=== PATIENT | female | born 1950 | race African-American/Black ===

== ENCOUNTER 2017-06-30 17:43 | Inpatient (IN) | payer MEDICARE, MEDICAID ==
[~2017-06-30 17:43] MED LIST: ISOVUE-370 76%-LOCM 1 ML ONE
[2017-06-30 18:18] LABS: #Lymphocytes 1.4 thou/uL (1.20-3.40); #Monocytes 0.5 thou/uL (0.11-0.59); #Neutrophils 5.6 thou/uL (1.40-6.50); %Basophils 0.3 % (0.0-1.0); %Eosinophils 0.2 % (0.0-10.0); %Lymphocytes 18.4 % (21.0-51.0); %Monocytes 6.1 % (0.0-10.0); Hemoglobin 14.6 g/dL (12.0-16.0); Mean Corpuscular HGB CONC 30.9 g/dL (32.0-36.0); Mean Corpuscular Hemoglobin 28.6 pg (27.0-31.0); Mean Corpuscular Volume 92.7 fl (81.0-99.0); Mean Platelet Volume 9.1 fL (7.4-10.4); Platelet Count 164 thou/uL (130-400); RBC Distribution Width 14.6 % (11.5-14.5); Red Blood Cell (RBC) Count 5.11 mill/uL (4.20-5.40); White Blood Cell (WBC) Count 7.4 thou/uL (4.8-10.8)
[2017-06-30] MEDS ORDERED: Albuterol Sulfate 2.5 mg/3 ml Neb ONE (18:28)
[2017-06-30 18:42] LABS: ALT (SGPT) 15 U/L (8-55); AST (SGOT) 38 U/L (5-34); Albumin 3.8 g/dL (3.4-4.8); Alkaline Phosphatase 59 U/L (40-150); Anion Gap 12 mmol/L (10-20); BUN (Urea Nitrogen) 11 mg/dL (9.8-20.1); Bilirubin, Total 0.7 mg/dL (0.2-1.2); CK (CPK) 172 U/L (29-168); Calc. Creatinine Clearance 0 mL/min (70-130); Calcium 9.4 mg/dL (7.8-10.44); Carbon Dioxide 31 mmol/L (23-31); Chloride 98 mmol/L (98-107); Estimated GFR-MDRD 87; Globulin 4.1 g/dL (2.4-3.5); Glucose 126 mg/dL (80-115); Potassium 3.7 mmol/L (3.5-5.1); Protein, Total 7.9 g/dL (6.0-8.3); Sodium 137 mmol/L (136-145)
[2017-06-30] MEDS ORDERED: methylPREDNISolone Sod Succ/PF 125 MG/2 ML VIAL ONE (18:44)
[2017-06-30] MEDS ORDERED: Magnesium Sulfate 2 GM/100 ML BAG ONE (18:44)
[2017-06-30 18:45] LABS: Troponin I 0.055 ng/mL (< 0.028)
--- NOTE | 2017-06-30 20:17 | RAD ---
PORTABLE AP CHEST RADIOGRAPH: Date: 06-30-17 History: Cough and increasing shortness of breath. Comparison: 10-04-16 FINDINGS: Cardiac silhouette is magnified by projection but does appear mildly enlarged. The pulmonary vasculat ure is within normal limits. Interstitial prominence on the prior study has improved. Lungs appear cl ear on today's examination. There is no other interval change. IMPRESSION: 1. No acute cardiopulmonary process. 2. Mild cardiomegaly, unchanged from prior study. POS: [facility]
[2017-06-30 20:36] LABS: CO2 Tension 59.7 mmHg (35.0-45.0); pH, Arterial 7.35 (7.35-7.45)
[2017-06-30 20:37] LABS: Actual Bicarbonate (HCO3a) 31.8 mEq/L (22-26); Base Excess (BEa) 4.4 mEq/L (0 (+/-) 2.5); Hematocrit-ABG 48.2 % (36.0-47.0); Hemoglobin (Hb) 13.7 g/dL (12.0-16.0); O2 Tension (PaO2) 55.9 mmHg (80.0-100.0)
[2017-06-30 20:38] LABS: ALV-art Gradient 124.355 (0-20); Analyzer IN Cardio ER; Calcium, Ionized 1.2 mmol/L (1.12-1.30); Puncture Site RRA
--- NOTE | 2017-06-30 21:58 | CT ---
CT ANGIOGRAM OF THE CONTRAST WITH IV CONTRAST AND 3D RECONSTRUCTIONS: Date: 06-30-17 History: Cough for two days. Right lower quadrant abdominal pain. Comparison: None available. FINDINGS: No filling defects are seen in the pulmonary arteries to suggest a pulmonary embolus. Vascular calcifications are seen in the coronary arteries and thoracic aorta. Thoracic aorta is yordan l in caliber without evidence of an aortic dissection. There is an increased number of mediastinal ly mph nodes with a prevascular space lymph node measuring 1.2 cm in short axis dimension and a precarin al lymph node measuring approximately 1.7 cm. There is also an enlarged right hilar lymph node measur ing 3 cm x 1.3 cm with soft tissue density also seen in the left hilar region suggesting lymphadenopa thy. This may be reactive in origin. There is a small right pleural effusion with atelectasis present. There is also atelectasis at the le ft lung base. There is an approximately 4 mm nodular density seen along the minor fissure which may r epresent nodular pleural thickening. No additional pulmonary nodule or mass is seen. Visualized upper abdomen demonstrates no gross abnormalities for arterial phase imaging. IMPRESSION: 1. No CT evidence for pulmonary embolus. 2. Atherosclerotic vascular calcifications. 3. Mediastinal and hilar lymphadenopathy which may be reactive in origin. 4. Bibasilar atelectasis with tiny right pleural effusion. POS: [facility]
[2017-06-30 22:13] LABS: Troponin I 0.039 ng/mL (< 0.028)
--- NOTE | 2017-06-30 22:21 | CT ---
CT ABDOMEN AND PELVIS WITH IV CONTRAST: Date: 06-30-17 History: Right lower quadrant abdominal pain. FINDINGS: There is a tiny right pleural effusion with bibasilar atelectasis present. Thin walled cystic structu re is seen in the region of atelectasis at the right lung base. Liver demonstrates diminished attenuation suggesting fatty infiltration. There are few ill-defined ar eas of enhancement at the periphery of the liver, probably related to transient hepatic arterial diff erences due to arterial phase of imaging of this exam. The spleen, pancreas, bilateral adrenal glands, kidneys and urinary bladder demonstrate a normal CT a ppearance for arterial phase of imaging. No enlarged lymph nodes are seen by CT size criteria, but there is an increased number of aortocaval lymph nodes present. Mild to moderate amount of intraperitoneal free fluid is seen in the pelvis. There is evidence of hys terotomy. The appendix is not visualized on this examination. Vascular calcifications are seen in the abdominal aorta and involving the iliac arteries. Degenerative changes are noted in the spine. The small bowel is normal in caliber. There is mild subc utaneous edema posteriorly at the level of the pelvis. IMPRESSION: 1. Small right pleural effusion and atelectasis. 2. Mild fatty infiltration of the liver. 3. Lymphadenopathy based on increased number of lymph nodes in the aortocaval location, but no enlarg ed lymph nodes are identified. 4. Small to moderate amount of ascites in the pelvis. 5. Hysterectomy. POS: [facility]
--- NOTE | 2017-06-30 23:10 | HP ---
DATE OF ADMISSION: 06/30/2017 CHIEF COMPLAINT: Shortness of breath. HISTORY OF PRESENT ILLNESS: This is a 67-year-old -[place] female who was living independent ly by herself. She is a chronic smoker and she continues to smoke and today, she happened to have ac deven shortness of breath, unable to breathe. She called the EMS and the patient was brought to the EM S on the bleeding mass. On a rebreather, she was saturating at 92%, but while she was in the ER, she dropped her saturations to 80% to 88% on nonrebreather mask and was pretty tachypneic, so the patien t was started on BiPAP. She had ABG done which showed a pH of 7.35 with pCO2 of 59.7. The patient d enies having any chest pain at this time. No nausea, no vomiting, no diarrhea, no constipation. She denies having any headache or dizziness at this time. The patient is unable to talk in full sentenc es at this time because of the acute shortness of breath. PAST MEDICAL HISTORY: 1. COPD. 2. Type 2 diabetes mellitus. 3. Hypertension. 4. Dyslipidemia. 5. Anxiety. 6. Bipolar disorder. 7. History of carotid stenosis. 8. History of seizure disorder. PAST SURGICAL HISTORY: 1. Hysterectomy. 2. Tubal ligation. 3. Trigger finger. 4. History of ear surgery, nonspecific at this time. ALLERGIES: No known drug allergies. FAMILY HISTORY: Significant for IL in her father and also coronary artery disease in her mother at a young age. Sister has type 2 diabetes mellitus. SOCIAL HISTORY: The patient is a chronic smoker. She smokes every day at least a pack a day. Denie s alcohol or illicit drug use. She lives alone at home. She has 4 daughters. HOME MEDICATIONS: 1. Budesonide formoterol 1 puff inhalation b.i.d. 2. Combivent inhalation t.i.d. 3. Levofloxacin 750 mg p.o. 2200. 4. Metformin 1000 mg p.o. b.i.d. 5. Mirtazapine 15 mg p.o. at bedtime. 6. Mometasone two puffs inhalation b.i.d. 7. Prednisone 40 mg p.o. daily. 8. Amlodipine 10 mg p.o. daily. 9. Carvedilol 6.25 mg p.o. b.i.d. 10. Clonidine 0.2 mg p.o. b.i.d. 11. Glimepiride 4 mg p.o. b.i.d. 12. Hydralazine 50 mg p.o. b.i.d. 13. Insulin 100 units subcu b.i.d. 14. Losartan 100 mg p.o. daily. 15. Sertraline 100 mg p.o. daily. 16. Simvastatin 10 mg p.o. at bedtime. 17. Sitagliptin 100 mg p.o. daily. 18. Trazodone 100 mg p.o. at bedtime. REVIEW OF SYSTEMS: All 12 systems are reviewed with the patient thoroughly and found to be negative at this time except ones described in the HPI. The following complete review of systems was negative , unless otherwise mentioned in the HPI or below: Constitutional: Weight loss or gain, sense of well-being, ability to conduct usual activities, exerc ise tolerance. Skin/Breast: Rash, itching, changes in hair growth or loss, nail changes, breast lum ps, tenderness, swelling, nipple discharge. Eyes: Vision, double vision, tearing, blind spots, pain . ENT/Mouth: Headaches (location, time of onset, duration, precipitating factors), vertigo, lightheadedness, injury. Vision, double vision, tearing, blind spots, pain, nose b leeding, colds, obstruction, discharge, dental difficulties, gingival bleeding, dentures, neck stiffn ess, pain, tenderness, masses in thyroid or other areas. Cardiovascular: Precordial pain, substerna l distress, palpitations, syncope, dyspnea on exertion, orthopnea, nocturnal paroxysmal dyspnea, vel a, cyanosis, hypertension, heart murmurs, varicosities, phlebitis, claudication. Respiratory: Pain, shortness of breath, wheezing, stridor, cough, hemoptysis, fever or night sweats. Gastrointestinal: Poor appetite, dysphagia, indigestion, abdominal pain, heartburn, eructation, nausea, vomiting, hem atemesis, jaundice, constipation, or diarrhea, abnormal stools (bjorn-colored, tarry, bloody, greasy, foul smelling), flatulence, hemorrhoids, recent changes in bowel habits. Genitourinary: Urgency, fr equency, dysuria, nocturia, hematuria, polyuria, oliguria, unusual (or change in) color of urine, sto toni, hesitancy, change in size of stream, dribbling, acute retention or incontinence, libido, potency . Musculoskeletal: Pain, swelling, redness or heat of muscles or joints, limitation, of motion, mus cular weakness, atrophy, cramps. Neurologic/Psychiatric: Convulsions, paralyses, tremor, incoordina tion, parasthesias, difficulties with memory of speech, sensory or motor disturbances, or muscular co ordination (ataxia, tremor), emotional problems, anxiety, depression, previous psychiatric care, unus ual perceptions, hallucinations. Allergy/Immunologic: Skin rash, anemia, bleeding tendency, polydip elizabeth, polyuria, intolerance to heat or cold. PHYSICAL EXAMINATION: VITAL SIGNS: Blood pressures were 150/88, heart rate is 88, respiratory rate is 22, saturation is 92 % on BiPAP at 40% FiO2. GENERAL: The patient is seen sitting on the bed with 45 degrees inclination on the BiPAP. She appea rs to be in severe respiratory distress. HEENT: Atraumatic, normocephalic. PERRLA. Extraocular movements were intact. Oral mucosa pink and moist. CARDIOVASCULAR: S1, S2 normal. No murmurs, rubs or gallops. LUNGS: The patient has bilateral air entry reduced with wheezing noted bilaterally and diffusely. No crackles were noted, signs of accessory muscle use of respiration. ABDOMEN: Soft, nontender, no guarding, no rebound tenderness. Bowel sounds normal. MUSCULOSKELETAL: No calf tenderness. No pedal edema. No joint tenderness, no joint swelling. SKIN: No cyanosis, no erythema, no rash, no pallor. SENIOR SOLUTIONS ENGINEER: Cranial nerve examination II-XII intact. No focal deficits were noted. LYMPHATIC: Lymphadenopathy, no evidence of generalized lymphadenopathy was noted. PSYCHIATRIC: No signs of suicidal ideation. No signs of vy was noted. LABORATORY DATA: ABG: pH of 7.3, pCO2 was 59, pO2 was 55.9, O2 sats are 87.6. WBC 7.4, hemoglobin 14.6, hematocrit is 47.4, platelets 164. Sodium 137, potassium 3.7, chloride is 98, BUN 11, creatini ne 0.8. Troponin was 0.055 and the next one was 0.03. ASSESSMENT: 1. Acute hypoxic and hypercapnic respiratory failure. 2. Acute chronic obstructive pulmonary disease exacerbation. 3. Demand ischemia. 4. Type 2 diabetes mellitus, well-controlled. 5. History of bipolar disorder. 6. Hypertension. 7. Hyperlipidemia. 8. Insomnia. PLAN: 1. Plan is to admit this patient to the [facility]. We will continue the patient on the BiPAP. Patient h as been started on BiPAP 15/5 with FIO2 to keep saturations more than 92%. I will consult Pulmonary if the patient's condition becomes worse and will repeat the ABG in 2 hours to look for improvement. If the bicarbonate continues to go up, we will consult Pulmonary right away. 2. We will start the patient on Solu-Medrol 40 mg IV q.8 hours. We will continue with DuoNeb nebuli zation q.4 hours scheduled and q.2 hours albuterol nebulizations p.r.n. 3. The patient has evidence of elevated troponins which have been trending down, most likely this is demand ischemia. Patient denies having any chest pain. We will continue the patient on home medica tions. We will start the patient on aspirin. She is on statin and beta kristian. 4. Type 2 diabetes mellitus, well-controlled. We will continue the patient on the home medications. She is on glimepiride 4 mg p.o. b.i.d., and sitagliptin. We will continue these 2 medications and will hold the metformin. 5. Hypertension is well controlled. We will continue the patient on the home medications. She is o n hydralazine and losartan. 6. The patient has history of bipolar disorder. We will continue the patient on sertraline at this time. 7. Deep venous thrombosis prophylaxis. Lovenox 40 mg. Dictating physician. Chin Levin, spent 70 minutes with this patient; of this, one hour as a critical care time.
[2017-07-01 00:51] LABS: Troponin I 0.053 ng/mL (< 0.028)
[2017-07-01] MEDS ORDERED: Acetaminophen 325 MG TAB PO PRN (01:55)
[2017-07-01] MEDS ORDERED: Ondansetron ODT 4 MG TAB PO PRN (01:55)
[2017-07-01] MEDS ORDERED: Ondansetron HCl/PF 4 MG/2 ML Vial IVP PRN (01:55)
[2017-07-01] MEDS ORDERED: Guaifenesin DM 100-10/5 ML UDCUP PO PRN (01:55)
[2017-07-01] MEDS ORDERED: Albuterol Sulfate 2.5 mg/3 ml Neb NEB PRN (01:55)
[2017-07-01] MEDS ORDERED: HYDROcodone/Acetaminophen 5/325 mg Tablet PO PRN (01:55)
[2017-07-01 01:56] VITALS: BMI 32.4
[2017-07-01 02:44] LABS: #Basophils 0.1 thou/uL (0.0-0.2); #Lymphocytes 0.3 thou/uL (1.20-3.40); #Monocytes 0.1 thou/uL (0.11-0.59); #Neutrophils 5.8 thou/uL (1.40-6.50); %Basophils 1.6 % (0.0-1.0); %Eosinophils 0.1 % (0.0-10.0); %Lymphocytes 5.2 % (21.0-51.0); %Monocytes 1.1 % (0.0-10.0); Hemoglobin 13.9 g/dL (12.0-16.0); Mean Corpuscular HGB CONC 31.6 g/dL (32.0-36.0); Mean Corpuscular Hemoglobin 29.2 pg (27.0-31.0); Mean Corpuscular Volume 92.4 fl (81.0-99.0); Mean Platelet Volume 9.3 fL (7.4-10.4); Platelet Count 155 thou/uL (130-400); RBC Distribution Width 14.5 % (11.5-14.5); Red Blood Cell (RBC) Count 4.78 mill/uL (4.20-5.40); White Blood Cell (WBC) Count 6.3 thou/uL (4.8-10.8)
[2017-07-01 03:18] LABS: Anion Gap 13 mmol/L (10-20); BUN (Urea Nitrogen) 14 mg/dL (9.8-20.1); Calc. Creatinine Clearance 89 mL/min (70-130); Calcium 9.1 mg/dL (7.8-10.44); Carbon Dioxide 30 mmol/L (23-31); Chloride 99 mmol/L (98-107); Estimated GFR-MDRD 83; Glucose 247 mg/dL (80-115); Potassium 3.8 mmol/L (3.5-5.1); Sodium 138 mmol/L (136-145)
[2017-07-01 08:21] LABS: CO2 Tension 65.8 mmHg (35.0-45.0); O2 Tension (PaO2) 67.2 mmHg (80.0-100.0); pH, Arterial 7.32 (7.35-7.45)
[2017-07-01 08:22] LABS: Base Excess (BEa) 4.9 mEq/L (0 (+/-) 2.5); Calcium, Ionized 1.2 mmol/L (1.12-1.30); Hematocrit-ABG 46.9 % (36.0-47.0); Hemoglobin (Hb) 13.3 g/dL (12.0-16.0)
[2017-07-01 08:23] LABS: Puncture Site RRA
[2017-07-01] MEDS ORDERED: INSULIN DETEMIR 100 UNIT SC SCH (09:00)
[2017-07-01] MEDS ORDERED: Famotidine/PF 20 mg/2ml Vial SLOW IVP SCH (09:00)
[2017-07-01] MEDS ORDERED: Insulin Detemir 100 UNITS/ML 100 UNITS in Pre-Filled Syringe 1 EACH SC SCH (09:00)
--- NOTE | 2017-07-01 09:00 | CON ---
DATE OF CONSULTATION: 07/01/2017 CONSULTING PHYSICIAN: Dr. Thompson from the Hospitalist group. REASON FOR CONSULTATION: COPD exacerbation. HISTORY OF PRESENT ILLNESS: Ms. Gutierrez is a 67-year-old female who came to the emergency room night with shortness of breath and wheezing, says this started rather acutely yesterday. The jamin ent was placed on BiPAP and remained on BiPAP overnight and feels better this morning. She tells me that she wears oxygen at home 2 liters nasal cannula 24 hours a day. She still smokes at home despit e being counseled to quit in the past. PAST MEDICAL HISTORY: 1. COPD. 2. Diabetes mellitus. 3. Hypertension. 4. Hyperlipidemia. 5. Anxiety. 6. Bipolar disorder. 7. Peripheral vascular disease. 8. Seizure disorder. PAST SURGICAL HISTORY: 1. Hysterectomy. 2. Tubal ligation. 3. Trigger finger release. ALLERGIES: None. FAMILY MEDICAL HISTORY: Remarkable for heart disease. SOCIAL HISTORY: Half pack to 1 pack per day smoker and has done so for over 50 years. She lives at home by herself, has 4 daughters. MEDICATIONS PRIOR TO ADMISSION: Gabapentin 300 mg t.i.d., [place] 10/325 one every 8 hours as needed, Dulera 200/5 two puffs twice daily, Combivent 3 times daily as needed, Lispro insulin 10 units t.i.d. , Levemir insulin 100 units b.i.d., Symbicort is also listed 160/4.5 two puffs b.i.d. She is probabl y not taking Symbicort and Dulera together. Mirtazapine 15 mg nightly, Norvasc 10 mg daily, metformi n 1000 mg b.i.d., Catapres 0.2 mg b.i.d., losartan 100 mg daily, Apresoline 50 mg b.i.d., trazodone 1 00 mg at bedtime, simvastatin 10 mg daily, Januvia 100 mg daily, Amaryl 4 mg b.i.d., sertraline 100 m g daily, carvedilol 6.25 mg b.i.d., fenofibrate 48 mg daily. REVIEW OF SYSTEMS: Twelve point review of systems otherwise negative. PHYSICAL EXAMINATION: VITAL SIGNS: Temperature 98.0, pulse 75, blood pressure 136/61, O2 sat 88-92%, wearing a nasal shayy radha currently. GENERAL: She is an obese female who is in no acute distress. HEENT: Pupils react. Sclerae are anicteric. Oropharynx clear. NECK: Without adenopathy or JVD. LUNGS: She has mild expiratory wheezing bilaterally. No crackles. CARDIAC: S1, S2 regular, without murmur. ABDOMEN: Obese, soft, nontender, nondistended. EXTREMITIES: No clubbing, cyanosis, or edema. NEUROLOGIC: Shows no focal deficits. SKIN: Shows no lesions. LABORATORY DATA: White blood cell count 6.3, hematocrit 44.1, platelet count 155. ABG, pH 7.31, pCO 2 65, pO2 67 that was on BiPAP. Sodium 130, potassium 3.8, chloride 99, CO2 30, BUN 14, creatinine 0 .8, glucose 247. Chest x-ray interpreted by myself shows no mass, effusion or infiltrate. ASSESSMENT: 1. Acute hypercapnic/hypoxic respiratory failure secondary to chronic obstructive pulmonary disease exacerbation. 2. Chronic obstructive pulmonary disease exacerbation. 3. Tobacco abuse. PLAN: Agree with current plan of steroids, nebulization treatment and BiPAP. I agree with antibioti cs. Hopefully she will be able to stay off the BiPAP today and transfer to floor later this afternoo n.
[2017-07-01] MEDS: hydrALAZINE 25 MG TAB PO SCH ×2 (09:56→20:34)
[2017-07-01] MEDS: Docusate 100 MG CAP PO SCH ×2 (09:56→20:32)
[2017-07-01] MEDS: Glimepiride 4 MG TAB PO SCH ×2 (09:56→20:38)
[2017-07-01] MEDS: Alogliptin 25 MG TAB PO SCH (09:56)
[2017-07-01] MEDS: Losartan 25 MG TAB PO SCH (09:56)
[2017-07-01] MEDS: Carvedilol 6.25 MG TAB PO SCH ×2 (09:56→20:31)
[2017-07-01] MEDS: Enoxaparin Sodium 40 MG/0.4 ML SYRINGE SC SCH (09:57)
[2017-07-01] MEDS: cloNIDine 0.2 MG TAB PO SCH ×2 (09:57→20:32)
[2017-07-01] MEDS: Amlodipine 5 MG TAB PO SCH (09:57)
[2017-07-01] MEDS: Famotidine 20 MG TAB PO SCH ×2 (10:10→20:32)
[2017-07-01] MEDS: HumaLOG 300 UNITS/3 ML VIAL SC SCH ×3 (10:11→17:45)
--- NOTE | 2017-07-01 15:22 | PDOC.PN ---
- Subjective Encounter Start Date: 07/01/17 Encounter Start Time: 15:21 Subjective: feels much better.breathing easier - Objective Resuscitation Status: Resuscitation Status FULL:Full Resuscitation MAR Reviewed: Yes Vital Signs & Weight: Vital Signs (12 hours) Temp Pulse Resp Pulse Ox 07/01/17 14:39 87 21 H 93 L 07/01/17 11:00 98.6 F 07/01/17 10:22 81 20 90 L 07/01/17 09:57 77 07/01/17 09:56 77 07/01/17 08:10 77 17 93 L 07/01/17 08:00 98.0 F 77 17 95 Weight Admit Weight 182 lb 15.739 oz Weight 182 lb 15.739 oz Most Recent Monitor Data Heart Rate from ECG 73 NIBP 119/50 NIBP BP-Mean 88 Respiration from ECG 23 SpO2 90 I&O: 06/30/17 07/01/17 07/02/17 06:59 06:59 06:59 Intake Total 100 480 Output Total 200 0 Balance -100 480 Result Diagrams: 07/01/17 02:29 07/01/17 02:29 Additional Labs: Accuchecks 07/01/17 11:56 POC Glucose 261 H Phys Exam - Physical Examination Constitutional: NAD HEENT: PERRLA, moist MMs, sclera anicteric, oral pharynx no lesions Neck: no nodes, no JVD, supple, full ROM Respiratory: no wheezing, no rales, no rhonchi, clear to auscultation bilateral Cardiovascular: RRR, no significant murmur, no rub, gallop Gastrointestinal: soft, non-tender, no distention, positive bowel sounds Musculoskeletal: no edema, pulses present Neurological: non-focal, normal sensation, moves all 4 limbs Psychiatric: normal affect, A&O x 3 Skin: no rash Dx/Plan (1) Acute hypoxemic respiratory failure Code(s): J96.01 - ACUTE RESPIRATORY FAILURE WITH HYPOXIA Status: Acute (2) Acute bronchitis with COPD Code(s): J44.0 - CHRONIC OBSTRUCTIVE PULMON DISEASE W ACUTE LOWER RESP INFCT; J20.9 - ACUTE BRONCHITIS, UNSPECIFIED Status: Acute (3) HTN (hypertension) Code(s): I10 - ESSENTIAL (PRIMARY) HYPERTENSION Status: Acute - Plan continue antibiotics, respiratory therapy, incentive spirometry, out of bed/ ambulate, DVT proph w/SCDs cont Nebs,Steroids,empiric ABx.off of Bipap. -: home meds as below. -: Ok to transfer out of CCU -: am labs * . Review of Systems - Review of Systems Constitutional: negative: fever, chills, sweats, weakness, malaise, other Respiratory: SOB with Excertion. negative: Cough, Dry, Shortness of Breath, Hemoptysis, Pleuritic Pain, Sputum, Wheezing Cardiovascular: negative: chest pain, palpitations, orthopnea, paroxysmal nocturnal dyspnea, edema, light headedness, other Gastrointestinal: negative: Nausea, Vomiting, Abdominal Pain, Diarrhea, Constipation, Melena, Hematochezia, Other Genitourinary: negative: Dysuria, Frequency, Incontinence, Hematuria, Retention , Other Musculoskeletal: negative: Neck Pain, Shoulder Pain, Arm Pain, Back Pain, Hand Pain, Leg Pain, Foot Pain, Other Neurological: negative: Weakness, Numbness, Incoordination, Change in Speech, Confusion, Seizures, Other - Medications/Allergies Allergies/Adverse Reactions: Allergies Allergy/AdvReac Type Severity Reaction Status Date / Time No Known Allergies Allergy Verified 07/05/15 00:55 Medications: Current Medications Acetaminophen (Tylenol) 650 mg PO Q4H PRN PRN Reason: Headache/Fever or Pain Hydrocodone Bitart/Acetaminophen ([place] 5/325) 1 tab PO Q4H PRN PRN Reason: Moderate Pain (4-6) Albuterol Sulfate (Ventolin) 2.5 mg NEB [id number] PRN PRN Reason: SOB &/or Wheezing Albuterol/Ipratropium (Duoneb) 3 ml NEB [id number] [facility] Last Admin: 07/01/17 14:39 Dose: 3 ml Alogliptin Benzoate (Alogliptin) 25 mg PO DAILY [facility] Last Admin: 07/01/17 09:56 Dose: 25 mg Amlodipine Besylate (Norvasc) 10 mg PO DAILY [facility] Last Admin: 07/01/17 09:57 Dose: 10 mg Arformoterol Tartrate (Brovana) 15 mcg NEB BID-RT [facility] Aspirin (Aspirin Chewable) 81 mg PO DAILY [facility] Last Admin: 07/01/17 09:56 Dose: 81 mg Budesonide (Pulmicort Neb Solution) 0.5 mg INH BID-RT [facility] Carvedilol (Coreg) 6.25 mg PO BID [facility] Last Admin: 07/01/17 09:56 Dose: 6.25 mg Clonidine (Catapres) 0.2 mg PO BID [facility] Last Admin: 07/01/17 09:57 Dose: 0.2 mg Docusate Sodium (Colace) 100 mg PO BID [facility] Last Admin: 07/01/17 09:56 Dose: 100 mg Enoxaparin Sodium (Lovenox) 40 mg SC 0900 [facility] Last Admin: 07/01/17 09:57 Dose: 40 mg Famotidine (Pepcid) 20 mg PO Q12HR [facility] Last Admin: 07/01/17 10:10 Dose: 20 mg Glimepiride (Amaryl) 4 mg PO BID [facility] Last Admin: 07/01/17 09:56 Dose: 4 mg Guaifenesin/Dextromethorphan (Robitussin Dm) 15 ml PO Q4H PRN PRN Reason: Cough Hydralazine HCl (Apresoline) 50 mg PO BID [facility] Last Admin: 07/01/17 09:56 Dose: 50 mg Levofloxacin 750 mg/ Device 150 mls @ 100 mls/hr IVPB Q24HR [facility] Last Admin: 07/01/17 02:18 Dose: 150 mls Insulin Detemir 100 units/ (Miscellaneous Medication) 1 mls @ 0 mls/hr SC BID [facility] Influenza Virus Vaccine (Fluzone High-Dose Syr) 0.5 ml IM .ONCE ONE Stop: 07/02/17 09:01 Insulin Human Lispro (Humalog) 10 units SC TID-WM [facility] Last Admin: 07/01/17 11:56 Dose: 10 unit Losartan Potassium (Cozaar) 100 mg PO DAILY [facility] Last Admin: 07/01/17 09:56 Dose: 100 mg Methylprednisolone Sodium Succinate (Solu-Medrol) 40 mg IVP Q6HR [facility] Last Admin: 07/01/17 11:57 Dose: 40 mg Ondansetron HCl (Zofran Odt) 4 mg PO Q6H PRN PRN Reason: Nausea/Vomiting Ondansetron HCl (Zofran) 4 mg IVP Q6H PRN PRN Reason: Nausea/Vomiting Sertraline HCl (Zoloft) 100 mg PO DAILY [facility] Last Admin: 07/01/17 09:57 Dose: 100 mg Simvastatin (Zocor) 10 mg PO HS IZABELA
[2017-07-01] MEDS: Budesonide 0.5 MG/2 ML NEB INH SCH (18:36)
[2017-07-01] MEDS: Arformoterol 15 MCG/2 ML NEB NEB SCH (18:38)
[2017-07-01] MEDS ORDERED: Sodium Chloride 0.9% 10 ML ONE (20:21)
[2017-07-01] MEDS: Insulin Detemir 100 UNITS/ML 100 UNITS in Pre-Filled Syringe 1 EACH SC SCH (20:34)
[2017-07-01] MEDS: Simvastatin 5 MG TAB PO SCH (20:34)
[2017-07-01] MEDS ORDERED: traZODone HCl 50 MG TAB PO SCH (21:00)
--- NOTE | 2017-07-02 07:17 | PDOC.PULPN ---
Progress Note: Subj/Obj - Subjective Date: 07/02/17 Time: 07:16 Narrative: Doing well. Didn't require bipap last pm - Objective Allergies/Adverse Reactions: Allergies Allergy/AdvReac Type Severity Reaction Status Date / Time No Known Allergies Allergy Verified 07/05/15 00:55 MAR Reviewed: Yes Vital Signs: Vital Signs Temp 98.1 F 07/02/17 04:00 Pulse 76 07/02/17 02:00 Resp 17 07/02/17 02:00 BP 130/58 L 07/01/17 20:34 Pulse Ox 93 L 07/02/17 02:00 Intake & Output 07/01/17 07/02/17 07/02/17 18:59 06:59 18:59 Intake Total 720 250 Output Total 0 300 Balance 720 -50 Intake: Intake, IV Amount 150 Levofloxacin 750 mg/D5W 150 750 mg In Premix Bag 1 bag @ 100 mls/hr IVPB Q24HR IZABELA Rx#:[id number] Oral 720 100 Output: Urine 0 300 Other: Voiding Method Incontinent # Unmeasured Voids 1 1 # Urine Diapers 1 1 # Bowel Movements 1 # Bowel Movement Diapers 1 Progress Note: Exam - Physical Exam Constitutional: NAD HEENT: PERRLA Neck: no JVD Cardiovascular: RRR Respiratory: clear to auscultation bilaterally Gastrointestinal: soft, non-tender Musculoskeletal: no edema Neurological: non-focal, moves all 4 limbs Lymphatic: no nodes Psychiatric: normal affect, A&O x 3 Skin: no rash Progress Note: Data - Labs Result Diagrams: 07/01/17 02:29 07/01/17 02:29 Progress Note: A/P - Plan Plan: transfer to medical continue steroids, nebs, abx smoking cessation
[2017-07-02] MEDS: Budesonide 0.5 MG/2 ML NEB INH SCH ×2 (08:35→18:36)
[2017-07-02] MEDS: Arformoterol 15 MCG/2 ML NEB NEB SCH ×2 (08:36→18:36)
[2017-07-02] MEDS ORDERED: FLU VACC TS2017-18 (>65YR) 0.5 ML SYRINGE IM ONE (09:00)
[2017-07-02] MEDS: Alogliptin 25 MG TAB PO SCH (10:16)
[2017-07-02] MEDS: Amlodipine 5 MG TAB PO SCH (10:17)
[2017-07-02] MEDS: Docusate 100 MG CAP PO SCH ×2 (10:18→21:12)
[2017-07-02] MEDS: Carvedilol 6.25 MG TAB PO SCH ×2 (10:18→22:30)
[2017-07-02] MEDS: Enoxaparin Sodium 40 MG/0.4 ML SYRINGE SC SCH (10:19)
[2017-07-02] MEDS: Famotidine 20 MG TAB PO SCH ×2 (10:20→21:13)
[2017-07-02] MEDS: Glimepiride 4 MG TAB PO SCH ×2 (10:20→22:18)
[2017-07-02] MEDS: Losartan 25 MG TAB PO SCH (10:21)
[2017-07-02] MEDS: HumaLOG 300 UNITS/3 ML VIAL SC SCH ×3 (10:28→17:52)
[2017-07-02] MEDS: hydrALAZINE 25 MG TAB PO SCH ×2 (10:29→21:13)
[2017-07-02] MEDS: cloNIDine 0.2 MG TAB PO SCH ×2 (10:29→21:13)
[2017-07-02] MEDS: Insulin Detemir 100 UNITS/ML 100 UNITS in Pre-Filled Syringe 1 EACH SC SCH (10:30)
--- NOTE | 2017-07-02 13:45 | PDOC.PN ---
- Subjective Encounter Start Date: 07/02/17 Encounter Start Time: 13:43 Subjective: feels well.still some SOb w low O2 sats now & then - Objective Resuscitation Status: Resuscitation Status FULL:Full Resuscitation MAR Reviewed: Yes Vital Signs & Weight: Vital Signs (12 hours) Temp Pulse Pulse Pulse Pulse Pulse Resp 07/02/17 12:00 97.4 F L 07/02/17 10:40 74 25 H 07/02/17 10:29 74 07/02/17 10:18 07/02/17 10:17 74 07/02/17 09:46 78 81 77 83 07/02/17 08:34 74 21 H 07/02/17 07:47 98.6 F 71 24 H 07/02/17 07:00 98.6 F 07/02/17 04:00 98.1 F 07/02/17 02:00 76 17 BP BP BP BP BP Pulse Ox Pulse Ox 07/02/17 12:00 07/02/17 10:40 92 L 07/02/17 10:29 127/61 07/02/17 10:18 127/61 07/02/17 10:17 127/61 07/02/17 09:46 136/56 L 97/65 138/61 127/61 88 L 07/02/17 08:34 93 L 07/02/17 07:47 92 L 07/02/17 07:00 07/02/17 04:00 07/02/17 02:00 93 L Pulse Ox Pulse Ox Pulse Ox 07/02/17 12:00 07/02/17 10:40 07/02/17 10:29 07/02/17 10:18 07/02/17 10:17 07/02/17 09:46 85 L 85 L 85 L 07/02/17 08:34 07/02/17 07:47 07/02/17 07:00 07/02/17 04:00 07/02/17 02:00 Weight Admit Weight 182 lb 15.739 oz Weight 182 lb 15.739 oz Most Recent Monitor Data Heart Rate from ECG 81 NIBP 137/54 NIBP BP-Mean 84 Respiration from ECG 24 SpO2 88 I&O: 07/01/17 07/02/17 07/03/17 06:59 06:59 06:59 Intake Total 100 970 460 Output Total 200 300 200 Balance -100 670 260 Result Diagrams: 07/01/17 02:29 07/01/17 02:29 Additional Labs: Accuchecks 07/02/17 07/02/17 07/01/17 10:11 05:15 20:27 POC Glucose 103 100 109 07/01/17 16:26 POC Glucose 85 Microbiology 07/01/17 02:24 Venous blood - Right Arm Blood Culture - Preliminary Specimen has been received and culture in progress. No Growth to date. 07/01/17 02:24 Venous blood - Left Arm Blood Culture - Preliminary Specimen has been received and culture in progress. No Growth to date. Phys Exam - Physical Examination Constitutional: NAD HEENT: PERRLA, moist MMs, sclera anicteric, oral pharynx no lesions Neck: no nodes, no JVD, supple, full ROM Respiratory: no wheezing, no rales, no rhonchi, clear to auscultation bilateral Cardiovascular: RRR, no significant murmur Gastrointestinal: soft, non-tender, no distention, positive bowel sounds Musculoskeletal: no edema, pulses present Neurological: non-focal, normal sensation, moves all 4 limbs Psychiatric: normal affect, A&O x 3 Skin: no rash Dx/Plan (1) Acute hypoxemic respiratory failure Code(s): J96.01 - ACUTE RESPIRATORY FAILURE WITH HYPOXIA Status: Acute (2) Acute bronchitis with COPD Code(s): J44.0 - CHRONIC OBSTRUCTIVE PULMON DISEASE W ACUTE LOWER RESP INFCT; J20.9 - ACUTE BRONCHITIS, UNSPECIFIED Status: Acute (3) HTN (hypertension) Code(s): I10 - ESSENTIAL (PRIMARY) HYPERTENSION Status: Acute - Plan PT/OT, public health social worker, DVT proph w/SCDs Will try 1 dose lasix.few crackles on exam -: BP on lower side .hold clonidine & Hydralazine. -: HD stable.OK to transfer to medical -: cont Nebs,steroids,empiric ABx. -: tobacco cessation advised * . Review of Systems - Review of Systems Constitutional: negative: fever, chills, sweats, weakness, malaise, other ENT: negative: Ear Pain, Ear Discharge, Nose Pain, Nose Discharge, Nose Congestion, Mouth Pain, Mouth Swelling, Throat Pain, Throat Swelling, Other Respiratory: negative: Cough, Dry, Shortness of Breath, Hemoptysis, SOB with Excertion, Pleuritic Pain, Sputum, Wheezing Cardiovascular: negative: chest pain, palpitations, orthopnea, paroxysmal nocturnal dyspnea, edema, light headedness, other Gastrointestinal: negative: Nausea, Vomiting, Abdominal Pain, Diarrhea, Constipation, Melena, Hematochezia, Other Genitourinary: negative: Dysuria, Frequency, Incontinence, Hematuria, Retention , Other Musculoskeletal: negative: Neck Pain, Shoulder Pain, Arm Pain, Back Pain, Hand Pain, Leg Pain, Foot Pain, Other Skin: negative: Rash, Lesions, Edgard, Bruising, Other Neurological: negative: Weakness, Numbness, Incoordination, Change in Speech, Confusion, Seizures, Other - Medications/Allergies Allergies/Adverse Reactions: Allergies Allergy/AdvReac Type Severity Reaction Status Date / Time No Known Allergies Allergy Verified 07/05/15 00:55 Medications: Current Medications Acetaminophen (Tylenol) 650 mg PO Q4H PRN PRN Reason: Headache/Fever or Pain Hydrocodone Bitart/Acetaminophen ([place] 5/325) 1 tab PO Q4H PRN PRN Reason: Moderate Pain (4-6) Albuterol Sulfate (Ventolin) 2.5 mg NEB [id number] PRN PRN Reason: SOB &/or Wheezing Albuterol/Ipratropium (Duoneb) 3 ml NEB [id number] [facility] Last Admin: 07/02/17 10:40 Dose: 3 ml Alogliptin Benzoate (Alogliptin) 25 mg PO DAILY [facility] Last Admin: 07/02/17 10:16 Dose: 25 mg Amlodipine Besylate (Norvasc) 10 mg PO DAILY [facility] Last Admin: 07/02/17 10:17 Dose: 10 mg Arformoterol Tartrate (Brovana) 15 mcg NEB BID-RT [facility] Last Admin: 07/02/17 08:36 Dose: 15 mcg Aspirin (Aspirin Chewable) 81 mg PO DAILY [facility] Last Admin: 07/02/17 10:16 Dose: 81 mg Budesonide (Pulmicort Neb Solution) 0.5 mg INH BID-RT [facility] Last Admin: 07/02/17 08:35 Dose: 0.5 mg Carvedilol (Coreg) 6.25 mg PO BID [facility] Last Admin: 07/02/17 10:18 Dose: 6.25 mg Clonidine (Catapres) 0.2 mg PO BID [facility] Last Admin: 07/02/17 10:29 Dose: Not Given Docusate Sodium (Colace) 100 mg PO BID [facility] Last Admin: 07/02/17 10:18 Dose: 100 mg Enoxaparin Sodium (Lovenox) 40 mg SC 0900 [facility] Last Admin: 07/02/17 10:19 Dose: 40 mg Famotidine (Pepcid) 20 mg PO Q12HR [facility] Last Admin: 07/02/17 10:20 Dose: 20 mg Glimepiride (Amaryl) 4 mg PO BID [facility] Last Admin: 07/02/17 10:20 Dose: 4 mg Guaifenesin/Dextromethorphan (Robitussin Dm) 15 ml PO Q4H PRN PRN Reason: Cough Hydralazine HCl (Apresoline) 50 mg PO BID [facility] Last Admin: 07/02/17 10:29 Dose: Not Given Levofloxacin 750 mg/ Device 150 mls @ 100 mls/hr IVPB Q24HR [facility] Last Admin: 07/02/17 02:18 Dose: 150 mls Insulin Detemir 100 units/ (Miscellaneous Medication) 1 mls @ 0 mls/hr SC BID [facility] Last Admin: 07/02/17 10:30 Dose: Not Given Insulin Human Lispro (Humalog) 10 units SC TID-WM [facility] Last Admin: 07/02/17 12:36 Dose: Not Given Losartan Potassium (Cozaar) 100 mg PO DAILY [facility] Last Admin: 07/02/17 10:21 Dose: 100 mg Methylprednisolone Sodium Succinate (Solu-Medrol) 40 mg IVP Q6HR [facility] Last Admin: 07/02/17 12:36 Dose: 40 mg Ondansetron HCl (Zofran Odt) 4 mg PO Q6H PRN PRN Reason: Nausea/Vomiting Ondansetron HCl (Zofran) 4 mg IVP Q6H PRN PRN Reason: Nausea/Vomiting Sertraline HCl (Zoloft) 100 mg PO DAILY [facility] Last Admin: 07/02/17 10:20 Dose: 100 mg Simvastatin (Zocor) 10 mg PO HS [facility] Last Admin: 07/01/17 20:34 Dose: 10 mg
[2017-07-02] MEDS ORDERED: Furosemide 20 MG/2 ML VIAL SLOW IVP SCH (14:00)
[2017-07-02] MEDS: Simvastatin 5 MG TAB PO SCH (21:12)
[2017-07-02] MEDS: Nicotine 21 MG PATCH TOP SCH (21:14)
[2017-07-03] MEDS: Arformoterol 15 MCG/2 ML NEB NEB SCH ×2 (06:47→18:23)
[2017-07-03] MEDS: Budesonide 0.5 MG/2 ML NEB INH SCH ×2 (06:49→18:23)
--- NOTE | 2017-07-03 08:28 | PDOC.PULPN ---
Progress Note: Subj/Obj - Subjective Date: 07/03/17 Time: 08:26 Narrative: Feels better. Wants to go home - ROS Respiratory: productive cough - Objective Allergies/Adverse Reactions: Allergies Allergy/AdvReac Type Severity Reaction Status Date / Time No Known Allergies Allergy Verified 07/05/15 00:55 MAR Reviewed: Yes Vital Signs: Vital Signs Temp 98 F 07/03/17 01:59 Pulse 96 07/03/17 06:49 Resp 20 07/03/17 06:49 BP 168/81 H 07/03/17 03:30 Pulse Ox 92 L 07/03/17 06:49 Intake & Output 07/02/17 07/03/17 07/03/17 18:59 06:59 18:59 Intake Total 460 120 Output Total 400 Balance 60 120 Intake: Intake, IV Amount 0 Oral 460 120 Output: Urine 400 Other: Voiding Method Diaper Diaper # Urine Diapers 1 # Bowel Movements 1 Progress Note: Exam - Physical Exam Constitutional: NAD HEENT: PERRLA, moist MMs Neck: no nodes Cardiovascular: RRR Respiratory: decreased breath sounds Gastrointestinal: soft, non-tender Musculoskeletal: no edema Neurological: non-focal Lymphatic: no nodes Psychiatric: normal affect, A&O x 3 Skin: no rash Progress Note: Data - Labs Result Diagrams: 07/01/17 02:29 07/01/17 02:29 Progress Note: A/P - Problems (1) Chronic obstructive pulmonary disease with acute exacerbation Current Visit: Yes Status: Acute Code(s): J44.1 - CHRONIC OBSTRUCTIVE PULMONARY DISEASE W (ACUTE) EXACERBATION - Plan Plan: Patient likely close to baseline Change to oral steroids and taper over 2 weeks finish 7 days abx can stop brovana and pulmicort at the time of discharge Needs to be on either symbicort or dulera at home, but not both at the same time (her home med list says she is on both) smoking cessation
[2017-07-03] MEDS: HumaLOG 300 UNITS/3 ML VIAL SC SCH ×3 (08:49→18:05)
[2017-07-03] MEDS: Glimepiride 4 MG TAB PO SCH ×3 (08:49→21:00)
[2017-07-03] MEDS: Carvedilol 6.25 MG TAB PO SCH ×2 (08:51→20:15)
[2017-07-03] MEDS: hydrALAZINE 25 MG TAB PO SCH ×2 (08:52→20:15)
[2017-07-03] MEDS: Losartan 25 MG TAB PO SCH (08:52)
[2017-07-03] MEDS: Docusate 100 MG CAP PO SCH ×2 (08:53→20:14)
[2017-07-03] MEDS: Famotidine 20 MG TAB PO SCH ×2 (08:53→20:14)
[2017-07-03] MEDS: cloNIDine 0.2 MG TAB PO SCH ×2 (08:53→20:14)
[2017-07-03] MEDS: Amlodipine 5 MG TAB PO SCH (08:54)
[2017-07-03] MEDS: Enoxaparin Sodium 40 MG/0.4 ML SYRINGE SC SCH (08:56)
[2017-07-03] MEDS: predniSONE 20 MG TAB PO SCH ×2 (10:04→20:16)
--- NOTE | 2017-07-03 15:36 | PDOC.PN ---
- Subjective Encounter Start Date: 07/03/17 Encounter Start Time: 15:35 Subjective: pt was asleep w/o O2 on enetering the room -: O2 addis checked and at 74%.O2 put back on-sats 88% -: pt advised to keep o2 on all times - Objective Resuscitation Status: Resuscitation Status FULL:Full Resuscitation MAR Reviewed: Yes Vital Signs & Weight: Vital Signs (12 hours) Temp Pulse Pulse Resp BP BP BP 07/03/17 14:34 88 16 07/03/17 10:03 84 16 07/03/17 08:54 92 152/78 H 07/03/17 08:53 152/73 H 07/03/17 08:52 92 152/78 H 07/03/17 08:51 172/78 H 07/03/17 08:36 90 152/78 H 07/03/17 08:00 98.9 F 84 16 133/68 07/03/17 06:49 96 20 07/03/17 06:47 96 20 Pulse Ox Pulse Ox 07/03/17 14:34 94 L 07/03/17 10:03 92 L 07/03/17 08:54 07/03/17 08:53 07/03/17 08:52 07/03/17 08:51 07/03/17 08:36 88 L 07/03/17 08:00 86 L 07/03/17 06:49 92 L 07/03/17 06:47 92 L Weight Admit Weight 182 lb 15.739 oz Weight 182 lb 15.739 oz Most Recent Monitor Data Heart Rate from ECG 76 NIBP 144/65 NIBP BP-Mean 117 Respiration from ECG 25 SpO2 92 I&O: 07/02/17 07/03/17 07/04/17 06:59 06:59 06:59 Intake Total 970 580 370 Output Total 300 400 Balance 670 180 370 Result Diagrams: 07/01/17 02:29 07/01/17 02:29 Additional Labs: Accuchecks 07/03/17 07/03/17 07/03/17 11:37 06:42 04:57 POC Glucose 74 104 64 L 07/02/17 07/02/17 20:39 17:01 POC Glucose 117 H 228 H Microbiology 07/01/17 02:24 Venous blood - Right Arm Blood Culture - Preliminary NO GROWTH AT 48 HOURS 07/01/17 02:24 Venous blood - Left Arm Blood Culture - Preliminary NO GROWTH AT 48 HOURS Laboratory Tests 06/30/17 06/30/17 07/01/17 18:11 21:29 00:17 Troponin I 0.055 H 0.039 H 0.053 H Phys Exam - Physical Examination Constitutional: NAD somnolent HEENT: PERRLA, moist MMs, sclera anicteric, oral pharynx no lesions Neck: no nodes, no JVD, supple, full ROM Respiratory: no rales, no rhonchi, wheezing present, clear to auscultation bilateral Cardiovascular: RRR, no significant murmur, no rub, gallop Gastrointestinal: soft, non-tender, no distention, positive bowel sounds Musculoskeletal: no edema, pulses present Neurological: non-focal, normal sensation, moves all 4 limbs Psychiatric: normal affect, A&O x 3 Skin: no rash Dx/Plan (1) Acute hypoxemic respiratory failure Code(s): J96.01 - ACUTE RESPIRATORY FAILURE WITH HYPOXIA Status: Acute (2) Acute bronchitis with COPD Code(s): J44.0 - CHRONIC OBSTRUCTIVE PULMON DISEASE W ACUTE LOWER RESP INFCT; J20.9 - ACUTE BRONCHITIS, UNSPECIFIED Status: Acute (3) HTN (hypertension) Code(s): I10 - ESSENTIAL (PRIMARY) HYPERTENSION Status: Acute - Plan continue antibiotics, PT/OT, case management social worker, respiratory therapy, incentive spirometry, out of bed/ambulate, DVT proph w/SCDs Still somewhat hypoxic on 4 L.uses 2L at home -: extensive h/o tobacco abuse.on Nicotine patch now -: cont empiric ABx,p[o steroids,nebs,brovana,[id number] -: PCCM following. -: may need to stay in hospital another 24-48 hrs [facility] * . Review of Systems - Review of Systems Constitutional: negative: fever, chills, sweats, weakness, malaise, other ENT: negative: Ear Pain, Ear Discharge, Nose Pain, Nose Discharge, Nose Congestion, Mouth Pain, Mouth Swelling, Throat Pain, Throat Swelling, Other Respiratory: negative: Cough, Dry, Shortness of Breath, Hemoptysis, SOB with Excertion, Pleuritic Pain, Sputum, Wheezing Cardiovascular: negative: chest pain, palpitations, orthopnea, paroxysmal nocturnal dyspnea, edema, light headedness, other Gastrointestinal: negative: Nausea, Vomiting, Abdominal Pain, Diarrhea, Constipation, Melena, Hematochezia, Other Genitourinary: negative: Dysuria, Frequency, Incontinence, Hematuria, Retention , Other Musculoskeletal: negative: Neck Pain, Shoulder Pain, Arm Pain, Back Pain, Hand Pain, Leg Pain, Foot Pain, Other Skin: negative: Rash, Lesions, Edgard, Bruising, Other Neurological: negative: Weakness, Numbness, Incoordination, Change in Speech, Confusion, Seizures, Other - Medications/Allergies Allergies/Adverse Reactions: Allergies Allergy/AdvReac Type Severity Reaction Status Date / Time No Known Allergies Allergy Verified 07/05/15 00:55 Medications: Current Medications Acetaminophen (Tylenol) 650 mg PO Q4H PRN PRN Reason: Headache/Fever or Pain Hydrocodone Bitart/Acetaminophen ([place] 5/325) 1 tab PO Q4H PRN PRN Reason: Moderate Pain (4-6) Albuterol Sulfate (Ventolin) 2.5 mg NEB [id number] PRN PRN Reason: SOB &/or Wheezing Last Admin: 07/02/17 20:34 Dose: 2.5 mg Albuterol/Ipratropium (Duoneb) 3 ml NEB [id number] [facility] Last Admin: 07/03/17 14:34 Dose: 3 ml Amlodipine Besylate (Norvasc) 10 mg PO DAILY [facility] Last Admin: 07/03/17 08:54 Dose: 10 mg Arformoterol Tartrate (Brovana) 15 mcg NEB BID-RT [facility] Last Admin: 07/03/17 06:47 Dose: 15 mcg Aspirin (Aspirin Chewable) 81 mg PO DAILY [facility] Last Admin: 07/03/17 08:56 Dose: 81 mg Budesonide (Pulmicort Neb Solution) 0.5 mg INH BID-RT [facility] Last Admin: 07/03/17 06:49 Dose: 0.5 mg Carvedilol (Coreg) 6.25 mg PO BID [facility] Last Admin: 07/03/17 08:51 Dose: 6.25 mg Clonidine (Catapres) 0.2 mg PO BID [facility] Last Admin: 07/03/17 08:53 Dose: 0.2 mg Docusate Sodium (Colace) 100 mg PO BID [facility] Last Admin: 07/03/17 08:53 Dose: 100 mg Enoxaparin Sodium (Lovenox) 40 mg SC 0900 [facility] Last Admin: 07/03/17 08:56 Dose: 40 mg Famotidine (Pepcid) 20 mg PO Q12HR [facility] Last Admin: 07/03/17 08:53 Dose: 20 mg Glimepiride (Amaryl) 4 mg PO BID [facility] Last Admin: 07/03/17 08:58 Dose: Not Given Guaifenesin/Dextromethorphan (Robitussin Dm) 15 ml PO Q4H PRN PRN Reason: Cough Hydralazine HCl (Apresoline) 50 mg PO BID [facility] Last Admin: 07/03/17 08:52 Dose: 50 mg Levofloxacin 750 mg/ Device 150 mls @ 100 mls/hr IVPB Q24HR [facility] Last Admin: 07/03/17 01:20 Dose: 150 mls Insulin Human Lispro (Humalog) 10 units SC TID-WM [facility] Last Admin: 07/03/17 11:52 Dose: Not Given Losartan Potassium (Cozaar) 100 mg PO DAILY [facility] Last Admin: 07/03/17 08:52 Dose: 100 mg Nicotine (Nicoderm Patch) 21 mg TOP Q24HR [facility] Last Admin: 07/02/17 21:14 Dose: 21 mg Ondansetron HCl (Zofran Odt) 4 mg PO Q6H PRN PRN Reason: Nausea/Vomiting Ondansetron HCl (Zofran) 4 mg IVP Q6H PRN PRN Reason: Nausea/Vomiting Prednisone (Prednisone) 20 mg PO BID [facility] Last Admin: 07/03/17 10:04 Dose: 20 mg Sertraline HCl (Zoloft) 100 mg PO DAILY [facility] Last Admin: 07/03/17 08:53 Dose: 100 mg Simvastatin (Zocor) 10 mg PO HS [facility] Last Admin: 07/02/17 21:12 Dose: 10 mg
[2017-07-03] MEDS: Simvastatin 5 MG TAB PO SCH (20:14)
[2017-07-03] MEDS: Nicotine 21 MG PATCH TOP SCH (20:16)
[2017-07-04 05:56] LABS: #Lymphocytes 0.5 thou/uL (1.20-3.40); #Monocytes 0.5 thou/uL (0.11-0.59); #Neutrophils 3.6 thou/uL (1.40-6.50); %Eosinophils 0.1 % (0.0-10.0); %Lymphocytes 10.1 % (21.0-51.0); %Monocytes 11.6 % (0.0-10.0); %Neutrophils 78.2 % (42.0-75.0); Band 8 % (5-11); Hemoglobin 14.2 g/dL (12.0-16.0); Lymphocytes 12 % (21-51); MDiff Complete? YES; Mean Corpuscular HGB CONC 29.2 g/dL (32.0-36.0); Mean Corpuscular Hemoglobin 27.3 pg (27.0-31.0); Mean Corpuscular Volume 93.5 fl (81.0-99.0); Mean Platelet Volume 9.6 fL (7.4-10.4); Monocytes 6 % (0-10); Neutrophil 74 % (42-75); PLT Morphology Comment Appears Decreased; Platelet Count 118 thou/uL (130-400); RBC Distribution Width 14.5 % (11.5-14.5); White Blood Cell (WBC) Count 4.6 thou/uL (4.8-10.8)
[2017-07-04 06:10] LABS: BUN (Urea Nitrogen) 14 mg/dL (9.8-20.1); Calc. Creatinine Clearance 101 mL/min (70-130); Calcium 9.3 mg/dL (7.8-10.44); Estimated GFR-MDRD Greater than 90; Glucose 180 mg/dL (80-115)
[2017-07-04 06:19] LABS: Anion Gap 15 mmol/L (10-20); Carbon Dioxide 35 mmol/L (23-31); Chloride 93 mmol/L (98-107); Potassium 3.5 mmol/L (3.5-5.1); Sodium 139 mmol/L (136-145)
[2017-07-04] MEDS: Arformoterol 15 MCG/2 ML NEB NEB SCH (06:47)
[2017-07-04] MEDS: Budesonide 0.5 MG/2 ML NEB INH SCH (06:48)
[2017-07-04] MEDS: Docusate 100 MG CAP PO SCH (08:19)
[2017-07-04] MEDS: Carvedilol 6.25 MG TAB PO SCH (08:19)
[2017-07-04] MEDS: Losartan 25 MG TAB PO SCH (08:19)
[2017-07-04] MEDS: Glimepiride 4 MG TAB PO SCH (08:20)
[2017-07-04] MEDS: Famotidine 20 MG TAB PO SCH (08:20)
[2017-07-04] MEDS: Amlodipine 5 MG TAB PO SCH (08:20)
[2017-07-04] MEDS: cloNIDine 0.2 MG TAB PO SCH (08:20)
[2017-07-04] MEDS: hydrALAZINE 25 MG TAB PO SCH (08:21)
[2017-07-04] MEDS: predniSONE 20 MG TAB PO SCH (08:21)
[2017-07-04] MEDS: Enoxaparin Sodium 40 MG/0.4 ML SYRINGE SC SCH (08:29)
[2017-07-04] MEDS: HumaLOG 300 UNITS/3 ML VIAL SC SCH ×2 (08:32→13:45)
[2017-07-04 08:33] VITALS: BP 138/76
[2017-07-04 08:38] VITALS: TEMP 98.3
--- NOTE | 2017-07-04 09:00 | PRG ---
DATE OF SERVICE: 07/04/2017 SUBJECTIVE: The patient is doing reasonably well and wants to go home. OBJECTIVE: VITAL SIGNS: Temperature is 98.2, pulse 81, blood pressure 131/76, O2 saturation is 96% on 3.5 liter s. HEENT: Unremarkable. NECK: No JVD. LUNGS: Clear, but distant breath sounds. CARDIAC: S1 and S2 regular. ABDOMEN: Soft. EXTREMITIES: No edema. LABORATORY DATA: White blood cell count 4.6, hematocrit 48.6, platelet count 118. Sodium 139, potas sium 3.5, BUN 14, creatinine 0.7, glucose 180. ASSESSMENT: Chronic obstructive pulmonary disease with exacerbation - likely back at her baseline. PLAN: She is stable for discharge to home from my standpoint, she needs to finish a round of antibio tics and tapering dose of steroids over 2 weeks. Follow up with her primary care doctor.
--- NOTE | 2017-07-04 12:47 | PDOC.PN ---
- Subjective Encounter Start Date: 07/04/17 Encounter Start Time: 12:45 Ms. Gutierrez was seen today in follow-up. She does not have any complaints. She tells me she already has oxygen at home. - Objective Resuscitation Status: Resuscitation Status FULL:Full Resuscitation MAR Reviewed: Yes Vital Signs & Weight: Vital Signs (12 hours) Temp Pulse Resp BP BP Pulse Ox 07/04/17 10:28 72 16 98 07/04/17 08:21 81 138/76 07/04/17 08:20 81 138/76 07/04/17 08:19 138/76 07/04/17 08:00 98.3 F 81 20 138/76 92 L 07/04/17 06:48 74 18 96 07/04/17 06:47 74 18 96 07/04/17 04:00 98.2 F 73 24 H 136/79 91 L Weight Admit Weight 182 lb 15.739 oz Weight 182 lb 15.739 oz Most Recent Monitor Data Heart Rate from ECG 76 NIBP 144/65 NIBP BP-Mean 117 Respiration from ECG 25 SpO2 92 I&O: 07/03/17 07/04/17 07/05/17 06:59 06:59 06:59 Intake Total 580 550 Output Total 400 Balance 180 550 Result Diagrams: 07/04/17 04:45 07/04/17 04:45 Additional Labs: Accuchecks 07/04/17 07/04/17 07/04/17 10:59 08:30 05:06 POC Glucose 106 129 H 172 H 07/03/17 07/03/17 07/03/17 20:37 16:23 11:37 POC Glucose 170 H 113 H 74 Phys Exam - Physical Examination HEENT: PERRLA + rhonchi bilaterally Cardiovascular: RRR, no significant murmur, no rub Gastrointestinal: soft, non-tender, positive bowel sounds Musculoskeletal: no edema Dx/Plan (1) Acute on chronic respiratory failure with hypoxemia Code(s): J96.21 - ACUTE AND CHRONIC RESPIRATORY FAILURE WITH HYPOXIA Status: Acute (2) Chronic obstructive pulmonary disease with acute exacerbation Code(s): J44.1 - CHRONIC OBSTRUCTIVE PULMONARY DISEASE W (ACUTE) EXACERBATION Status: Acute (3) HTN (hypertension) Code(s): I10 - ESSENTIAL (PRIMARY) HYPERTENSION Status: Acute (4) Diabetes mellitus Code(s): E11.9 - TYPE 2 DIABETES MELLITUS WITHOUT COMPLICATIONS Status: Chronic Qualifiers: Diabetes mellitus type: type 2 (5) HTN (hypertension) Code(s): I10 - ESSENTIAL (PRIMARY) HYPERTENSION Status: Chronic - Plan * Acute on chronic respiratory failure- improved * She has been transitioned to Levaquin, orally and Prednisone * HTN- blood pressure is well controlled * DM- blood glucose is stable * She is stable from the Pulmonary standpoint to be discharged, discharge planning is in progress. .
--- NOTE | 2017-07-04 23:30 | DIS ---
100 mg daily, Combivent inhaler 3 times a day, Levemir 100 units twice a day, [place] 10/325 q.8 as needed, hydralazine 50 mg twice a day, glimepiride 4 mg twice a day, gabapentin 300 mg 3 times a d ay, fenofibrate 48 mg daily, clonidine 0.2 mg twice a day, carvedilol 6.25 mg twice daily, Symbicort 160/4.5 twice a day, amlodipine 10 mg daily. PROCEDURES DONE DURING ADMISSION: The patient had a CT scan of the abdomen showing a small right pleural effusion and atelectasis as we ll as mild fatty infiltration of the liver and some lymphadenopathy and some small to moderate ascite s in the pelvis, also hysterectomy. The patient also had a CT angiogram of the chest. There is no e vidence of pulmonary embolism and there was some bibasilar atelectasis. CODE STATUS: FULL CODE. ALLERGIES: No known drug allergies. HOSPITAL COURSE: Ms. Gutierrez is a pleasant 67-year-old female who presented to the emergency room with complaints of shortness of breath. She was found to be hypoxemic. She required BiPAP. She wa s admitted and evaluated by Pulmonology. She was treated for severe COPD exacerbation with IV antibi otics, IV steroids, and neb treatments in addition to her usual home inhalers. She improved over the course of the next few days and was able to subsequently be transitioned to home with home health. She is to have close outpatient followup with her primary care physician.
== END 2017-07-04 16:53 | disposition home health service (06) | DRG 189 ==
LOC: ERS 17:43 → CCU 22:10 → T4-B 07-02 15:42
PROVIDERS: ADMIT Internal Medicine; ATTEND Internal Medicine
PROC: 5A09357 Assistance with Respiratory Ventilation, Less than 24 Consecutive Hours, Continuous Positive Airway Pressure (ICD-10-PCS; principal; 2017-06-30)
DX: J96.21 Acute and chronic respiratory failure with hypoxia (principal); I24.8 Other forms of acute ischemic heart disease; R18.8 Other ascites; J90 Pleural effusion, not elsewhere classified; J44.0 Chronic obstructive pulmonary disease with (acute) lower respiratory infection; J44.1 Chronic obstructive pulmonary disease with (acute) exacerbation; J98.11 Atelectasis; J96.02 Acute respiratory failure with hypercapnia; F17.210 Nicotine dependence, cigarettes, uncomplicated; E11.9 Type 2 diabetes mellitus without complications; I10 Essential (primary) hypertension; E78.5 Hyperlipidemia, unspecified; F41.9 Anxiety disorder, unspecified; F31.9 Bipolar disorder, unspecified; Z79.4 Long term (current) use of insulin; G47.00 Insomnia, unspecified; Z79.51 Long term (current) use of inhaled steroids; K76.0 Fatty (change of) liver, not elsewhere classified; Z99.81 Dependence on supplemental oxygen; J20.9 Acute bronchitis, unspecified
CPT/HCPCS: 36415; 36416; 71045; 71275; 74177; 80048; 80053; 82550; 82553; 82805; 84484; 85025; 87040; 90471; 90682; 93005; 94640; 94644; 94660; 94760; 96365; 96375; 96376; 99292; 99406; A4216; G0008; G8978-GP-CJ; G8979-GP-CH; G8987-GO-CM; G8988-GO-CK; J1650; J1815; J1940; J1956; J2920; J2930; J3475; J7506; J7611; J7620; J7626; Q2036

== ENCOUNTER 2017-08-26 01:30 | Inpatient (IN) | payer MEDICARE, MEDICAID ==
[2017-08-26 02:10] LABS: #Eosinphils 0.1 thou/uL (0.0-0.7); #Lymphocytes 1.5 thou/uL (1.20-3.40); #Monocytes 0.5 thou/uL (0.11-0.59); #Neutrophils 5.7 thou/uL (1.40-6.50); %Basophils 0.4 % (0.0-1.0); %Eosinophils 1.6 % (0.0-10.0); %Monocytes 6.7 % (0.0-10.0); %Neutrophils 72.3 % (42.0-75.0); Mean Corpuscular HGB CONC 30.2 g/dL (32.0-36.0); Mean Corpuscular Hemoglobin 27.9 pg (27.0-31.0); Mean Corpuscular Volume 92.2 fl (81.0-99.0); Mean Platelet Volume 8.8 fL (7.4-10.4); Platelet Count 192 thou/uL (130-400); RBC Distribution Width 16.4 % (11.5-14.5); Red Blood Cell (RBC) Count 4.68 mill/uL (4.20-5.40); White Blood Cell (WBC) Count 7.9 thou/uL (4.8-10.8)
[2017-08-26 02:24] LABS: ALT (SGPT) 11 U/L (8-55); AST (SGOT) 29 U/L (5-34); Albumin 3.5 g/dL (3.4-4.8); Alkaline Phosphatase 45 U/L (40-150); Anion Gap 8 mmol/L (10-20); BUN (Urea Nitrogen) 32 mg/dL (9.8-20.1); Bilirubin, Total 0.6 mg/dL (0.2-1.2); CK (CPK) 69 U/L (29-168); Calc. Creatinine Clearance 0 mL/min (70-130); Calcium 9.2 mg/dL (7.8-10.44); Carbon Dioxide 31 mmol/L (23-31); Chloride 105 mmol/L (98-107); Estimated GFR-MDRD 51; Globulin 3.6 g/dL (2.4-3.5); Glucose 199 mg/dL (80-115); Potassium 4.3 mmol/L (3.5-5.1); Protein, Total 7.1 g/dL (6.0-8.3); Sodium 140 mmol/L (136-145)
[2017-08-26 03:00] LABS: CKMB 2.2 ng/mL (0-6.6); Troponin I 0.012 ng/mL (< 0.028)
[2017-08-26 03:04] LABS: Actual Bicarbonate (HCO3a) 29.1 mEq/L (22-26); Base Excess (BEa) 1.6 mEq/L (0 (+/-) 2.5); CO2 Tension 59.3 mmHg (35.0-45.0); Hematocrit-ABG 44.4 % (36.0-47.0); Hemoglobin (Hb) 12.9 g/dL (12.0-16.0); O2 Tension (PaO2) 64.9 mmHg (80.0-100.0); pH, Arterial 7.31 (7.35-7.45)
[2017-08-26 03:06] LABS: Analyzer IN Cardio ER; Calcium, Ionized 1.3 mmol/L (1.12-1.30); Puncture Site LRA
[2017-08-26 03:07] LABS: ALV-art Gradient 60.615 (0-20)
[2017-08-26] MEDS ORDERED: Furosemide 40 MG/4 ML VIAL ONE (04:51)
[2017-08-26] MEDS ORDERED: Dextrose 50% Abboject 50 ML SYRINGE SLOW IVP PRN (05:09)
[2017-08-26] MEDS ORDERED: Dextrose 5% in Water 1,000 ML IV PRN (05:09)
[2017-08-26] MEDS ORDERED: Albuterol Sulfate 2.5 mg/3 ml Neb NEB PRN (05:41)
[2017-08-26] MEDS ORDERED: Acetaminophen 325 MG TAB PO PRN (05:41)
[2017-08-26] MEDS ORDERED: Milk Of Magnesia 30 ML UDCUP PO PRN (05:41)
--- NOTE | 2017-08-26 07:01 | PDOC.EVN ---
Event Note - Event Note Event Note: Patient admitted for acute hypoxic respiratory failure. Initial critical care time 35 minutes. For more details, please refer to H and P.
--- NOTE | 2017-08-26 08:09 | RAD ---
SINGLE VIEW OF THE CHEST: COMPARISON: 06/30/17. HISTORY: Dyspnea and wheezing. FINDINGS: A single view of the chest shows an enlarged cardiomediastinal silhouette. Opacities are seen obscur ing both hemidiaphragms which likely represent pleural effusions and adjacent atelectasis versus infi ltrates. IMPRESSION: 1. Cardiomegaly. 2. Bilateral pleural effusions with adjacent atelectasis versus infiltrates. POS: H
[2017-08-26 09:28] LABS: Troponin I Less than 0.010 ng/mL (< 0.028)
[2017-08-26] MEDS ORDERED: HumaLOG 300 UNITS/3 ML VIAL ONE (11:17)
[2017-08-26] MEDS ORDERED: Heparin 5,000 UNITS/ML VIAL ONE (11:17)
[2017-08-26] MEDS ORDERED: Docusate 100 MG CAP PO SCH (11:30)
[2017-08-26] MEDS: Heparin 5,000 UNITS/ML VIAL SC SCH ×3 (13:48→20:02)
[2017-08-26] MEDS: Docusate 100 MG CAP PO SCH ×2 (13:48→20:03)
--- NOTE | 2017-08-26 13:48 | CON ---
DATE OF CONSULTATION: 08/26/2017 CONSULTING PHYSICIAN: Dr. Alvarez. REASON FOR CONSULTATION: Acute respiratory failure. HISTORY OF PRESENT ILLNESS: At the time of this dictation, there is no history and physical or ER notes on the chart. The patient is a very poor historian from what I can gather, this is the same as previous admissions. She comes in with shortness of breath, has been progressing over the last day or two. She is still smoking some at home. She was placed on BiPAP last night, but that has been taken off this morning. PAST MEDICAL HISTORY: 1. COPD. 2. Diabetes mellitus. 3. Hypertension. 4. Hyperlipidemia. 5. Anxiety disorder. 6. Bipolar disorder. 7. Peripheral vascular disease. 8. Seizure disorder. PAST SURGICAL HISTORY: 1. Hysterectomy. 2. Tubal ligation. 3. Trigger finger release. ALLERGIES: None. FAMILY MEDICAL HISTORY: Remarkable for heart disease. SOCIAL HISTORY: Pretty much 1 pack per day smoker for most of her life, although she says she has slowed down. MEDICATIONS PRIOR TO ADMISSION: These were reviewed and are listed on home medications section of the chart. REVIEW OF SYSTEMS: Twelve point review of systems otherwise negative. PHYSICAL EXAMINATION: VITAL SIGNS: Pulse 91, respirations 24, O2 sat 96% on 2 liters, blood pressure 130/70. GENERAL: She is awake and in no distress. HEENT: Pupils react. Sclerae icteric. Oropharynx clear. NECK: Without adenopathy, JVD, or bruits. LUNGS: Clear anteriorly without wheezing. She has some crackles at the bases. CARDIOVASCULAR: S1, S2 regular. ABDOMEN: Soft and nontender. EXTREMITIES: Without clubbing, cyanosis, or edema. X-RAY FINDINGS: Her chest x-ray shows pulmonary vascular congestion and pulmonary edema. LABORATORY DATA: White blood count 7.9, hematocrit 43.2, platelet count 192. PH 7.31, pCO2 59, pO2 of 65 on 28% oxygen. Sodium 140, potassium 4.3, chloride 105, CO2 31, BUN 32, creatinine 1.3, glucose 199. BNP is 1324. ASSESSMENT: 1. Probable congestive heart failure - suspect diastolic cardiac dysfunction. 2. History of chronic obstructive pulmonary disease, which looks clinically compensated at this time. 3. Tobacco abuse. RECOMMENDATIONS: Agree with nebulization treatments, BiPAP as needed and diuresis. I would favor putting her on IV diuretics rather than oral diuretics. Her labs need to be rechecked tomorrow. Cardiology has been consulted by the Hospitalist group. I am going to switch her nebulization frequency to every 4 hours. We will follow with you. 70 min time was spent on this consult. Of that time, >50% was spent with the patient and/or on the patients unit. RITA
[2017-08-26] MEDS ORDERED: Furosemide 20 MG TAB PO SCH (14:00)
--- NOTE | 2017-08-26 14:15 | CT ---
CT BRAIN WITHOUT CONTRAST: History: New onset weakness, recent fall. FINDINGS: Comparison is made with exam of 01-04-15. No evidence of acute infarct, hemorrhage, midline shift, or abnormal extraaxial fluid collections are seen. Ventricular size is appropriate and the basilar cisterns patent. The bony calvarium is intact. Post op changes of right mastoidectomy are again seen. Visualized paranasal sinuses are well aerated . IMPRESSION: No CT evidence of acute intracranial process. POS: [facility]
--- NOTE | 2017-08-26 14:24 | HP ---
PRESENTING COMPLAINT: Shortness of breath. HISTORY OF PRESENT ILLNESS: Ms. Matt Short is a 67-year-old female with a past medical history of COPD, chronic respiratory failure on 2 liters of home oxygen, hypertension, dyslipidemia, depression, carotid stenosis, and seizure disorder, who presented to the emergency room with shortness of breath. The patient reportedly ran out of her nebulizers and was getting progressively short of breath. She was saturating about 83% on 4 liters of oxygen and was brought to the emergency room and started on BiPAP. Her labs revealed normal WBC. Serum chemistry shows elevated BUN/creatinine of 32/1.27. Initial troponin was 0.012 and BNP was 1300. Her chest x-ray showed vascular congestion. A diagnosis of possible new onset heart failure was made. The patient was started on IV furosemide 40 mg intravenously and admitted for further care. The history was limited due to patient being lethargic. PAST MEDICAL HISTORY: Chronic obstructive pulmonary disease, chronic respiratory failure on home oxygen, type 2 diabetes mellitus, hypertension, dyslipidemia, anxiety, bipolar disorder, history of carotid stenosis, history of seizure disorder. PAST SURGICAL HISTORY: Hysterectomy, tubal ligation, trigger finger surgery, history of ear surgery. ALLERGIES: No known drug allergies. FAMILY HISTORY: Father had WI, CAD in her mother also at a young age. Sister is a type 2 diabetic as well. SOCIAL HISTORY: Chronic smoker, smokes at least 2 packs a day. Denies alcohol or illicit drug use. HOME MEDICATIONS: Amlodipine 10 mg daily, budesonide-formoterol 1 puff inhaled b.i.d., carvedilol 6.25 mg b.i.d., clonidine 0.2 mg b.i.d., fenofibrate 48 mg daily, gabapentin 300 mg t.i.d., glimepiride 4 mg b.i.d., hydralazine 250 mg b.i.d., hydrocodone/acetaminophen 10/325 one tab q.8 hours p.r.n., insulin detemir 100 units subcutaneously b.i.d., insulin lispro 10 units subcu t.i.d., albuterol, ipratropium 1 spray inhaled t.i.d., Levofloxacin 750 mg daily, losartan 100 mg daily, metformin 1000 mg b.i.d., mirtazapine 15 mg at bedtime, Dulera two puffs inhaled b.i.d., prednisone 10 mg q.a.m., sertraline 100 mg daily, simvastatin 10 mg at bedtime, sitagliptin 100 mg daily, trazodone 100 mg at bedtime. (Past medical history and other information obtained from chart review). REVIEW OF SYSTEMS: Unable to obtain due to patient being lethargic. PHYSICAL EXAMINATION: VITAL SIGNS: Stable. GENERAL: Not in acute distress, but lethargic. BiPAP in place, able to follow commands. HEENT: Normocephalic, atraumatic. Not pale, anicteric. Moist mucous membranes , PERRLA, EOMI. NECK: No JVD, exam limited due to neck habitus. RESPIRATORY: Mild wheezes in bilateral lung ratliff which reduced air entry bilaterally. CARDIOVASCULAR: S1 and S2 only. Regular rate and rhythm. No murmurs, rubs, or gallops. ABDOMEN: Obese, nontender, nondistended. Bowel sounds normoactive. No hepatosplenomegaly. NEUROLOGIC: Lethargic, oriented to person and place, unable to fully cooperate to exam due to lethargy. SKIN: Warm, dry, well perfused. No edema. MUSCULOSKELETAL: Moves all extremities spontaneously. No edema. PSYCHIATRIC: Unable to cooperate. LABORATORY DATA: CBC unremarkable. CMP with glucose of 199 and BUN/creatinine of 32/1.27 respectively. Initial troponin 0.012. BNP about 1300. IMAGING: Chest x-ray showed pulmonary vascular congestion. EKG: No signs of acute ischemia. ASSESSMENT AND PLAN: 1. Acute on chronic hypoxic respiratory failure. This could be likely due to new onset congestive heart disease with COPD compliments. ABG showed a pH of 7.31, pCO2 of 59 and pO2 of 64. She will be started on nebulizer therapy, IV furosemide 20 mg b.i.d aspatient is Lasix naive. We will also monitor on telemetry/IMCU, weigh daily and monitor intake and outputs. We will also pursue an echocardiogram. Obtain TSH and echocardiogram as there is none in the system. 2. Type 2 diabetes mellitus. She is likely hyperglycemic. We will place on diabetic diet, fingerstick glucose before meals and at bedtime, sliding scale insulin and hypoglycemia protocol. We will reintroduce home insulin regimen when confound. 3. Acute kidney injury. She likely has some cardiorenal syndrome, this should improve with diuresis. We will monitor renal function closely. 4. Hypertension, stable. We will reintroduce home medications once confirmed. 5. Dyslipidemia. We will continue on statins. 6. Other medical condition will be taken care during this admission includes depression, anxiety disorder, bipolar disorder for which we will continue her home medications. Code status: The patient is lethargic and so for now she was going to remain FULL CODE. Once she is more alert and oriented, we will address her code status. RITA
[2017-08-26 14:54] VITALS: BMI 36.1
[2017-08-26] MEDS: HumaLOG 300 UNITS/3 ML VIAL SC PRN ×2 (17:14→22:00)
[2017-08-26] MEDS ORDERED: Furosemide 20 MG/2 ML VIAL SLOW IVP SCH (20:00)
[2017-08-26] MEDS: Furosemide 40 MG/4 ML VIAL SLOW IVP SCH (21:58)
--- NOTE | 2017-08-27 01:20 | CON ---
DATE OF CONSULTATION: 08/26/2017 REASON FOR CONSULTATION: Diastolic congestive heart failure. HISTORY OF PRESENT ILLNESS: Deja Gutierrez is a 67-year-old woman. The patient presented to the [facility] apparently early this morning with severe trouble breathing. She does not have chest pain or pressure. Chest x-ray showed congestive heart failure. She had a markedly increased BNP. She is saturating on ly 83% on 4 liters of oxygen. She was given BiPAP. Chest x-ray showed pulmonary congestion. She wa s given Lasix with some improvement. She is lethargic; however, and hypercapnic. She is feeling bet ter now. PAST MEDICAL HISTORY: 1. COPD. 2. History of hypertension. 3. Chronic respiratory failure on oxygen. 4. Bipolar disorder. 5. History of carotid stenosis. 6. Previous normal cardiac catheterization many years ago. PAST SURGICAL HISTORY: 1. Hysterectomy. 2. Tubal ligation. ALLERGIES: None known. FAMILY HISTORY: Father had myocardial infarction. Coronary artery disease in her mother. Sister james d type 2 diabetes. SOCIAL HISTORY: Chronic smoker, 2 packs per day. No alcohol. MEDICATIONS: 1. Amlodipine 10 mg a day. 2. Carvedilol 6.25 mg twice a day. 3. Clonidine 0.2 mg twice daily. 4. Gabapentin. 5. Hydralazine. 6. Insulin. 7. Albuterol. 8. Losartan. 9. Sertraline. 10. Prednisone. REVIEW OF SYSTEMS: The patient was lethargic earlier, still somewhat fatigued and cannot really give her accurate review of systems. PHYSICAL EXAMINATION: GENERAL: This is a pleasant elderly woman in no distress. VITAL SIGNS: Blood pressure 130/50, pulse 90, it is sinus on the monitor. HEENT: Eyes, sclerae nonicteric. Mouth, mucous membranes moist. NECK: Supple, no lymphadenopathy. LUNGS: Clear anteriorly. Posteriorly, she still has some rales. CARDIAC: Normal S1, normal S2. ABDOMEN: Soft, nontender. EXTREMITIES: No clubbing or cyanosis. There is mild edema. SKIN: Warm and dry. PERTINENT LABORATORY AND X-RAY FINDINGS: Earlier pH 7.31, pCO2 of 59, pO2 of 64. Echocardiogram mary ann wed ejection fraction 65-70% with diastolic dysfunction. ASSESSMENT: 1. Congestive heart failure, diastolic, acute on probably chronic. 2. History of normal coronary arteries, had catheterization many years ago that was done in 2003. 3. Normal stress test 2013, no acute changes in EKG. 4. Hypertension. PLAN: 1. Continue carvedilol. 2. Continue intravenous diuretics. 3. Continue angiotensin receptor blockers. I would be glad to follow with you.
[2017-08-27 05:13] LABS: Anion Gap 10 mmol/L (10-20); BUN (Urea Nitrogen) 37 mg/dL (9.8-20.1); Calc. Creatinine Clearance 61 mL/min (70-130); Calcium 9.6 mg/dL (7.8-10.44); Carbon Dioxide 31 mmol/L (23-31); Chloride 106 mmol/L (98-107); Estimated GFR-MDRD 48; Glucose 141 mg/dL (80-115); Potassium 4.3 mmol/L (3.5-5.1); Sodium 143 mmol/L (136-145)
--- NOTE | 2017-08-27 07:48 | PRG ---
DATE OF SERVICE: 08/27/2017 The patient is awake. She is alert, but somewhat slow to respond to questions. She did not require BiPAP last night. PHYSICAL EXAMINATION: VITAL SIGNS: Temperature is 98.8, pulse 80, blood pressure 102/48, O2 sat running between 88% and 98 % on nasal cannula, 24-hour intake and output not quantitated well. HEENT: Unremarkable except for poor dentition. NECK: No JVD. LUNGS: Clear. CARDIAC: S1 and S2 regular. ABDOMEN: Soft. EXTREMITIES: No edema. LABORATORY: Sodium 143, potassium 4.3, chloride 106, CO2 31, BUN 37, creatinine 1.4, glucose 141. ASSESSMENT: 1. Congestive heart failure - likely diastolic 2. Chronic obstructive pulmonary disease. 3. Tobacco abuse. PLAN: The patient can be transferred out to medical and continue current treatment with diuretics. She will continue nebulization therapy, increase activity as tolerated.
[2017-08-27] MEDS: Heparin 5,000 UNITS/ML VIAL SC SCH ×3 (08:24→20:49)
[2017-08-27] MEDS: Docusate 100 MG CAP PO SCH ×2 (08:24→20:49)
[2017-08-27] MEDS: Furosemide 40 MG/4 ML VIAL SLOW IVP SCH ×2 (08:24→20:49)
[2017-08-27] MEDS ORDERED: Prevnar 13-Val Conj/PF 0.5 ML SYRINGE IM ONE (09:00)
[2017-08-27] MEDS ORDERED: hydrALAZINE 10 MG TAB PO SCH (11:00)
[2017-08-27] MEDS ORDERED: hydrALAZINE 20 MG/ML VIAL SLOW IVP SCH (11:15)
--- NOTE | 2017-08-27 17:42 | PDOC.PN ---
- Subjective Encounter Start Date: 08/27/17 Encounter Start Time: 10:00 Pt seen for followup re: acute hypoxic respiratory failure. reports feeling better. Cough+, no sputum. SOBOE, orthopnea. - Objective MAR Reviewed: Yes Vital Signs & Weight: Vital Signs (12 hours) Temp Pulse Resp BP BP BP Pulse Ox 08/27/17 16:33 97.4 F L 98 18 153/73 H 90 L 08/27/17 14:25 105 H 20 95 08/27/17 12:26 92 L 08/27/17 11:30 105 H 156/71 H 156/71 H 08/27/17 11:24 98.3 F 105 H 18 158/76 H 91 L 08/27/17 10:37 92 22 H 98 08/27/17 10:20 98.1 F 105 H 16 90 L 08/27/17 09:58 98.1 F 109 H 16 178/75 H 90 L 08/27/17 08:00 98.8 F 94 24 H 92 L 08/27/17 07:49 96 20 98 Weight Weight 208 lb 5.389 oz Most Recent Monitor Data Heart Rate from ECG 94 NIBP 158/69 NIBP BP-Mean 88 Respiration from ECG 24 SpO2 92 I&O: 08/26/17 08/27/17 08/28/17 06:59 06:59 06:59 Intake Total 0 810 Output Total 2 Balance -2 810 Result Diagrams: 08/26/17 01:59 08/27/17 04:30 Additional Labs: Accuchecks 08/27/17 08/27/17 08/26/17 16:38 11:25 21:59 POC Glucose 147 H 142 H 208 H EKG Reviewed by me: Yes (Tele: NSR) Phys Exam - Physical Examination Obese HEENT: PERRLA, moist MMs, sclera anicteric, oral pharynx no lesions Neck: no nodes, supple, full ROM Unable to assess JVD Respiratory: no wheezing, no rhonchi Dariel crackles Cardiovascular: RRR, no rub Gastrointestinal: soft, non-tender, positive bowel sounds Neurological: moves all 4 limbs Psychiatric: normal affect Dx/Plan (1) Acute on chronic respiratory failure with hypoxemia Code(s): J96.21 - ACUTE AND CHRONIC RESPIRATORY FAILURE WITH HYPOXIA Status: Acute Comment: Likely due to CHF exacerbation (2) Diastolic heart failure Code(s): I50.30 - UNSPECIFIED DIASTOLIC (CONGESTIVE) HEART FAILURE Status: Acute Comment: Continue diuretics (3) MADHURI (acute kidney injury) Code(s): N17.9 - ACUTE KIDNEY FAILURE, UNSPECIFIED Status: Acute Comment: Hold ARB and metformin, recheck (4) COPD (chronic obstructive pulmonary disease) Status: Chronic Comment: continue oxygen and bronchodilators (5) HTN (hypertension) Code(s): I10 - ESSENTIAL (PRIMARY) HYPERTENSION Status: Chronic Comment: Monitor vital signs, titrate antihypertensives as needed (6) Diabetes mellitus Code(s): E11.9 - TYPE 2 DIABETES MELLITUS WITHOUT COMPLICATIONS Status: Chronic Qualifiers: Diabetes mellitus type: type 2 Comment: continue accuchecks, insulin (7) Tobacco abuse Code(s): Z72.0 - TOBACCO USE Status: Chronic Comment: counseled - Plan * . Review of Systems - Review of Systems Constitutional: negative: fever, chills, sweats, weakness, malaise Respiratory: Cough, Dry, Shortness of Breath, SOB with Excertion Cardiovascular: negative: chest pain, palpitations, orthopnea, paroxysmal nocturnal dyspnea, edema, light headedness Gastrointestinal: negative: Nausea, Vomiting, Abdominal Pain, Diarrhea, Constipation, Melena, Hematochezia Genitourinary: negative: Dysuria, Frequency, Incontinence, Hematuria, Retention Skin: negative: Rash, Lesions, Edgard, Bruising - Medications/Allergies Allergies/Adverse Reactions: Allergies Allergy/AdvReac Type Severity Reaction Status Date / Time No Known Allergies Allergy Verified 07/05/15 00:55 Medications: Current Medications Acetaminophen (Tylenol) 650 mg PO Q4H PRN PRN Reason: Headache/Fever or Pain Albuterol Sulfate (Ventolin) 2.5 mg NEB [id number] PRN PRN Reason: SOB &/or Wheezing Albuterol/Ipratropium (Duoneb) 3 ml NEB [id number] [facility] Last Admin: 08/27/17 14:25 Dose: 3 ml Dextrose/Water (Dextrose 50%) 25 gm SLOW IVP PRN PRN PRN Reason: Hypoglycemia Docusate Sodium (Colace) 100 mg PO BID [facility] Last Admin: 08/27/17 08:24 Dose: 100 mg Furosemide (Lasix) 40 mg SLOW IVP BID [facility] Last Admin: 08/27/17 08:24 Dose: 40 mg Glucagon (Glucagon) 1 mg IM PRN PRN PRN Reason: Hypoglycemia Heparin Sodium (Porcine) (Heparin) 5,000 units SC TID [facility] Last Admin: 08/27/17 15:38 Dose: 5,000 units Dextrose/Water (D5w) 1,000 mls @ 0 mls/hr IV .Q0M PRN; As Directed PRN Reason: Hypoglycemia Insulin Human Lispro (Humalog) 0 units SC .MILD SLIDING SCALE PRN PRN Reason: Mild Correctional Scale Last Admin: 08/26/17 22:00 Dose: 3 unit Lactulose (Lactulose) 20 gm PO DAILYPRN PRN PRN Reason: Constipation Magnesium Hydroxide (Milk Of Magnesium) 30 ml PO DAILYPRN PRN PRN Reason: Constipation
[2017-08-27] MEDS: Mometasone/Formoterol 120 PUFF INHALER INH SCH (19:02)
[2017-08-27] MEDS: PRE FILLED SC SCH (20:44)
[2017-08-27] MEDS: INSULIN DETEMIR SC SCH (20:44)
[2017-08-27] MEDS: Nicotine 21 MG PATCH TOP SCH (20:46)
[2017-08-27] MEDS: Carvedilol 6.25 MG TAB PO SCH (20:48)
[2017-08-27] MEDS: cloNIDine 0.2 MG TAB PO SCH (20:48)
[2017-08-27] MEDS: Glimepiride 4 MG TAB PO SCH (20:49)
[2017-08-27] MEDS: Simvastatin 20 MG TAB PO SCH (20:50)
[2017-08-27] MEDS: hydrALAZINE 25 MG TAB PO SCH (20:50)
[2017-08-27] MEDS: Mirtazapine 15 MG TAB PO SCH (20:50)
[2017-08-27] MEDS ORDERED: INSULIN DETEMIR 100 UNIT SC SCH (21:00)
[2017-08-27] MEDS ORDERED: Non-Formulary Item 1 EACH (Budesonide-Formoterol [Symbicort 160-4.5] 1 PUFF) INH SCH (21:00)
[2017-08-28] MEDS: Mometasone/Formoterol 120 PUFF INHALER INH SCH ×2 (07:33→19:44)
[2017-08-28 07:54] LABS: BUN (Urea Nitrogen) 20 mg/dL (9.8-20.1); Calc. Creatinine Clearance 110 mL/min (70-130); Calcium 9.6 mg/dL (7.8-10.44); Estimated GFR-MDRD Greater than 90; Glucose 94 mg/dL (80-115)
[2017-08-28 07:55] LABS: #Eosinphils 0.1 thou/uL (0.0-0.7); #Lymphocytes 1.2 thou/uL (1.20-3.40); #Monocytes 0.6 thou/uL (0.11-0.59); #Neutrophils 6.2 thou/uL (1.40-6.50); %Basophils 0.2 % (0.0-1.0); %Monocytes 7.2 % (0.0-10.0); %Neutrophils 76.7 % (42.0-75.0); Anion Gap 18 mmol/L (10-20); Carbon Dioxide 34 mmol/L (23-31); Chloride 96 mmol/L (98-107); Hemoglobin 12.7 g/dL (12.0-16.0); Mean Corpuscular HGB CONC 30.1 g/dL (32.0-36.0); Mean Corpuscular Hemoglobin 28.5 pg (27.0-31.0); Mean Corpuscular Volume 94.6 fl (81.0-99.0); Mean Platelet Volume 9.5 fL (7.4-10.4); Platelet Count 178 thou/uL (130-400); Potassium 3.5 mmol/L (3.5-5.1); RBC Distribution Width 16.4 % (11.5-14.5); Red Blood Cell (RBC) Count 4.47 mill/uL (4.20-5.40); Sodium 144 mmol/L (136-145)
[2017-08-28] MEDS ORDERED: Non-Formulary Item 1 EACH (Metformin Hcl [Metformin Hcl] 1,000 MG) PO SCH (08:00)
[2017-08-28] MEDS: Heparin 5,000 UNITS/ML VIAL SC SCH ×3 (08:48→20:49)
[2017-08-28] MEDS: HumaLOG 300 UNITS/3 ML VIAL SC SCH ×3 (08:50→16:51)
[2017-08-28] MEDS: Amlodipine 10 MG TAB PO SCH (08:51)
[2017-08-28] MEDS: Alogliptin 25 MG TAB PO SCH (08:51)
[2017-08-28] MEDS: Glimepiride 4 MG TAB PO SCH ×2 (08:52→20:48)
[2017-08-28] MEDS: Docusate 100 MG CAP PO SCH ×2 (08:52→20:48)
[2017-08-28] MEDS: Carvedilol 6.25 MG TAB PO SCH ×2 (08:52→20:47)
[2017-08-28] MEDS: cloNIDine 0.2 MG TAB PO SCH ×2 (08:52→20:47)
[2017-08-28] MEDS: Furosemide 40 MG/4 ML VIAL SLOW IVP SCH ×2 (08:52→20:48)
[2017-08-28] MEDS: hydrALAZINE 25 MG TAB PO SCH ×2 (08:53→20:49)
[2017-08-28] MEDS: INSULIN DETEMIR SC SCH ×2 (08:53→20:50)
[2017-08-28] MEDS: PRE FILLED SC SCH ×2 (08:53→20:50)
[2017-08-28] MEDS ORDERED: Non-Formulary Item 1 EACH (Losartan Potassium [Losartan Potassium] 100 MG) PO SCH (09:00)
--- NOTE | 2017-08-28 10:26 | PRG ---
DATE OF SERVICE: 08/28/2017 SUBJECTIVE: Patient is doing better. She had no acute complaints. PHYSICAL EXAMINATION: VITAL SIGNS: On exam, temperature 99.4, pulse 98, respirations 20, O2 100% on 3 liters, blood pressu re 163/68. HEENT: Unremarkable. NECK: No JVD. LUNGS: A few end-expiratory wheezes. CARDIAC: S1 and S2, regular. ABDOMEN: Soft. EXTREMITIES: No edema. LABORATORY DATA: White blood cell count 8, hematocrit 42.2, platelet count 178. Sodium 144, potassi um 3.5, chloride 96, CO2 of 34, BUN 20, creatinine 0.7, glucose 94. ASSESSMENT: 1. Diastolic heart failure. 2. Chronic obstructive pulmonary disease. 2. Tobacco abuse. PLAN: She is likely near her baseline. The main issue now is rehabilitative in nature. She is cont inuing her nebulization treatments and Dulera diuretic management per Internal Medicine and Cardiolog y.
--- NOTE | 2017-08-28 10:46 | PDOC.PN ---
- Subjective Encounter Start Date: 08/28/17 Encounter Start Time: 08:00 Pt seen for followup re: acute on chronic respiratory failure. Feels better. No nausea or vomiting. - Objective MAR Reviewed: Yes Vital Signs & Weight: Vital Signs (12 hours) Temp Pulse Resp BP BP Pulse Ox 08/28/17 08:53 98 163/68 H 08/28/17 08:52 163/68 H 08/28/17 08:51 109 H 163/68 H 08/28/17 08:09 99.4 F 98 20 163/68 H 100 08/28/17 07:52 99.4 F 100 16 163/68 H 100 08/28/17 07:50 99.4 F 98 24 H 100 08/28/17 07:32 109 H 24 H 90 L 08/27/17 22:46 111 H 16 92 L Weight Weight 194 lb Most Recent Monitor Data Heart Rate from ECG 94 NIBP 158/69 NIBP BP-Mean 88 Respiration from ECG 24 SpO2 92 I&O: 08/27/17 08/28/17 08/29/17 06:59 06:59 06:59 Intake Total 0 925 Output Total 2 Balance -2 925 Result Diagrams: 08/28/17 05:20 08/28/17 05:20 Additional Labs: Accuchecks 08/28/17 08/27/17 08/27/17 04:56 20:10 16:38 POC Glucose 104 148 H 147 H 08/27/17 11:25 POC Glucose 142 H Phys Exam - Physical Examination Obese HEENT: PERRLA, moist MMs, sclera anicteric, oral pharynx no lesions Neck: no nodes, no JVD, supple, full ROM Respiratory: no wheezing, no rhonchi Bilbasal crackles Cardiovascular: RRR, no rub distention Gastrointestinal: soft, non-tender, positive bowel sounds Musculoskeletal: edema present Neurological: moves all 4 limbs Psychiatric: normal affect Dx/Plan (1) Acute on chronic respiratory failure with hypoxemia Code(s): J96.21 - ACUTE AND CHRONIC RESPIRATORY FAILURE WITH HYPOXIA Status: Acute Comment: Secondary to CHF exacerbation (2) Diastolic heart failure Code(s): I50.30 - UNSPECIFIED DIASTOLIC (CONGESTIVE) HEART FAILURE Status: Acute Comment: Continue diuretics (3) COPD (chronic obstructive pulmonary disease) Status: Chronic Comment: Improving, continue oxygen and bronchodilators (4) HTN (hypertension) Code(s): I10 - ESSENTIAL (PRIMARY) HYPERTENSION Status: Chronic Comment: Resume ARB, titrate antihypertensives as needed (5) Diabetes mellitus Code(s): E11.9 - TYPE 2 DIABETES MELLITUS WITHOUT COMPLICATIONS Status: Chronic Qualifiers: Diabetes mellitus type: type 2 Comment: Resume metformin, continue accuchecks, insulin (6) Tobacco abuse Code(s): Z72.0 - TOBACCO USE Status: Chronic Comment: started nicotine replacement therapy (7) MADHURI (acute kidney injury) Code(s): N17.9 - ACUTE KIDNEY FAILURE, UNSPECIFIED Status: Resolved Comment : Resume ARB and metformin - Plan PT/OT, out of bed/ambulate * . Pt needs to mobilize. Change to oral diuretics tomorrow. Review of Systems - Review of Systems Constitutional: other. negative: fever, chills, sweats, weakness, malaise Respiratory: Shortness of Breath, SOB with Excertion, Sputum. negative: Cough, Hemoptysis, Pleuritic Pain, Wheezing Cardiovascular: negative: chest pain, palpitations, orthopnea, paroxysmal nocturnal dyspnea, edema, light headedness Gastrointestinal: negative: Nausea, Vomiting, Abdominal Pain, Diarrhea, Constipation, Melena, Hematochezia Skin: negative: Rash, Lesions, Edgard, Bruising - Medications/Allergies Allergies/Adverse Reactions: Allergies Allergy/AdvReac Type Severity Reaction Status Date / Time No Known Allergies Allergy Verified 07/05/15 00:55 Medications: Current Medications Acetaminophen (Tylenol) 650 mg PO Q4H PRN PRN Reason: Headache/Fever or Pain Albuterol Sulfate (Ventolin) 2.5 mg NEB [id number] PRN PRN Reason: SOB &/or Wheezing Albuterol/Ipratropium (Duoneb) 3 ml NEB TID-RT [facility] Last Admin: 08/28/17 07:32 Dose: 3 ml Alogliptin Benzoate (Alogliptin) 25 mg PO DAILY [facility] Last Admin: 08/28/17 08:51 Dose: 25 mg Amlodipine Besylate (Norvasc) 10 mg PO DAILY [facility] Last Admin: 08/28/17 08:51 Dose: 10 mg Carvedilol (Coreg) 6.25 mg PO BID [facility] Last Admin: 08/28/17 08:52 Dose: 6.25 mg Clonidine (Catapres) 0.2 mg PO BID [facility] Last Admin: 08/28/17 08:52 Dose: 0.2 mg Dextrose/Water (Dextrose 50%) 25 gm SLOW IVP PRN PRN PRN Reason: Hypoglycemia Docusate Sodium (Colace) 100 mg PO BID [facility] Last Admin: 08/28/17 08:52 Dose: 100 mg Furosemide (Lasix) 40 mg SLOW IVP BID [facility] Last Admin: 08/28/17 08:52 Dose: 40 mg Glimepiride (Amaryl) 4 mg PO BID [facility] Last Admin: 08/28/17 08:52 Dose: 4 mg Glucagon (Glucagon) 1 mg IM PRN PRN PRN Reason: Hypoglycemia Heparin Sodium (Porcine) (Heparin) 5,000 units SC TID [facility] Last Admin: 08/28/17 08:48 Dose: 5,000 units Hydralazine HCl (Apresoline) 50 mg PO BID [facility] Last Admin: 08/28/17 08:53 Dose: 50 mg Dextrose/Water (D5w) 1,000 mls @ 0 mls/hr IV .Q0M PRN; As Directed PRN Reason: Hypoglycemia Insulin Detemir 100 units/ (Miscellaneous Medication) 1 mls @ 0 mls/hr SC BID [facility] Last Admin: 08/28/17 08:53 Dose: Not Given Insulin Human Lispro (Humalog) 0 units SC .MILD SLIDING SCALE PRN PRN Reason: Mild Correctional Scale Last Admin: 08/26/17 22:00 Dose: 3 unit Insulin Human Lispro (Humalog) 10 units SC T[facility] Last Admin: 08/28/17 08:50 Dose: Not Given Lactulose (Lactulose) 20 gm PO DAILYPRN PRN PRN Reason: Constipation Magnesium Hydroxide (Milk Of Magnesium) 30 ml PO DAILYPRN PRN PRN Reason: Constipation Mirtazapine (Remeron) 15 mg PO HS [facility] Last Admin: 08/27/17 20:50 Dose: 15 mg Mometasone Furoate/Formoterol Fumar (Dulera 200 Mcg/5 Mcg Inhaler) 2 puff INH BID-RT [facility] Last Admin: 08/28/17 07:33 Dose: 2 puff Nicotine (Nicoderm Patch) 21 mg TOP Q24HR [facility] Last Admin: 08/27/17 20:46 Dose: 21 mg Sertraline HCl (Zoloft) 100 mg PO DAILY [facility] Last Admin: 08/28/17 08:54 Dose: 100 mg Simvastatin (Zocor) 10 mg PO HS [facility] Last Admin: 08/27/17 20:50 Dose: 10 mg
[2017-08-28] MEDS: metFORMIN 500 MG TAB PO SCH (16:50)
[2017-08-28] MEDS: Nicotine 21 MG PATCH TOP SCH (20:47)
[2017-08-28] MEDS: Mirtazapine 15 MG TAB PO SCH (20:48)
[2017-08-28] MEDS: Simvastatin 20 MG TAB PO SCH (20:49)
[2017-08-29] MEDS: Mometasone/Formoterol 120 PUFF INHALER INH SCH (06:42)
[2017-08-29] MEDS: metFORMIN 500 MG TAB PO SCH (08:41)
[2017-08-29] MEDS: HumaLOG 300 UNITS/3 ML VIAL SC SCH (08:41)
[2017-08-29] MEDS: Alogliptin 25 MG TAB PO SCH (08:42)
[2017-08-29] MEDS: Amlodipine 10 MG TAB PO SCH (08:42)
[2017-08-29] MEDS: Docusate 100 MG CAP PO SCH (08:43)
[2017-08-29] MEDS: cloNIDine 0.2 MG TAB PO SCH (08:43)
[2017-08-29] MEDS: Carvedilol 6.25 MG TAB PO SCH (08:43)
[2017-08-29] MEDS: Heparin 5,000 UNITS/ML VIAL SC SCH (08:44)
[2017-08-29] MEDS: Glimepiride 4 MG TAB PO SCH (08:44)
[2017-08-29] MEDS: hydrALAZINE 25 MG TAB PO SCH (08:45)
[2017-08-29] MEDS: INSULIN DETEMIR SC SCH (08:45)
[2017-08-29] MEDS: PRE FILLED SC SCH (08:45)
--- NOTE | 2017-08-29 08:52 | PRG ---
DATE OF SERVICE: 08/29/2017 SUBJECTIVE: The patient is doing well, no acute complaints. PHYSICAL EXAMINATION: VITAL SIGNS: Temperature is 99.3, pulse 88, respiration 16, O2 sat 94% on 3 liters. HEENT: Unremarkable. NECK: No JVD. CHEST: Clear. CARDIAC: S1 and S2 regular. ABDOMEN: Soft. EXTREMITIES: No edema. ASSESSMENT: 1. Diastolic heart failure. 2. Chronic obstructive pulmonary disease. PLAN: Appears to be near baseline and is probably stable for discharge. No acute pulmonary needs id entified at this time. Dr. Valladares is available this weekend if help needed.
[2017-08-29] MEDS ORDERED: Losartan 25 MG TAB PO SCH (09:00)
[2017-08-29] MEDS ORDERED: Furosemide 40 MG TAB PO SCH (09:00)
[2017-08-29 12:28] VITALS: BP 117/57; TEMP 98.6
--- NOTE | 2017-08-30 11:38 | DIS ---
DATE OF ADMISSION: 08/26/2017 DATE OF DISCHARGE: 08/30/2017 DISCHARGE DISPOSITION: care home facility ([facility]). ALLERGIES: No known drug allergies. The patient was seen and examined on the day of discharge. Denies any new complaints. No chest pain , shortness of breath or palpitations. FOLLOWUP: 1. Follow up with Dr. Rajan in 2 weeks. 2. Follow up with Dr. Ventura in 1 week. DISCHARGE MEDICATIONS: 1. Lasix 20 mg b.i.d., per Dr. Rajan 2. DuoNeb as needed. 3. Tylenol as needed. 4. Amlodipine 10 mg daily. 5. Symbicort 160/4.5 b.i.d. 6. Carvedilol 6.25 b.i.d. 7. Clonidine 0.2 mg b.i.d. 8. Glimepiride 4 mg b.i.d. 9. Hydralazine 50 mg b.i.d. 10. Losartan 100 mg daily. 11. Metformin 1000 mg b.i.d. 12. Remeron 15 mg at bedtime. 13. Zoloft 100 mg daily. 14. Simvastatin 10 mg at bedtime. 15. Januvia 100 mg daily. 16. Trazodone 100 mg at bedtime. 17. Simvastatin 10 mg at bedtime. INPATIENT CONSULTANTS: Cardiology, Dr. Rajan and Pulmonary, Dr. Richey. BRIEF HOSPITAL COURSE: The patient is a 67-year-old female with COPD, chronic respiratory failure, o n home oxygen, presented to the hospital with shortness of breath. Please refer to the history and p hysical dated 08/26/2017 for further details. The patient was admitted to the hospital with a diagnosis of acute on chronic respiratory failure sec ondary to COPD and congestive heart failure exacerbation. ABGs on admission showed pH of 7.31 with p CO2 of 59.3, pO2 of 64.9 and bicarbonate of 29.1. She showed good improvement with diuretics. The p atient has been cleared for discharge by Cardiology and Pulmonary. Weight on discharge is 190 pounds compared to 203 pounds on admission. FINAL DIAGNOSES: 1. Acute hypoxic and hypercapnic respiratory failure secondary to acute on chronic diastolic heart f ailure exacerbation and chronic obstructive pulmonary disease exacerbation. 2. Chronic respiratory failure, on home oxygen. 3. Diabetes mellitus type 2. 4. Acute kidney injury, resolved. 5. Hypertension. 6. Diabetes mellitus type 2. 7. Tobacco dependence. 8. Obesity with a BMI of 33.7. SIGNIFICANT LABORATORIES: Troponins were normal. BNP was 1324. IMAGING DATA: 1. Echocardiogram showed left ventricular ejection fraction of 65% to 70% with diastolic dysfunction . Right ventricle was moderately enlarged. 2. Chest x-ray on admission showed pulmonary vascular congestion. 3. CT scan of the brain on admission was negative for acute findings. Total time coordinating the discharge of this patient was 38 minutes.
== END 2017-08-29 12:14 | DRG 291 ==
LOC: ERS 01:30 → ERHOLD 05:24 → CCU 12:53 → T4-B 08-27 09:53
PROVIDERS: ADMIT Internal Medicine; ATTEND Internal Medicine
PROC: 5A09357 Assistance with Respiratory Ventilation, Less than 24 Consecutive Hours, Continuous Positive Airway Pressure (ICD-10-PCS; principal; 2017-08-26)
DX: I11.0 Hypertensive heart disease with heart failure (principal); J96.21 Acute and chronic respiratory failure with hypoxia; N17.9 Acute kidney failure, unspecified; J44.1 Chronic obstructive pulmonary disease with (acute) exacerbation; Z99.81 Dependence on supplemental oxygen; I50.33 Acute on chronic diastolic (congestive) heart failure; E78.5 Hyperlipidemia, unspecified; F32.9 Major depressive disorder, single episode, unspecified; G40.909 Epilepsy, unspecified, not intractable, without status epilepticus; F41.9 Anxiety disorder, unspecified; F31.9 Bipolar disorder, unspecified; F17.210 Nicotine dependence, cigarettes, uncomplicated; E11.65 Type 2 diabetes mellitus with hyperglycemia; E66.9 Obesity, unspecified; Z68.37 Body mass index [BMI] 37.0-37.9, adult
CPT/HCPCS: 36415; 36416; 70450; 71045; 80048; 80053; 82553; 82805; 83880; 84443; 84484; 85025; 93005; 93306; 94640; 94660; 96374; 96375; 99406; G8978-GP-CM; G8979-GP-CK; G8987-GO-CJ; G8988-GO-CI; J0360; J1644; J1815; J1940; J7620

== ENCOUNTER 2017-09-18 12:22 | Inpatient (IN) | payer MEDICARE, MEDICAID ==
[2017-09-18 13:24] LABS: #Eosinphils 0.1 thou/uL (0.0-0.7); #Lymphocytes 1.8 thou/uL (1.20-3.40); #Monocytes 0.6 thou/uL (0.11-0.59); #Neutrophils 6.4 thou/uL (1.40-6.50); %Basophils 0.2 % (0.0-1.0); %Eosinophils 1.1 % (0.0-10.0); %Lymphocytes 20.6 % (21.0-51.0); %Monocytes 6.2 % (0.0-10.0); %Neutrophils 71.8 % (42.0-75.0); Hemoglobin 10.6 g/dL (12.0-16.0); Mean Corpuscular HGB CONC 30.5 g/dL (32.0-36.0); Mean Corpuscular Hemoglobin 28.5 pg (27.0-31.0); Mean Corpuscular Volume 93.3 fl (81.0-99.0); Mean Platelet Volume 9.2 fL (7.4-10.4); Platelet Count 205 thou/uL (130-400); RBC Distribution Width 14.7 % (11.5-14.5); Red Blood Cell (RBC) Count 3.71 mill/uL (4.20-5.40); White Blood Cell (WBC) Count 8.9 thou/uL (4.8-10.8)
--- NOTE | 2017-09-18 13:38 | RAD ---
FRONTAL VIEW CHEST: Date: 09/18/17 COMPARISON: 08/26/17. INDICATION: Dyspnea. Shortness of breath. FINDINGS: There is enlargement of the cardiac silhouette with prominence of the pulmonary vasculature. Hazy den sity of the inferior right hemithorax. Prior left basilar opacity has decreased. IMPRESSION: Evidence of CHF. Superimposed pleural fluid and/or pneumonia present at the right lower lung zone. Re commend continued follow-up. POS: [facility]
[2017-09-18 13:44] LABS: ALT (SGPT) 11 U/L (8-55); AST (SGOT) 28 U/L (5-34); Albumin 3.5 g/dL (3.4-4.8); Alkaline Phosphatase 55 U/L (40-150); Anion Gap 9 mmol/L (10-20); BUN (Urea Nitrogen) 25 mg/dL (9.8-20.1); Bilirubin, Total 0.6 mg/dL (0.2-1.2); Calc. Creatinine Clearance 0 mL/min (70-130); Calcium 9.1 mg/dL (7.8-10.44); Carbon Dioxide 34 mmol/L (23-31); Chloride 100 mmol/L (98-107); Estimated GFR-MDRD 43; Globulin 3.9 g/dL (2.4-3.5); Glucose 67 mg/dL (80-115); Potassium 3.9 mmol/L (3.5-5.1); Protein, Total 7.4 g/dL (6.0-8.3); Sodium 139 mmol/L (136-145)
[2017-09-18 13:48] LABS: Troponin I 0.086 ng/mL (< 0.028)
[2017-09-18] MEDS ORDERED: Furosemide 40 MG/4 ML VIAL ONE (18:18)
[2017-09-18] MEDS ORDERED: Enoxaparin Sodium 100 MG/ML SYRINGE ONE (18:18)
[2017-09-18 18:21] LABS: Troponin I 0.099 ng/mL (< 0.028)
[2017-09-18] MEDS ORDERED: Piperacillin/Tazobactam 4.5 GM in Sodium Chloride 0.9% 100 ML IVPB SCH (18:30)
[2017-09-18] MEDS ORDERED: Insulin Regular 300 UNITS/3 ML VIAL SC PRN (19:35)
[2017-09-18] MEDS ORDERED: Dextrose 5% in Water 1,000 ML IV PRN (19:35)
[2017-09-18] MEDS ORDERED: Dextrose 50% Abboject 50 ML SYRINGE IVP PRN (19:35)
[2017-09-18 20:35] LABS: Troponin I 0.104 ng/mL (< 0.028)
[2017-09-18] MEDS: Piperacillin/Tazobactam 3.375 GM in Sodium Chloride 0.9% 100 ML IVPB SCH (20:41)
[2017-09-18 21:16] VITALS: BMI 33.3
[2017-09-19 01:53] LABS: Troponin I 0.116 ng/mL (< 0.028)
[2017-09-19] MEDS: Piperacillin/Tazobactam 3.375 GM in Sodium Chloride 0.9% 100 ML IVPB SCH ×4 (02:46→20:51)
--- NOTE | 2017-09-19 04:20 | HP ---
DATE OF ADMISSION: 09/18/2017 CHIEF COMPLAINT: Shortness of breath. HISTORY OF PRESENT ILLNESS: Ms. Gutierrez is a 67-year-old, -[place] female with a past med ical history of hypertension, diabetes, diastolic heart failure, end-stage COPD, was found unresponsi ve at the snf according to the nurse there. The patient actually was being discharged from the snf today to home, but after lunch time, she was found to be not responding at all, so t he EMS was called. When they came, the patient was awake and complained of shortness of breath. The patient was in rehab today in which the shortness of breath started there and got worse after that. The patient was hypoxic with O2 saturation of 70% on room air. The patient received Solu-Medrol and DuoNebs on the way to the hospital. In the ER, the patient was found to have an acute CHF with hypo jamila with O2 saturation of 88% on 5 liters. BNP was 1184. The patient was suspected to have pneumoni a as well. She received a dose of Zosyn and vancomycin. She was on Lasix one dose and DuoNebs as we ll and Solu-Medrol as well. The patient is being admitted for further evaluation and management. Th e patient was recently in the hospital for respiratory failure due to CHF and COPD, and she was disch arged on 08/29/2017. PAST MEDICAL HISTORY: 1. Diabetes mellitus. 2. Hypertension. 3. Diastolic heart failure. 4. COPD, end stage. 5. Chronic respiratory failure, on oxygen. 6. Hyperlipidemia. 7. Bipolar disorder. 8. Anxiety disorder. 9. Seizure disorder. PAST SURGICAL HISTORY: 1. Total hysterectomy. 2. Status post ear surgery and status post trigger finger surgery. CURRENT MEDICATIONS: Patient is on Lasix 20 mg b.i.d., DuoNebs q.i.d., Tylenol p.r.n., amlodipine 10 mg daily, Symbicort inhaler 160/4.5 b.i.d. two puffs, Coreg 6.25 mg b.i.d., clonidine 0.2 mg b.i.d., glimepiride 4 mg b.i.d., hydralazine 50 mg b.i.d., losartan 100 mg daily, metformin 1000 mg b.i.d., Remeron 15 mg at bedtime, Zoloft 100 mg daily, simvastatin 10 mg daily, Januvia 100 mg daily, trazodo ne 100 mg at bedtime, and simvastatin 10 mg at bedtime. ALLERGIES: NKDA. FAMILY HISTORY: Nothing of interest. SOCIAL HISTORY: Patient lives in snf. No history of alcohol intake. Used to smoke 2 packs a day. Still continues to smoke and she is a chronic smoker. REVIEW OF SYSTEMS: Cardiovascular: No chest pain or shortness of breath. Respiratory: Has cough p roductive of white sputum. No fever. Gastrointestinal: No nausea or vomiting. No abdominal pain. Genitourinary: No dysuria or hematuria. Central Nervous System: No headache, no dizziness. PHYSICAL EXAMINATION: GENERAL: The patient is alert, awake, oriented x3. VITAL SIGNS: Temperature 98, pulse 82, respirations 20, blood pressure 100/60. HEENT: Head is normocephalic, atraumatic. Pupils equal and reactive to light. Nasopharynx is pale and dry. Hard and soft palate, no lesions seen. SKIN: Skin turgor decreased. NECK: Supple. No JVD. LUNGS: Breath sounds diminished bilaterally. Percussion not dull bilaterally. Rhonchi present. Ra les present in bases. HEART: S1, S2 regular. ABDOMEN: Soft, no distention, no tenderness. Normal bowel sounds. EXTREMITIES: No edema. CENTRAL NERVOUS SYSTEM: No focal deficit. LABORATORY AND X-RAY FINDINGS: CBC shows WBC 8.9, hemoglobin 10.6, hematocrit 34, platelets 205. Me tabolic panel: Sodium 139, potassium 3.9, chloride 100, CO2 of 34, BUN 25, creatinine 1.47, glucose 67. Chest x-ray shows pulmonary vascular congestion and questionable pneumonia in the right lower lo be. EKG shows normal sinus rhythm, no acute ST-T wave changes seen. ASSESSMENT: 1. Acute on chronic diastolic heart failure. 2. Chronic respiratory failure secondary to chronic obstructive pulmonary disease. 3. Syncope, rule out myocardial infarction. 4. Diabetes mellitus. 5. Tobacco abuse. 6. Hypertension. 7. Bipolar disorder. 8. Anxiety disorder. 9. Seizure disorder by history. PLAN: 1. Vital signs q.4 hours. 2. Activity as tolerated. 3. Hep-Lock. 4. Lasix 40 IVP q.12 hours. 5. DuoNeb 1 unit q.4 hours. 6. Solu-Medrol 20 IVP q.6 hours. 7. Continue snf medications. 8. Troponin I q.6 hours x2. 9. Cardiology consult. 10. Intake and output. 11. Oxygen by Ventimask 50% to keep O2 sats around 90%.
[2017-09-19] MEDS ORDERED: Furosemide 40 MG/4 ML VIAL SLOW IVP SCH (06:00)
[2017-09-19 07:22] LABS: Troponin I 0.118 ng/mL (< 0.028)
[2017-09-19 08:25] LABS: Actual Bicarbonate (HCO3a) 37.2 mEq/L (22-26); CO2 Tension 71.4 mmHg (35.0-45.0); O2 Tension (PaO2) 71.4 mmHg (80.0-100.0); pH, Arterial 7.34 (7.35-7.45)
[2017-09-19 08:26] LABS: Base Excess (BEa) 9.3 mEq/L (0 (+/-) 2.5); Hematocrit-ABG 38.4 % (36.0-47.0); Hemoglobin (Hb) 10.5 g/dL (12.0-16.0)
[2017-09-19 08:28] LABS: Calcium, Ionized 1.2 mmol/L (1.12-1.30); Puncture Site RR
[2017-09-19 08:56] LABS: Iron 39 ug/dL (50-170); Iron Binding Capacity, Total 260 mcg/dL (265-497)
[2017-09-19] MEDS: Enoxaparin Sodium 40 MG/0.4 ML SYRINGE SC SCH (09:15)
--- NOTE | 2017-09-19 11:05 | CON ---
DATE OF CONSULTATION: 09/19/2017 SERVICE: Pulmonary Medicine. REASON FOR CONSULTATION: Respiratory failure. HISTORY OF PRESENT ILLNESS: The patient is a 67-year-old -[place] female with past medical history significant for diabetes and COPD who presented to the hospital with acute shortness of breath. She is currently encephalopathic and not really able to provide much of the history. She lives in a nursing facility and was apparently found unresponsive there. EMS was called. By the time they got there, she was awake and alert. Her oxygen saturations were a little low. As such, she got some nebulized medications and steroids and was subsequently brought to the emergency department. She denies any shortness of breath, but she is a little lethargic. With some gentle stimulation, she will wake up for greater than 5 seconds, but then drifts off back to sleep without stimulation. She is moving all 4 extremities and moving both of her upper extremities and following commands. PAST MEDICAL HISTORY: 1. Chronic diastolic heart failure. 2. Hypertension. 3. Dyslipidemia. 4. Type 2 diabetes mellitus. 5. Chronic hypoxic respiratory failure. 6. Chronic obstructive pulmonary disease, end-stage. 7. Bipolar disorder. 8. Anxiety disorder. 9. Seizure disorder. PAST SURGICAL HISTORY: 1. Hysterectomy. 2. Ear surgery on the right. 3. Trigger finger surgery. FAMILY HISTORY: Noncontributory. SOCIAL HISTORY: She does not have any alcohol or illicit drug use. That being said, she smokes 2 packs on a daily basis and has a greater than [id number] history of smoking. ALLERGIES: No known drug allergies. MEDICATIONS: List of her inpatient medications were reviewed. Multiple small updates were made. REVIEW OF SYSTEMS: This cannot be obtained because the patient is encephalopathic. PHYSICAL EXAMINATION: VITAL SIGNS: Afebrile, pulse 68, blood pressure 121/60, respirations 17, saturation 94% on room air. GENERAL: The patient is awake and alert, no apparent distress. LUNGS: Excellent air entry. There is really not a prolonged expiratory phase, but I do not hear minimal wheezing present at the end of exhalation with more impressive of crackles. HEART: Normal rate, regular. ABDOMEN: Soft, nontender, nondistended. Bowel sounds are positive. MUSCULOSKELETAL: No cyanosis or clubbing. There is no pitting in the bilateral lower extremities, though she has 1-2+ pitting at the sacrum. GENITOURINARY: No Grant. NEUROLOGIC: Grossly nonfocal. LABORATORY DATA: WBC 8.9, hemoglobin 10.6, and platelets 205,000. A pH 7.34, pCO2 71, pO2 71.4. Glucose 297, iron 39, TIBC 260, and percent saturation 15. Troponin is gently up trending to 0.118. BNP 1184 which is similar to her prior presentation on 08/26/2017. Creatinine 1.47, significantly above baseline. Basic metabolic profile, however, is otherwise unremarkable. Bicarbonate is slightly above her baseline. Liver function studies are completely unremarkable. Ferritin level is greater than 200. IMAGING: Chest x-ray demonstrates volume overload with possible right lower lobe infiltrate versus layering effusion on the right. There is pulmonary vascular congestion present. Cardiac silhouette is generous. I do not see overt hyperexpansion that would be consistent with obstructive lung disease. ASSESSMENT: 1. Acute on chronic hypoxic respiratory failure. 2. Chronic hypercapnic respiratory failure. 3. Acute on chronic diastolic heart failure with volume overload. 4. Acute kidney injury. 5. Chronic obstructive pulmonary disease with acute exacerbation, possible. 6. Obstructive sleep apnea. 7. Moderate restrictive lung disease present in 2014. 8. Pulmonary hypertension, mild. 9. Obstructive sleep apnea, suspected. PLAN: I will deescalate the steroids. We will continue her nebulized medications and antibiotics. We will diurese the patient until she returns to euvolemia. She may benefit from an outpatient polysomnogram. Dr. Pizarro will cover this weekend, but Dr. Richey will assume care on Friday morning if the patient is still the hospital. I made multiple adjustments to her BiPAP at bedside in order to improve comfort. We have increased her PEEP, and dropped her pressure support at touch as we were slightly hyperventilating her. We will drop her oxygen as well and allow her to be anywhere between 86 and 90% saturation so long as she is comfortable. I am not certain why she has this metabolic encephalopathy, though the patient is clearly protecting her airway and does not have impending respiratory failure. As such, supportive care will be continued in the IMCU setting. Pulmonary or Critical Care will continue to follow along. Critical care time: 30 minutes. RITA
[2017-09-19] MEDS: HumaLOG 300 UNITS/3 ML VIAL SC PRN ×2 (11:31→17:25)
[2017-09-19] MEDS ORDERED: Acetaminophen 325 MG TAB PO PRN (20:53)
[2017-09-19] MEDS ORDERED: Mirtazapine 15 MG TAB PO SCH (21:00)
--- NOTE | 2017-09-19 21:03 | CON ---
DATE OF CONSULTATION: 09/19/2017 REASON FOR CONSULTATION: Recurrent diastolic congestive heart failure. HISTORY OF PRESENT ILLNESS: Ms. Gutierrez is a 67-year-old woman. The patient apparently is a resi dent of a long term in [place]. The patient informed me that she lives at home by herself, but the records indicate she lives in a long term. The patient was brought here for difficulty breathing . She has a history of diastolic heart failure. The patient received intravenous diuretics. She is also getting steroids and antibiotics and is feel ing better. She had no chest pain, only shortness of breath. She did require noninvasive mechanical support to help her ventilate yesterday. PAST MEDICAL HISTORY: 1. Hypertension. 2. Diastolic heart failure. 3. Diabetes. 4. Chronic obstructive pulmonary disease. 5. Bipolar disorder. 6. Anxiety disorder. 7. Seizure disorder. PAST SURGICAL HISTORY: Hysterectomy. FAMILY HISTORY: Noncontributory. SOCIAL HISTORY: Continues to smoke according to the records. ALLERGIES: None known. REVIEW OF SYSTEMS: Not reliable as she is still not thinking clearly, it is unclear what her baselin e mental status is. MEDICATIONS: In a long term included; 1. Furosemide 20 mg twice a day. 2. Losartan. 3. Simvastatin. 4. Amaryl. 5. Catapres. 6. Amlodipine. PHYSICAL EXAMINATION: GENERAL: This is a pleasant elderly woman, somewhat chronically ill appearing. Mental status as out lined above. She knows where she is and what year and month it is, but as mentioned, she thinks she lives at home, but the records indicate she lives in the long term. VITAL SIGNS: Her blood pressure 134/71 and pulse 70. HEENT: Eyes: Sclerae nonicteric. Mouth: Mucous membranes moist. NECK: Supple. No lymphadenopathy. LUNGS: Clear. No wheezing, rales, or rhonchi. CARDIAC: Normal S1, normal S2. There is no murmur, rub, or gallop. ABDOMEN: Soft, nontender. EXTREMITIES: No clubbing or cyanosis and there is no edema. Good posterior tibial pulses bilaterall y. LABORATORY DATA AND X-RAY FINDINGS: Troponin level 0.118, which is in the indeterminate range, proba florencia due to demand ischemia. Iron level of 39, but the ferritin level was in the normal range of 215. BNP 1184, markedly elevated similar to previous BNP last admission. EKG, sinus rhythm, no acute ch anges. ASSESSMENT: 1. Recurrent diastolic congestive heart failure. 2. History of hypertension. 3. Diabetes. 4. History of normal catheterization in 2003. 5. Negative stress test in 2013. PLAN: 1. Continue diuretic therapy. 2. May consider stress testing during this admission next week. 3. Increase diuretics when she relieves. Long-term prognosis is guarded. No family around now to discuss the case with.
[2017-09-19] MEDS: Simvastatin 5 MG TAB PO SCH (21:27)
[2017-09-19] MEDS: Docusate 100 MG CAP PO SCH (21:27)
[2017-09-19] MEDS: Carvedilol 6.25 MG TAB PO SCH (21:27)
[2017-09-19] MEDS: traZODone HCl 50 MG TAB PO SCH (21:27)
[2017-09-19] MEDS: hydrALAZINE 25 MG TAB PO SCH (21:28)
[2017-09-19] MEDS: cloNIDine 0.2 MG TAB PO SCH (21:28)
[2017-09-20] MEDS: Piperacillin/Tazobactam 3.375 GM in Sodium Chloride 0.9% 100 ML IVPB SCH ×4 (03:18→20:57)
[2017-09-20 04:32] LABS: Anion Gap 14 mmol/L (10-20); BUN (Urea Nitrogen) 38 mg/dL (9.8-20.1); Calc. Creatinine Clearance 57 mL/min (70-130); Calcium 9.2 mg/dL (7.8-10.44); Carbon Dioxide 34 mmol/L (23-31); Chloride 101 mmol/L (98-107); Estimated GFR-MDRD 52; Potassium 3.6 mmol/L (3.5-5.1); Sodium 145 mmol/L (136-145)
[2017-09-20 04:34] LABS: Glucose 53 mg/dL (80-115)
[2017-09-20] MEDS ORDERED: Furosemide 40 MG/4 ML VIAL SLOW IVP SCH (06:00)
[2017-09-20] MEDS ORDERED: Glimepiride 4 MG TAB PO SCH (07:30)
[2017-09-20] MEDS: metFORMIN 500 MG TAB PO SCH ×2 (09:33→18:31)
[2017-09-20] MEDS: predniSONE 20 MG TAB PO SCH (09:34)
[2017-09-20] MEDS: Docusate 100 MG CAP PO SCH ×3 (09:35→21:09)
[2017-09-20] MEDS: cloNIDine 0.2 MG TAB PO SCH ×2 (09:35→20:56)
[2017-09-20] MEDS: Carvedilol 6.25 MG TAB PO SCH ×2 (09:35→20:56)
[2017-09-20] MEDS: Amlodipine 10 MG TAB PO SCH (09:35)
[2017-09-20] MEDS: hydrALAZINE 25 MG TAB PO SCH ×2 (09:35→20:56)
[2017-09-20] MEDS: Enoxaparin Sodium 40 MG/0.4 ML SYRINGE SC SCH (09:35)
[2017-09-20] MEDS: Alogliptin 25 MG TAB PO SCH (09:35)
[2017-09-20] MEDS: Losartan 25 MG TAB PO SCH (09:36)
--- NOTE | 2017-09-20 11:32 | PDOC.CTH ---
Cardiology Progress Note - Subjective She is doing better. Breathing better. - Objective Vital Signs Temp Pulse Resp BP BP BP Pulse Ox 09/20/17 11:19 81 16 09/20/17 09:35 86 125/49 L 09/20/17 08:18 86 16 95 09/20/17 08:00 97.7 F 90 21 H 94 L 09/20/17 07:47 97.7 F 90 21 H 131/64 90 L 09/20/17 04:00 98.4 F 84 22 H 129/67 91 L 09/20/17 02:32 85 16 94 L 09/20/17 02:00 85 20 112/52 L 91 L 09/20/17 00:34 86 L Weight 179 lb 7 oz 09/19/17 09/20/17 09/21/17 06:59 06:59 06:59 Intake Total 100 800 Balance 100 800 - Physical Examination General/Neuro: alert & oriented x3, NAD Neck: no JVD present Lungs: unlabored respirations, other: (Crackles bilat bases.) Heart: RRR Abdomen: NT/ND Extremities: other: (no edema) - Telemetry Telemetry Rhythm: NSR - Labs Result Diagrams: 09/18/17 13:13 09/20/17 03:40 Troponin/CKMB CK-MB (CK-2) 2.0 ng/mL (0-6.6) 09/18/17 13:13 Troponin I 0.118 ng/mL (< 0.028) H 09/19/17 06:50 - Assessment/Plan 1. Acute on chronic diastolic heart failure 2. HTN PLAN: - Continue IV lasix, will increase to BID. - Continue other meds. BP well controlled.
--- NOTE | 2017-09-20 13:53 | PRG ---
DATE OF SERVICE: 09/20/2017 SUBJECTIVE: This morning, the patient is awake, responsive. Apparently, ate breakfast. She did not wear the BiPAP last night. OBJECTIVE: VITAL SIGNS: Sats are 94% on 3 liters , blood pressure 125/93, respiratory rate 18. CHEST: Decreased breath sounds without any wheezing. CARDIAC: Normal S1 and S2. No gallops. ABDOMEN: Soft, no masses. LABORATORY DATA: Creatinine 1.26, glucose 53. IMPRESSION: 1. Acute on chronic respiratory failure. 2. Renal failure. 3. Morbid obesity. 4. Congestive heart failure. 5. Chronic obstructive pulmonary disease. PLAN: Continue neb treatments. BiPAP as needed. Empiric antibiotics, steroids. We will follow.
[2017-09-20] MEDS: Furosemide 40 MG/4 ML VIAL SLOW IVP SCH (15:16)
[2017-09-20] MEDS: HumaLOG 300 UNITS/3 ML VIAL SC PRN (18:32)
[2017-09-20] MEDS: Simvastatin 5 MG TAB PO SCH (20:55)
[2017-09-20] MEDS: traZODone HCl 50 MG TAB PO SCH (20:56)
[2017-09-21] MEDS: Piperacillin/Tazobactam 3.375 GM in Sodium Chloride 0.9% 100 ML IVPB SCH ×4 (01:37→20:21)
[2017-09-21] MEDS: Furosemide 40 MG/4 ML VIAL SLOW IVP SCH (05:56)
[2017-09-21] MEDS: metFORMIN 500 MG TAB PO SCH ×2 (08:58→15:50)
[2017-09-21] MEDS: predniSONE 20 MG TAB PO SCH (09:01)
[2017-09-21] MEDS: cloNIDine 0.2 MG TAB PO SCH ×2 (09:02→20:22)
[2017-09-21] MEDS: Docusate 100 MG CAP PO SCH ×2 (09:02→20:22)
[2017-09-21] MEDS: Carvedilol 6.25 MG TAB PO SCH ×2 (09:02→20:21)
[2017-09-21] MEDS: Amlodipine 10 MG TAB PO SCH (09:02)
[2017-09-21] MEDS: Alogliptin 25 MG TAB PO SCH (09:02)
[2017-09-21] MEDS: Enoxaparin Sodium 40 MG/0.4 ML SYRINGE SC SCH (09:03)
[2017-09-21] MEDS: Losartan 25 MG TAB PO SCH (09:03)
[2017-09-21] MEDS: hydrALAZINE 25 MG TAB PO SCH ×2 (09:03→20:21)
--- NOTE | 2017-09-21 11:58 | PDOC.CTH ---
Cardiology Progress Note - Subjective She is feeling better today. SOB close to baseline. - Objective Vital Signs Temp Pulse Resp BP BP BP Pulse Ox 09/21/17 11:44 76 19 92 L 09/21/17 11:34 98.6 F 84 20 142/68 H 86 L 09/21/17 09:03 84 09/21/17 09:02 84 152/67 H 09/21/17 08:00 98.2 F 84 18 93 L 09/21/17 07:41 95 09/21/17 07:38 84 18 95 09/21/17 07:30 98.2 F 83 20 118/50 L 90 L 09/21/17 04:00 97.2 F L 84 18 136/66 92 L 09/21/17 03:10 79 16 94 L 09/21/17 00:20 98.4 F 91 19 114/50 L 95 Weight 181 lb 12.8 oz 09/20/17 09/21/17 09/22/17 06:59 06:59 06:59 Intake Total 800 1335 Output Total 200 Balance 800 1135 - Physical Examination General/Neuro: alert & oriented x3, NAD Neck: no JVD present Lungs: other: (coarse breath sounds bilat. ) Heart: RRR Abdomen: NT/ND Extremities: other: (no edema) - Telemetry Telemetry Rhythm: NSR - Labs Result Diagrams: 09/18/17 13:13 09/20/17 03:40 Troponin/CKMB CK-MB (CK-2) 2.0 ng/mL (0-6.6) 09/18/17 13:13 Troponin I 0.118 ng/mL (< 0.028) H 09/19/17 06:50 - Assessment/Plan 1. Acute on chronic diastolic heart failure 2. HTN PLAN: - Switch Lasix to PO. - Continue other meds. BP well controlled.
[2017-09-21 12:36] LABS: BUN (Urea Nitrogen) 28 mg/dL (9.8-20.1); Calc. Creatinine Clearance 63 mL/min (70-130); Calcium 9.8 mg/dL (7.8-10.44); Estimated GFR-MDRD 57; Glucose 194 mg/dL (80-115)
[2017-09-21 12:45] LABS: Anion Gap 18 mmol/L (10-20); Carbon Dioxide 34 mmol/L (23-31); Chloride 97 mmol/L (98-107); Potassium 3.4 mmol/L (3.5-5.1); Sodium 146 mmol/L (136-145)
--- NOTE | 2017-09-21 13:04 | PRG ---
DATE OF SERVICE: 09/21/2017 SUBJECTIVE: This morning, she is better, still appears to be encephalopathic. OBJECTIVE: VITAL SIGNS: Sats are 90% on 2 liters, blood pressure 150/67, temperature is 98. CHEST: Bilateral crackles. CARDIAC: Normal S1, S2, no gallops. ABDOMEN: Soft, no masses. LABORATORY DATA: Blood sugars are still fluctuating. IMPRESSION: Congestive heart failure, chronic obstructive pulmonary disease, uncontrolled diabetes. PLAN: Continue neb treatment, supportive care and PT. We will follow.
[2017-09-21] MEDS: Furosemide 40 MG TAB PO SCH (15:49)
[2017-09-21] MEDS: HumaLOG 300 UNITS/3 ML VIAL SC PRN (17:51)
[2017-09-21] MEDS ORDERED: Potassium Chloride 20 MEQ TAB PO SCH (18:15)
[2017-09-21] MEDS: Simvastatin 5 MG TAB PO SCH (20:21)
[2017-09-21] MEDS: traZODone HCl 50 MG TAB PO SCH (20:21)
[2017-09-22] MEDS: Piperacillin/Tazobactam 3.375 GM in Sodium Chloride 0.9% 100 ML IVPB SCH ×4 (01:34→20:15)
--- NOTE | 2017-09-22 08:45 | RAD ---
PORTABLE AP CHEST: Date: 09/22/17 HISTORY: CHF. COMPARISON: 09/18/17. FINDINGS: The pleural and parenchymal changes at the right lung base have improved, but there is a persistent w hat appears to be wedge-shaped area of dense consolidation at the right lung base which could be rela drew to either volume loss or pneumonia. There is suggestion of a tiny right pleural effusion. The lef t lung remains clear. Cardiac silhouette is magnified by projection, but does appear mildly enlarged. Pulmonary vasculature is within normal limits. IMPRESSION: 1. Wedge-shaped area of increased density at the medial right lung base, which is not seen on the pr ior study. This could be related to atelectasis, but pneumonia is a possibility. Follow-up evaluation is recommended. 2. Improvement in patchy parenchymal opacities at the right lung base. There is suggestion of a tiny right pleural effusion. 3. Improvement in pulmonary vascular congestion. POS: CHELSEA
--- NOTE | 2017-09-22 08:51 | PRG ---
DATE OF SERVICE: 09/22/2017 The patient is doing well, had no complaints. PHYSICAL EXAMINATION: VITAL SIGNS: Temperature 97.1, pulse 80, respirations 14, O2 sat is 90% on 3 liters, blood pressure 184/84. HEENT: Unremarkable. NECK: No JVD. CHEST: Clear without wheezing or rhonchi. CARDIAC: S1, S2 regular. ABDOMEN: Soft. EXTREMITIES: No edema. ASSESSMENT: 1. Congestive heart failure. 2. Chronic obstructive pulmonary disease. 3. Diabetes mellitus. PLAN: 1. She should be stable to transfer out to the floor. 2. Continue diuresis. 3. Stop steroids after tomorrow.
[2017-09-22] MEDS: Potassium Chloride 20 MEQ TAB PO SCH (09:43)
[2017-09-22] MEDS: metFORMIN 500 MG TAB PO SCH ×2 (09:43→16:44)
[2017-09-22] MEDS: Carvedilol 6.25 MG TAB PO SCH ×2 (09:44→20:18)
[2017-09-22] MEDS: predniSONE 20 MG TAB PO SCH (09:44)
[2017-09-22] MEDS: Enoxaparin Sodium 40 MG/0.4 ML SYRINGE SC SCH (09:44)
[2017-09-22] MEDS: Docusate 100 MG CAP PO SCH ×2 (09:44→19:57)
[2017-09-22] MEDS: Amlodipine 10 MG TAB PO SCH (09:44)
[2017-09-22] MEDS: Alogliptin 25 MG TAB PO SCH (09:44)
[2017-09-22] MEDS: cloNIDine 0.2 MG TAB PO SCH ×2 (09:44→20:20)
[2017-09-22] MEDS: Losartan 25 MG TAB PO SCH (09:45)
[2017-09-22] MEDS: hydrALAZINE 25 MG TAB PO SCH ×3 (09:45→20:20)
[2017-09-22] MEDS: Furosemide 40 MG TAB PO SCH ×2 (09:47→15:19)
--- NOTE | 2017-09-22 10:39 | PRG ---
DATE OF SERVICE: 09/22/2017 SUBJECTIVE: Ms. Gutierrez is in bed. The nurse said she is very inactive. No chest pain or pressure. OBJECTIVE: VITAL SIGNS: Blood pressure is high 184/84 and pulse 80. LUNGS: Clear anteriorly and laterally. CARDIAC: Normal S1, normal S2. ABDOMEN: Soft, nontender. EXTREMITIES: Mild edema. IMAGING: Chest x-ray shows improvement, but still appears to have some degree of pulmonary vascular congestion. ASSESSMENT: 1. Congestive heart failure, diastolic, acute on chronic, improving, still likely in some degree of heart failure. 2. Hypokalemia. Potassium 3.4. 3. Hypertension. PLAN: 1. We will go ahead and schedule stress test. 2. Increase oral diuretics. 3. Give extra potassium today. 4. Okay with me to go to floor.
[2017-09-22] MEDS: HumaLOG 300 UNITS/3 ML VIAL SC PRN (16:44)
[2017-09-22] MEDS ORDERED: Potassium Chloride 20 MEQ TAB PO SCH (17:00)
[2017-09-22] MEDS: traZODone HCl 50 MG TAB PO SCH (20:17)
[2017-09-22] MEDS: Simvastatin 20 MG TAB PO SCH (20:29)
[2017-09-23] MEDS: Piperacillin/Tazobactam 3.375 GM in Sodium Chloride 0.9% 100 ML IVPB SCH ×2 (02:38→09:41)
[2017-09-23 05:41] LABS: #Eosinphils 0.1 thou/uL (0.0-0.7); #Lymphocytes 1.9 thou/uL (1.20-3.40); #Monocytes 0.7 thou/uL (0.11-0.59); #Neutrophils 8.1 thou/uL (1.40-6.50); %Basophils 0.2 % (0.0-1.0); %Eosinophils 1.2 % (0.0-10.0); %Lymphocytes 17.7 % (21.0-51.0); %Monocytes 6.6 % (0.0-10.0); %Neutrophils 74.2 % (42.0-75.0); Hemoglobin 10.9 g/dL (12.0-16.0); Mean Corpuscular Hemoglobin 28.3 pg (27.0-31.0); Mean Corpuscular Volume 91.4 fl (81.0-99.0); Mean Platelet Volume 8.6 fL (7.4-10.4); Platelet Count 201 thou/uL (130-400); RBC Distribution Width 14.8 % (11.5-14.5); Red Blood Cell (RBC) Count 3.87 mill/uL (4.20-5.40); White Blood Cell (WBC) Count 10.9 thou/uL (4.8-10.8)
[2017-09-23 05:53] LABS: Hemoglobin A1c 7.7 % (4.0-6.0)
[2017-09-23 05:55] LABS: BUN (Urea Nitrogen) 19 mg/dL (9.8-20.1); Calc. Creatinine Clearance 88 mL/min (70-130); Calcium 9.6 mg/dL (7.8-10.44); Estimated GFR-MDRD 82; Glucose 80 mg/dL (80-115)
[2017-09-23 06:03] LABS: Anion Gap 13 mmol/L (10-20); Carbon Dioxide 40 mmol/L (23-31); Chloride 96 mmol/L (98-107); Potassium 3.2 mmol/L (3.5-5.1); Sodium 146 mmol/L (136-145)
--- NOTE | 2017-09-23 09:03 | PRG ---
DATE OF SERVICE: 09/23/2017 The patient seems to be doing reasonably well. She had no complaints. PHYSICAL EXAMINATION: VITAL SIGNS: Temperature 98.6, pulse 80, respirations 14, O2 sat 91% on 3 liters, blood pressure 133 /84. HEENT: Unremarkable. NECK: No JVD. CHEST: Clear without wheezing. CARDIAC: S1 and S2 regular. ABDOMEN: Soft. EXTREMITIES: No edema. LABORATORY DATA: White blood cell count 10.9, hematocrit 35.3, platelet count 201. Sodium 146, pota ssium 3.2, chloride 96, CO2 of 40, BUN 19, creatinine 0.8, glucose 80. ASSESSMENT: 1. Stable chronic obstructive pulmonary disease. 2. Congestive heart failure. 3. Diabetes mellitus. RECOMMENDATIONS: Her IV antibiotics can be stopped and switched to oral antibiotics. Prednisone has been reduced to 20 mg, can likely be weaned over a week. She seems stable for discharge.
[2017-09-23] MEDS: Enoxaparin Sodium 40 MG/0.4 ML SYRINGE SC SCH (12:58)
[2017-09-23] MEDS: Potassium Chloride 20 MEQ TAB PO SCH (12:59)
[2017-09-23] MEDS: Docusate 100 MG CAP PO SCH ×2 (12:59→20:37)
[2017-09-23] MEDS: Losartan 25 MG TAB PO SCH (12:59)
[2017-09-23] MEDS: metFORMIN 500 MG TAB PO SCH ×2 (13:00→19:20)
[2017-09-23] MEDS: Cefdinir 300 MG CAP PO SCH (13:00)
[2017-09-23] MEDS: Amlodipine 10 MG TAB PO SCH (13:01)
[2017-09-23] MEDS: predniSONE 20 MG TAB PO SCH (13:01)
[2017-09-23] MEDS: Alogliptin 25 MG TAB PO SCH (13:01)
[2017-09-23] MEDS: cloNIDine 0.2 MG TAB PO SCH ×2 (13:02→20:36)
[2017-09-23] MEDS: Furosemide 40 MG TAB PO SCH ×2 (13:02→18:00)
[2017-09-23] MEDS: Carvedilol 6.25 MG TAB PO SCH ×2 (13:03→20:36)
[2017-09-23] MEDS: hydrALAZINE 25 MG TAB PO SCH ×3 (13:04→20:37)
--- NOTE | 2017-09-23 14:23 | NM ---
MYOCARDIAL PERFUSION STUDY: DATE: 09/23/17. RADIOPHARMACEUTICALS: 29 mCi Technetium 99m sestamibi, IV at stress, and 33 mCi Technetium 99m sestamibi, IV at rest. MEDICATIONS: 0.4 mg of LexiScan, IV. COMPARISON: 02/04/14. FINDINGS: There is normal distribution of radiotracer seen throughout left ventricular myocardium on stress and resting acquisitions. No significant reversible defect is seen between the stress and resting acqui sitions. Quantitative analysis also demonstrates no significant reversible defect. Gated images mary ann w normal ventricular wall motion and wall thickening. The calculated left ventricular ejection fract ion is 77%. The calculated left ventricular ejection fraction on the prior study in 2013 was 61%. IMPRESSION: 1. Normal myocardial perfusion study without evidence of a reversible defect seen to suggest ischemi a. 2. Normal left ventricular ejection fraction. POS: CHELSEA
[2017-09-23] MEDS ORDERED: Regadenoson 0.4 MG/5 ML SYRINGE ONE (15:04)
[2017-09-23] MEDS: Simvastatin 20 MG TAB PO SCH (20:38)
[2017-09-23] MEDS: traZODone HCl 50 MG TAB PO SCH (20:38)
[2017-09-24] MEDS: metFORMIN 500 MG TAB PO SCH (08:36)
[2017-09-24] MEDS: Alogliptin 25 MG TAB PO SCH (08:36)
[2017-09-24] MEDS: Docusate 100 MG CAP PO SCH ×2 (08:36→08:47)
[2017-09-24] MEDS: predniSONE 20 MG TAB PO SCH (08:36)
[2017-09-24] MEDS: Potassium Chloride 20 MEQ TAB PO SCH (08:36)
[2017-09-24] MEDS: Enoxaparin Sodium 40 MG/0.4 ML SYRINGE SC SCH (08:36)
[2017-09-24] MEDS: hydrALAZINE 25 MG TAB PO SCH ×2 (08:36→15:14)
[2017-09-24] MEDS: Cefdinir 300 MG CAP PO SCH (08:36)
[2017-09-24] MEDS: Carvedilol 6.25 MG TAB PO SCH (08:37)
[2017-09-24] MEDS: Furosemide 40 MG TAB PO SCH ×2 (08:37→15:13)
[2017-09-24] MEDS: Amlodipine 10 MG TAB PO SCH (08:37)
[2017-09-24] MEDS: cloNIDine 0.2 MG TAB PO SCH (08:37)
[2017-09-24] MEDS: Losartan 25 MG TAB PO SCH (08:37)
[2017-09-24 08:49] VITALS: TEMP 99.4
--- NOTE | 2017-09-24 08:51 | PDOC.PULPN ---
Progress Note: Subj/Obj - Subjective Date: 09/24/17 Time: 08:49 Narrative: Doing well. Wants to go home - Objective Allergies/Adverse Reactions: Allergies Allergy/AdvReac Type Severity Reaction Status Date / Time No Known Allergies Allergy Verified 09/18/17 23:06 MAR Reviewed: Yes Vital Signs: Vital Signs Temp 99.4 F 09/24/17 08:00 Pulse 81 09/24/17 08:37 Resp 20 09/24/17 08:00 BP 175/76 H 09/24/17 08:00 Pulse Ox 95 09/24/17 08:00 Intake & Output 09/23/17 09/24/17 09/24/17 18:59 06:59 18:59 Intake Total 1200 Output Total 300 Balance 1200 -300 Weight 173 lb 7 oz Intake: Oral 1200 Output: Urine 300 Other: Voiding Method Diaper Incontinent # Urine Diapers 4 1 # Bowel Movements 1 # Bowel Movement Diapers 1 1 Progress Note: Exam - Physical Exam Constitutional: NAD HEENT: PERRLA Neck: no nodes Cardiovascular: RRR Respiratory: clear to auscultation bilaterally Gastrointestinal: soft Musculoskeletal: no edema Neurological: non-focal Psychiatric: normal affect, A&O x 3 Progress Note: Data - Labs Result Diagrams: 09/23/17 05:17 09/23/17 05:17 Progress Note: A/P - Problems (1) Acute on chronic respiratory failure with hypoxemia Current Visit: Yes Status: Acute Code(s): J96.21 - ACUTE AND CHRONIC RESPIRATORY FAILURE WITH HYPOXIA (2) COPD (chronic obstructive pulmonary disease) Current Visit: Yes Status: Chronic - Time Spent with Patient Time: 50% of the time was spent in coordination of care (as documented) - Plan Plan: ok to go home will sign off
[2017-09-24] MEDS ORDERED: Potassium Chloride 20 MEQ TAB PO SCH (09:00)
--- NOTE | 2017-09-24 09:44 | PRG ---
DATE OF SERVICE: 09/24/2017 HISTORY: Ms. Gutierrez is breathing okay, but she has not gotten out of bed hardly at all. PHYSICAL EXAMINATION: VITAL SIGNS: Blood pressure 125/76; pulse 90, it is regular. LUNGS: Clear. CARDIAC: Normal S1, normal S2. ABDOMEN: Soft and nontender. ASSESSMENT: 1. Hypertension. 2. Diastolic heart failure. 3. Normal stress test. 4. Generalized weakness. PLAN: The patient wishes to go home. I think most likely she will not be able do that successfully, but that is her desire. Continue the current medical regimen. Most likely, the patient needs to be in a nursing facility, but she declines that at this time.
[2017-09-24] MEDS ORDERED: predniSONE 5 MG TAB PO SCH (10:00)
[2017-09-24 11:08] VITALS: BP 112/53
[2017-09-25] MEDS ORDERED: predniSONE 5 MG TAB PO SCH (09:00)
--- NOTE | 2017-09-25 13:30 | DIS ---
DATE OF ADMISSION: 09/18/2017 DATE OF DISCHARGE: 09/24/2017 ADMITTING DIAGNOSES: 1. Acute on chronic diastolic heart failure. 2. Chronic obstructive pulmonary disease with acute exacerbation. 3. Syncope, rule out acute myocardial infarction. 4. Diabetes mellitus. 5. Tobacco abuse. 6. Hypertension. 7. Bipolar disorder. 8. Anxiety disorder. 9. Seizure disorder by history. FINAL DIAGNOSES: 1. Acute on chronic diastolic heart failure, improved. 2. Chronic obstructive pulmonary disease with acute exacerbation, improved. 3. Syncope. 4. No evidence of acute myocardial infarction. 5. Diabetes mellitus. 6. Hypertension. 7. Tobacco abuse. 8. Bipolar disorder. 9. Anxiety disorder. 10. . HOSPITAL COURSE: Deja Gutierrez was found unresponsive in the group home. She was sent to the [facility] where she was found to be in acute on chronic diastolic heart failure and COPD exacerbation. Initially, she was admitted to [facility] for close monitoring. She was continued on IV Lasix, DuoNeb, an d Solu-Medrol. Consultation with Cardiology. The patient was seen by Dr. Rajan. He felt the kiara nt had recurrent diastolic heart failure, suggested to increase the dose of the diuretic medications. Consultation was also done with Pulmonary regarding her COPD. Patient was seen by Dr. Rodriguez. He felt the patient has acute on chronic hypoxic respiratory failure with chronic hypercapnic respirato ry failure. The patient is to continue the current management. The patient is admitted to [facility] [place] use of the home BiPAP. The patient service specialist have made adjustments to BiPAP settings. The terry walsh was monitored for the next few days and slowly improved. After she became more stable, the patient underwent Cardiolite stress test and it was negative for ischemia. The patient was started on physi lamberto therapy. Her steroid dose was decreased and changed to prednisone. Her Lasix dose was also garland ged to p.o. with increased dose of 80 mg b.i.d. The patient has been markedly improved. She has bee n eating well, but not ambulating much. The patient wants to go home, not the group home. Family in agreement, they said they can take care of her. In view of improvement, the patient was discharge d. At the time of discharge, she was stable. Her vital signs stable. Lungs are clear. Heart sound s regular. Abdomen is soft, nontender. Bowel sounds present. DISCHARGE MEDICATIONS: Include amlodipine 10 mg daily, simvastatin 10 mg at bedtime, sertraline 100 mg daily, losartan 100 mg daily, metformin 1000 b.i.d., clonidine 0.2 b.i.d., trazodone 100 mg at bed time, Amaryl 4 mg b.i.d., Januvia 100 mg daily, hydralazine 50 b.i.d., Coreg 6.25 b.i.d., Tylenol p.r .n., Colace 100 mg b.i.d., Lasix 80 mg b.i.d., prednisone 10 mg daily, Omnicef 300 mg b.i.d., f or 1 week and prednisone also for 1 week. FOLLOWUP: The patient will follow with her physician next week.
== END 2017-09-24 16:11 | disposition home health service (06) | DRG 291 ==
LOC: ERS 12:22 → 2NO 17:08 → IMCU/EMU 09-19 00:09 → ONC 09-22 17:05
PROVIDERS: ADMIT Internal Medicine; ATTEND Internal Medicine
DX: I11.0 Hypertensive heart disease with heart failure (principal); J96.21 Acute and chronic respiratory failure with hypoxia; G93.40 Encephalopathy, unspecified; N17.9 Acute kidney failure, unspecified; J96.12 Chronic respiratory failure with hypercapnia; I50.33 Acute on chronic diastolic (congestive) heart failure; J44.9 Chronic obstructive pulmonary disease, unspecified; E11.9 Type 2 diabetes mellitus without complications; E78.5 Hyperlipidemia, unspecified; F41.9 Anxiety disorder, unspecified; F17.210 Nicotine dependence, cigarettes, uncomplicated; Z99.81 Dependence on supplemental oxygen; F31.9 Bipolar disorder, unspecified; G40.909 Epilepsy, unspecified, not intractable, without status epilepticus; E87.6 Hypokalemia; E66.01 Morbid (severe) obesity due to excess calories; I27.20 Pulmonary hypertension, unspecified; Z68.31 Body mass index [BMI] 31.0-31.9, adult
CPT/HCPCS: 36415; 36416; 71045; 78452; 80048; 80053; 82553; 82728; 82805; 83036; 83540; 83550; 83880; 84484; 85025; 93005; 93017; 94640; 94660; 96365; 96372; 96375; A4216; A9500; G8978-GP-CK; G8979-GP-CK; G8980-GP-CK; J1650; J1940; J2543; J2785; J2920; J3370; J7050; J7506; J7620

== ENCOUNTER 2018-05-25 01:33 | Inpatient (IN) | payer MEDICARE, MEDICAID ==
[2018-05-25] MEDS ORDERED: methylPREDNISolone Sod Succ/PF 125 MG/2 ML VIAL ONE (02:17)
[2018-05-25] MEDS ORDERED: cefTRIAXone\\ROCEPHIN 2 GM VIAL ONE (02:17)
[2018-05-25 02:37] LABS: #Basophils 0.1 thou/uL (0.0-0.2); #Eosinphils 0.2 thou/uL (0.0-0.7); #Lymphocytes 2.4 thou/uL (1.20-3.40); #Monocytes 0.5 thou/uL (0.11-0.59); #Neutrophils 8.2 thou/uL (1.40-6.50); %Basophils 0.6 % (0.0-1.0); %Eosinophils 1.3 % (0.0-10.0); %Lymphocytes 21.2 % (21.0-51.0); %Neutrophils 72.9 % (42.0-75.0); ALT (SGPT) 9 U/L (8-55); AST (SGOT) 22 U/L (5-34); Albumin 3.7 g/dL (3.4-4.8); Alkaline Phosphatase 85 U/L (40-150); Anion Gap 14 mmol/L (10-20); BUN (Urea Nitrogen) 12 mg/dL (9.8-20.1); Bilirubin, Total 0.3 mg/dL (0.2-1.2); Calc. Creatinine Clearance 0 mL/min (70-130); Calcium 9.7 mg/dL (7.8-10.44); Carbon Dioxide 29 mmol/L (23-31); Chloride 96 mmol/L (98-107); Estimated GFR-MDRD 46; Globulin 4.6 g/dL (2.4-3.5); Glucose 438 mg/dL (80-115); Hemoglobin 13.3 g/dL (12.0-16.0); Lipase 25 U/L (8-78); Mean Corpuscular HGB CONC 32.2 g/dL (32.0-36.0); Mean Corpuscular Hemoglobin 28.3 pg (27.0-31.0); Mean Corpuscular Volume 88.1 fL (78.0-98.0); Mean Platelet Volume 9.4 fL (7.4-10.4); Platelet Count 280 thou/uL (130-400); Potassium 3.8 mmol/L (3.5-5.1); Protein, Total 8.3 g/dL (6.0-8.3); RBC Distribution Width 13.6 % (11.5-14.5); Red Blood Cell (RBC) Count 4.69 mill/uL (4.20-5.40); Sodium 135 mmol/L (136-145); White Blood Cell (WBC) Count 11.2 thou/uL (4.8-10.8)
[2018-05-25] MEDS ORDERED: Furosemide 20 MG/2 ML VIAL ONE (05:42)
[2018-05-25] MEDS ORDERED: Ondansetron PF 4 MG/2 ML Vial IVP PRN (07:26)
[2018-05-25] MEDS ORDERED: Diabetic Tussin 200 MG/10 ML UDCUP PO PRN (07:26)
[2018-05-25] MEDS ORDERED: hydrALAZINE 20 MG/ML VIAL SLOW IVP PRN (07:26)
[2018-05-25] MEDS ORDERED: Acetaminophen 325 MG TAB PO PRN (07:26)
[2018-05-25] MEDS ORDERED: HumaLOG 300 UNITS/3 ML VIAL SC PRN (07:26)
[2018-05-25] MEDS ORDERED: Loratadine 10 MG TAB PO PRN (07:26)
[2018-05-25] MEDS ORDERED: Artificial Tears 18 DROP/0.9 ML EA EYE PRN (07:26)
[2018-05-25] MEDS ORDERED: Dextrose 50% Abboject 50 ML SYRINGE SLOW IVP PRN (07:26)
[2018-05-25] MEDS ORDERED: Dextrose 5% in Water 1,000 ML IV PRN (07:26)
[2018-05-25] MEDS ORDERED: Ondansetron ODT 4 MG TAB PO PRN (07:26)
[2018-05-25] MEDS ORDERED: Senokot S 8.6-50 MG TAB PO PRN (07:26)
[2018-05-25] MEDS ORDERED: Cepastat Lozenges 1 LOZ PO PRN (07:26)
[2018-05-25] MEDS ORDERED: Eucerin (Mineral Oil/Petrolatum,White) 30 gm Jar TOP PRN (07:26)
[2018-05-25] MEDS ORDERED: Calcium Carbonate 500 MG ChewTAB PO PRN (07:26)
[2018-05-25] MEDS ORDERED: HYDROcodone/Acetaminophen 5/325 mg Tablet PO PRN (07:26)
[2018-05-25] MEDS ORDERED: Sodium Chloride 0.65% Nasal 44 ML BOT EA NARE PRN (07:26)
[2018-05-25] MEDS ORDERED: Bisacodyl 10 MG SUPP PR PRN (07:26)
[2018-05-25] MEDS ORDERED: Bisacodyl 5 MG TAB PO PRN (07:26)
[2018-05-25] MEDS ORDERED: Loperamide HCl 2 MG CAP PO PRN (07:26)
--- NOTE | 2018-05-25 08:06 | RAD ---
SINGLE VIEW OF THE CHEST: Comparison: 09-22-17 History: Difficulty breathing, shortness of breath. FINDINGS: Single view of the chest shows a normal sized cardiomediastinal silhouette. There is no evidence of c onsolidation, mass, or pleural effusion. The bones are unremarkable. IMPRESSION: No evidence of acute cardiopulmonary disease. POS: [facility]
[2018-05-25] MEDS ORDERED: Levofloxacin 500 mg/D5W 100 ml Premix Bag ONE (08:32)
--- NOTE | 2018-05-25 08:33 | CT ---
PRELIMINARY REPORT/[facility]/EMERGENTY AFTER-HOURS PROCEDURE CT Angiography Chest With Contrast EXAM DATE/TIME: 05/25/2018 4:24 AM CLINICAL HISTORY: 68 years old, female; Pain; Chest pain; On breathing; Patient HX: [place] presents to ed for SOB. PT repo rts SX began april 19. PT reports smoking. PT denies fever or chills, denies being around sick in dividuals, or getting flu shot. Hx- copd. TECHNIQUE: Axial computed tomographic angiography images of the chest with intravenous contrast using CT angiogr aphy protocol. MIP reconstructed images were created and reviewed. COMPARISON: No relevant prior studies available. FINDINGS: Pulmonary arteries: Normal. No pulmonary emboli. Aorta: Atherosclerotic aorta. No aneurysm or acute aortic syndrome. Lungs: Indeterminate 4 mm lingular pulmonary nodule. Mild emphysema. Mild smooth interlobular septal thickening at the lung apices and bases suggests mild hydrostatic interstitial pulmonary edema/CHF. Pleural space: Normal. No pneumothorax. No pleural effusion. Heart: Normal. No cardiomegaly. No pericardial effusion. Mediastinum: Esophagus is unremarkable. Lymph nodes: Mildly enlarged mediastinal and bihilar lymph nodes measuring up to 1.3 cm in short axis , indeterminate. Mildly enlarged 7 mm short axis gastrohepatic ligament lymph node, indeterminate. Bones/joints: Unremarkable. No acute fracture. Soft tissues: Unremarkable. IMPRESSION: 1. Mildly enlarged mediastinal and bihilar lymph nodes measuring up to 1.3 cm in short axis, indeterm inate. 2. Mildly enlarged 7 mm short axis gastrohepatic ligament lymph node, indeterminate. 3. Mild smooth interlobular septal thickening at the lung apices and bases suggests mild hydrostatic interstitial pulmonary edema/CHF. Thank you for allowing us to participate in the care of your patient. Dictated and Authenticated by: Andrei Rodríguez MD 05/25/2018 5:36 AM Central Time ([place] & [place]) FINAL REPORT CT ANGIOGRAM CHEST WITH COTNRAST: HISTORY: Chest pain. COMPARISON: None. TECHNIQUE: CT angiogram chest is performed after the intravenous administration of contrast. Three-D rendering is provided. FINDINGS/IMPRESSION: Findings and impression are concordant with the preliminary report. Prominent hilar and mediastinal lymph nodes are similar to the 06/30/2017 exam. POS: [facility]
[2018-05-25] MEDS ORDERED: Famotidine 20 MG TAB ONE (09:06)
[2018-05-25] MEDS ORDERED: Enoxaparin Sodium 40 MG/0.4 ML SYRINGE ONE (09:06)
[2018-05-25] MEDS: Enoxaparin Sodium 40 MG/0.4 ML SYRINGE SC SCH (09:14)
[2018-05-25] MEDS: Famotidine 20 MG TAB PO SCH ×2 (09:16→20:04)
[2018-05-25] MEDS ORDERED: Iopamidol 370 76% 100 ML VIAL ONE (11:54)
--- NOTE | 2018-05-25 13:05 | HP ---
PRIMARY CARE PHYSICIAN: [facility] Call admission. REASON FOR ADMISSION: COPD exacerbation. HISTORY OF PRESENT ILLNESS: This is a 68-year-old female, who has underlying COPD, who was brought to emergency room for increasing shortness of breath. The patient has 2 to 3 weeks history of increasing shortness of breath. She was trying her own inhalers without any improvement. She was having cough, productive of scant amount of sputum. She denies any hemoptysis. She denies any pleuritic chest pain. She denies any lower extremity edema or calf tenderness. She denies any pleuritic chest discomfort. She denies any flu-like illness. The patient denies any sick exposure or recent travel. In the emergency room, the patient was in respiratory distress. She was given respiratory therapy by Paramedics. Subsequently, she was brought to ER and the patient was treated with Rocephin, Solu-Medrol, DuoNeb therapy as well as Lasix. The patient's condition did not improve significantly and that is why we decided to keep this patient in the hospital. In the emergency room, the patient had CT angiography, which was negative for pulmonary embolism, but it did show mediastinal and hilar lymphadenopathy. REVIEW OF SYSTEMS: CONSTITUTIONAL: Negative for weight loss or gain, ability to conduct usual activities. SKIN: Negative for rash, itching. EYES: Negative for double vision, pain. ENT/MOUTH: Negative for nose bleeding, neck stiffness, pain, tenderness. CARDIOVASCULAR: Negative for palpitations, dyspnea on exertion, orthopnea. RESPIRATORY: Negative for shortness of breath, wheezing, cough, hemoptysis, fever or night sweats. GASTROINTESTINAL: Negative for poor appetite, abdominal pain, heartburn, nausea, vomiting, constipation, or diarrhea. GENITOURINARY: Negative for urgency, frequency, dysuria, nocturia. MUSCULOSKELETAL: Negative for pain, swelling. NEUROLOGIC/PSYCHIATRIC: Negative for anxiety, depression. ALLERGY/IMMUNOLOGIC: Negative for skin rash, bleeding tendency. Please see my HPI for pertinent positives and negatives. All other review of systems reviewed and negative except as mentioned in HPI. PAST MEDICAL HISTORY: Diabetes type 2; hypertension; chronic stage C diastolic heart failure; COPD; chronic respiratory failure, on home oxygen; dyslipidemia. PAST PSYCHIATRIC HISTORY: Anxiety, depression, and bipolar disorder. PAST SURGICAL HISTORY: Total hysterectomy, ear surgery, trigger finger surgery, hysterectomy, and tubal ligation. SOCIAL HISTORY: The patient is smoking about half pack per day. She denies any alcohol abuse. She denies any other illicit drug abuse. FAMILY HISTORY: No family history of coronary artery disease, stroke, or cancer. ALLERGIES: NO KNOWN DRUG ALLERGIES. CURRENT HOME MEDICATIONS: 1. Amlodipine 10 mg daily. 2. Coreg 6.25 mg b.i.d. 3. Catapres 0.2 mg p.o. b.i.d. 4. Losartan 100 mg daily. 5. Metformin 1000 mg p.o. b.i.d. 6. Zoloft 100 mg daily. 7. Zocor 10 mg p.o. daily. 8. Januvia 100 mg daily. 9. Trazodone 100 mg p.o. at bedtime. 10. Colace 100 mg b.i.d. 11. Lasix 20 mg b.i.d. 12. Hydralazine 50 mg p.o. b.i.d. EMERGENCY ROOM COURSE: The patient is given Rocephin, Solu-Medrol 125 mg, Lasix 20 mg IV, DuoNeb therapy, and IV fluid. PHYSICAL EXAMINATION: VITAL SIGNS: On arrival, blood pressure 116/67, pulse 112, respiratory rate 24, saturation 96% on 3 L oxygen. Weight 104.3 kg. GENERAL: The patient is currently alert, awake, and in mild respiratory distress. HEENT: Head; normocephalic, atraumatic. Eyes; pupils round, reactive to light. Extraocular muscle intact. ENT; oropharynx within normal limits. Moist mucous membranes. No oral lesion. No pharyngeal erythema. No exudate. NECK: Supple. No JVD. No thyromegaly. No carotid bruit. LUNGS: Bilateral end-expiratory wheezing heard. No rales. No accessory muscles of respiration in use. CARDIAC: S1 and S2 regular, tachycardia. No murmur. No gallop. No rub. ABDOMEN: Soft. Bowel sounds present. Nontender. Nondistended. No organomegaly. No mass. No suprapubic tenderness. BACK: Unremarkable. No CVA tenderness. EXTREMITIES: Upper extremities; passive movement of all joints is normal. Lower extremities; no edema. Good distal pulsation. SKIN: No skin rash. HEMATOLOGIC: normal exam. PSYCHIATRIC: Normal affect. SIGNIFICANT LABORATORY DATA: CT angiography showing bilateral mild mediastinal and hilar lymphadenopathy. Gastrohepatic ligament lymph node enlarged to 7 mm. Smooth interlobular septal thickening in apices. Chest x-ray showed no acute cardiopulmonary process. CBC; WBC 11.2, hemoglobin 13.3, and platelets 280. D-dimer 0.56. Sodium 135, potassium 3.8, chloride 96, carbon dioxide 29, BUN 12, creatinine 1.40, glucose 438, calcium 9.7. LFT; AST 22, ALT 9, alkaline phosphatase 85, albumin 3.7, and lipase 25. Troponin 0.021. BNP 52.8. ASSESSMENT AND PLAN: Impression: 1. Acute on chronic respiratory failure with hypoxia, likely due to underlying chronic obstructive pulmonary disease exacerbation. The patient will require admission. She will be treated with DuoNeb q.4 hourly, Levaquin 500 mg IV daily, Mucinex 600 mg twice daily, Solu-Medrol 20 mg IV q.6 hourly, and Dulera two puff inhalation b.i.d. 2. Diabetes type 2, uncontrolled. We will start Amaryl 4 mg p.o. b.i.d., metformin 1000 mg p.o. b.i.d., Januvia 100 mg p.o. daily, insulin as per sliding scale per protocol. Diabetic diet will be given. 3. Hypertension. We will continue amlodipine 10 mg daily, clonidine 0.2 mg b.i.d., losartan 100 mg p.o. daily, and hydralazine 50 mg p.o. b.i.d. 4. Chronic diastolic heart failure, stage C. Continue Lasix 20 mg p.o. b.i.d. 5. Dyslipidemia. Continue Zocor 10 mg p.o. at bedtime. 6. Anxiety, depression, and bipolar disorder. Continue Zoloft 100 mg p.o. daily, trazodone 100 mg p.o. at bedtime. 7. Chronic kidney disease, stage 3. We will monitor renal function. Avoid nephrotoxin agent. 8. Lymphadenopathy, likely reactive. The patient will need further imaging as an outpatient basis for followup on the lymphadenopathy. 9. Deep venous thrombosis prophylaxis. Lovenox 40 mg subcu daily. 10. GI prophylaxis. Pepcid 20 mg p.o. b.i.d. CODE STATUS: The patient is full code. The patient does not have any surrogate decision maker. DISPOSITION PLAN: Based on clinical course, we are expecting the patient's stay in hospital more than 2 midnights. Plan of care discussed with the patient in detail. Job ID: [id number] MTDD
[2018-05-25] MEDS: guaiFENesin ER 600 MG TAB PO SCH ×2 (14:35→20:04)
[2018-05-25] MEDS ORDERED: Non-Formulary Item 1 EACH (Metformin Hcl [Metformin Hcl] 1,000 MG) PO SCH (17:00)
[2018-05-25] MEDS ORDERED: HumaLOG 300 UNITS/3 ML VIAL ONE (17:22)
[2018-05-25] MEDS: metFORMIN 500 MG TAB PO SCH (17:26)
[2018-05-25] MEDS: HumaLOG 300 UNITS/3 ML VIAL SC PRN (17:27)
[2018-05-25 17:49] VITALS: BMI 31.4
[2018-05-25] MEDS: Mometasone/Formoterol 120 PUFF INHALER INH SCH (18:23)
[2018-05-25] MEDS: Simvastatin 5 MG TAB PO SCH (20:04)
[2018-05-25] MEDS: Furosemide 20 MG TAB PO SCH (20:05)
[2018-05-25] MEDS: Docusate 100 MG CAP PO SCH ×2 (20:05→20:18)
[2018-05-25] MEDS: Carvedilol 6.25 MG TAB PO SCH (20:05)
[2018-05-25] MEDS: hydrALAZINE 25 MG TAB PO SCH (20:06)
[2018-05-25] MEDS: traZODone HCl 50 MG TAB PO SCH (20:07)
[2018-05-25] MEDS: cloNIDine 0.2 MG TAB PO SCH (20:17)
[2018-05-25] MEDS: Glimepiride 4 MG TAB PO SCH (20:25)
[2018-05-25] MEDS ORDERED: Non-Formulary Item 1 EACH (Trazodone Hcl [Trazodone Hcl] 100 MG) PO SCH (21:00)
[2018-05-25] MEDS ORDERED: Non-Formulary Item 1 EACH (Simvastatin [Simvastatin] 10 MG) PO SCH (21:00)
[2018-05-25 22:09] LABS: Bilirubin Negative (Negative); Blood, Urine Negative (Negative); Clarity CLEAR (Clear); Glucose, Urine (Dipstick) >=1000 mg/dL (Negative); Leukocyte Negative (Negative); Nitrite Negative (Negative); Protein, Urine (Dipstick) Negative (Neg-Trace); Specific Gravity, Urine 1.029 (1.002-1.036); Urobilinogen 0.2 mg/dL (0.2-1.0); pH, Urine 5.5 (5.0-9.0)
[2018-05-25 22:12] LABS: Bacteria/HPF None Seen HPF (None Seen); Hyaline Casts/LPF 0-3 HYALINE CAST LPF (0-3 Hyaline); Pathc Cast-AUWi Flag 0.14 (0-2.49); RBC/HPF 0-3 HPF (0-3); WBC/HPF 0-3 HPF (0-3)
[2018-05-25 22:17] LABS: Yeast-AUWi Flag 78.3 (0-25.0)
[2018-05-25 22:23] LABS: Yeast-All Forms 1+ HPF (None Seen)
[2018-05-25] MEDS ORDERED: Prevnar 13-Val Conj/PF 0.5 ML SYRINGE IM ONE (23:45)
[2018-05-26] MEDS: HumaLOG 300 UNITS/3 ML VIAL SC PRN ×2 (05:45→11:34)
[2018-05-26] MEDS: Mometasone/Formoterol 120 PUFF INHALER INH SCH ×2 (06:31→20:06)
[2018-05-26 08:08] LABS: ALT (SGPT) 12 U/L (8-55); AST (SGOT) 23 U/L (5-34); Albumin 3.7 g/dL (3.4-4.8); Alkaline Phosphatase 72 U/L (40-150); Anion Gap 14 mmol/L (10-20); BUN (Urea Nitrogen) 19 mg/dL (9.8-20.1); Bilirubin, Total 0.3 mg/dL (0.2-1.2); Calc. Creatinine Clearance 67 mL/min (70-130); Calcium 9.8 mg/dL (7.8-10.44); Carbon Dioxide 28 mmol/L (23-31); Chloride 97 mmol/L (98-107); Estimated GFR-MDRD 66; Globulin 4.2 g/dL (2.4-3.5); Glucose 325 mg/dL (80-115); Potassium 4.3 mmol/L (3.5-5.1); Protein, Total 7.9 g/dL (6.0-8.3); Sodium 135 mmol/L (136-145)
[2018-05-26 08:17] LABS: Hemoglobin 12.3 g/dL (12.0-16.0); Mean Corpuscular HGB CONC 31.9 g/dL (32.0-36.0); Mean Corpuscular Hemoglobin 27.9 pg (27.0-31.0); Mean Corpuscular Volume 87.5 fL (78.0-98.0); Mean Platelet Volume 9.5 fL (7.4-10.4); Platelet Count 238 thou/uL (130-400); RBC Distribution Width 13.6 % (11.5-14.5); Red Blood Cell (RBC) Count 4.42 mill/uL (4.20-5.40); White Blood Cell (WBC) Count 15.6 thou/uL (4.8-10.8)
[2018-05-26] MEDS: HumuLIN 70/30 (300 UNITS/3 ML VIAL) SC SCH ×3 (08:57→17:05)
[2018-05-26] MEDS: guaiFENesin ER 600 MG TAB PO SCH ×2 (08:58→22:02)
[2018-05-26] MEDS: Amlodipine 10 MG TAB PO SCH (08:58)
[2018-05-26] MEDS: metFORMIN 500 MG TAB PO SCH ×2 (08:58→17:05)
[2018-05-26] MEDS: cloNIDine 0.2 MG TAB PO SCH ×2 (08:58→22:02)
[2018-05-26] MEDS: Docusate 100 MG CAP PO SCH ×2 (08:58→22:02)
[2018-05-26] MEDS: Losartan 25 MG TAB PO SCH (08:58)
[2018-05-26] MEDS: Famotidine 20 MG TAB PO SCH ×2 (08:58→22:03)
[2018-05-26] MEDS: Furosemide 20 MG TAB PO SCH ×2 (08:58→22:02)
[2018-05-26] MEDS: hydrALAZINE 25 MG TAB PO SCH ×2 (08:58→22:13)
[2018-05-26] MEDS: Alogliptin 25 MG TAB PO SCH (08:59)
[2018-05-26] MEDS: Glimepiride 4 MG TAB PO SCH ×2 (08:59→22:14)
[2018-05-26] MEDS ORDERED: Non-Formulary Item 1 EACH (Sitagliptin Phosphate [Januvia] 100 MG) PO SCH (09:00)
[2018-05-26] MEDS: Carvedilol 6.25 MG TAB PO SCH ×2 (09:00→22:02)
[2018-05-26] MEDS: Enoxaparin Sodium 40 MG/0.4 ML SYRINGE SC SCH (09:00)
[2018-05-26] MEDS ORDERED: Non-Formulary Item 1 EACH (Losartan Potassium [Losartan Potassium] 100 MG) PO SCH (09:00)
[2018-05-26] MEDS ORDERED: Amlodipine 5 MG TAB PO SCH (09:00)
[2018-05-26 09:39] LABS: Band 12 % (5-11); Lymphocytes 5 % (21-51); MDiff Complete? YES; Monocytes 3 % (0-10); Neutrophil 80 % (42-75); RBC Morphology Normal
--- NOTE | 2018-05-26 13:44 | PDOC.PN ---
- Subjective Encounter Start Date: 05/26/18 Encounter Start Time: 09:15 -: old records requested/rev Patient seen and examined. No new complaints. No overnight events pt is improving - Objective Resuscitation Status - Order Detail: 05/25/18 07:23 Resuscitation Status Routine Resuscitation Status: FULL: Full Resuscitation MAR Reviewed: Yes Vital Signs & Weight: Vital Signs (12 hours) Temp Pulse Resp BP BP Pulse Ox 05/26/18 11:00 98.6 F 90 18 92/52 L 95 05/26/18 10:25 102 H 14 92 L 05/26/18 09:00 128/64 05/26/18 08:58 105 H 128/64 05/26/18 07:41 98.7 F 105 H 16 150/71 H 92 L 05/26/18 06:31 103 H 16 96 05/26/18 06:19 102 H 16 96 05/26/18 04:00 98.7 F 105 H 20 146/71 H 93 L Weight Weight 172 lb I&O: 05/25/18 05/26/18 05/27/18 06:59 06:59 06:59 Intake Total 480 Balance 480 Result Diagrams: 05/26/18 07:14 05/26/18 07:14 Additional Labs: Accuchecks 05/26/18 05/26/18 05/25/18 11:16 05:38 20:23 POC Glucose 331 H 300 H 295 H 05/25/18 17:18 POC Glucose 542 H Phys Exam - Physical Examination Constitutional: NAD HEENT: PERRLA, moist MMs, sclera anicteric Neck: no JVD, supple Respiratory: no rales, wheezing present Cardiovascular: RRR, no significant murmur, no rub Gastrointestinal: soft, non-tender, no distention, positive bowel sounds Musculoskeletal: no edema, pulses present Neurological: non-focal, normal sensation, moves all 4 limbs Lymphatic: no nodes Psychiatric: normal affect, A&O x 3 Skin: no rash, normal turgor Dx/Plan (1) Acute on chronic respiratory failure with hypoxemia Code(s): J96.21 - ACUTE AND CHRONIC RESPIRATORY FAILURE WITH HYPOXIA Status: Acute Comment: Secondary to CHF exacerbation (2) Chronic obstructive pulmonary disease with acute exacerbation Code(s): J44.1 - CHRONIC OBSTRUCTIVE PULMONARY DISEASE W (ACUTE) EXACERBATION Status: Acute (3) HTN (hypertension) Code(s): I10 - ESSENTIAL (PRIMARY) HYPERTENSION Status: Chronic (4) Obesity (BMI 30.0-34.9) Code(s): E66.9 - OBESITY, UNSPECIFIED Status: Chronic (5) Tobacco abuse Code(s): Z72.0 - TOBACCO USE Status: Chronic Comment: (6) Diabetes type 2, uncontrolled Code(s): E11.65 - TYPE 2 DIABETES MELLITUS WITH HYPERGLYCEMIA Status: Chronic - Plan cont current plan of care, continue antibiotics, respiratory therapy * medication reviewed as below * symptomatic treatment * continue levaquin * reduce solumedrol * continue current optimum respiratory therapy. Review of Systems - Review of Systems ENT: negative: Ear Pain, Ear Discharge, Nose Pain, Nose Discharge, Nose Congestion, Mouth Pain, Mouth Swelling, Throat Pain, Throat Swelling, Other Respiratory: Cough, Wheezing. negative: Dry, Shortness of Breath, Hemoptysis, SOB with Excertion, Pleuritic Pain, Sputum Cardiovascular: negative: chest pain, palpitations, orthopnea, paroxysmal nocturnal dyspnea, edema, light headedness, other Gastrointestinal: negative: Nausea, Vomiting, Abdominal Pain, Diarrhea, Constipation, Melena, Hematochezia, Other Genitourinary: negative: Dysuria, Frequency, Incontinence, Hematuria, Retention , Other Musculoskeletal: negative: Neck Pain, Shoulder Pain, Arm Pain, Back Pain, Hand Pain, Leg Pain, Foot Pain, Other Skin: negative: Rash, Lesions, Edgard, Bruising, Other - Medications/Allergies Allergies/Adverse Reactions: Allergies Allergy/AdvReac Type Severity Reaction Status Date / Time No Known Allergies Allergy Verified 05/25/18 17:52 Medications: Current Medications Acetaminophen (Tylenol) 650 mg PO Q4H PRN PRN Reason: Headache/Fever/Mild Pain (1-3) Hydrocodone Bitart/Acetaminophen ([place]rie 5/325) 1 tab PO Q4H PRN PRN Reason: Moderate Pain (4-6) Albuterol/Ipratropium (Duoneb) 3 ml NEB [id number] [facility] Last Admin: 05/26/18 10:25 Dose: 3 ml Alogliptin Benzoate (Alogliptin) 25 mg PO DAILY [facility] Last Admin: 05/26/18 08:59 Dose: 25 mg Amlodipine Besylate (Norvasc) 10 mg PO DAILY [facility] Last Admin: 05/26/18 08:58 Dose: 10 mg Artificial Tears (Tears Naturale) 2 drop EA EYE PRN PRN PRN Reason: Dry Eyes Bisacodyl (Dulcolax) 10 mg PO DAILYPRN PRN PRN Reason: Constipation Bisacodyl (Dulcolax) 10 mg ND DAILYPRN PRN PRN Reason: Constipation Calcium Carbonate (Tums) 1,000 mg PO Q4H PRN PRN Reason: Heartburn or Indigestion Carvedilol (Coreg) 6.25 mg PO BID [facility] Last Admin: 05/26/18 09:00 Dose: 6.25 mg Clonidine (Catapres) 0.2 mg PO BID [facility] Last Admin: 05/26/18 08:58 Dose: 0.2 mg Dextrose/Water (Dextrose 50%) 25 gm SLOW IVP PRN PRN PRN Reason: Hypoglycemia Docusate Sodium (Colace) 100 mg PO BID [facility] Last Admin: 05/26/18 08:58 Dose: 100 mg Enoxaparin Sodium (Lovenox) 40 mg SC 0900 [facility] Last Admin: 05/26/18 09:00 Dose: 40 mg Famotidine (Pepcid) 20 mg PO BID [facility] Last Admin: 05/26/18 08:58 Dose: 20 mg Furosemide (Lasix) 20 mg PO BID [facility] Last Admin: 05/26/18 08:58 Dose: 20 mg Glimepiride (Amaryl) 4 mg PO BID [facility] Last Admin: 05/26/18 08:59 Dose: 4 mg Glucagon (Glucagon) 1 mg IM PRN PRN PRN Reason: Hypoglycemia Guaifenesin (Mucinex) 600 mg PO Q12HR [facility] Last Admin: 05/26/18 08:58 Dose: 600 mg Guaifenesin (Robitussin Sf) 200 mg PO Q4H PRN PRN Reason: Cough Hydralazine HCl (Apresoline) 10 mg SLOW IVP Q4H PRN PRN Reason: SBP > 180 and HR < 70 Hydralazine HCl (Apresoline) 50 mg PO BID [facility] Last Admin: 05/26/18 08:58 Dose: 50 mg Levofloxacin 500 mg/ Device 100 mls @ 100 mls/hr IVPB 0800 [facility] Last Admin: 05/26/18 08:57 Dose: 100 mls Dextrose/Water (D5w) 1,000 mls @ 0 mls/hr IV .Q0M PRN PRN Reason: Hypoglycemia Insulin Human Isoph/Insulin Regular (Humulin 70/30) 10 units SC AC [facility] Last Admin: 05/26/18 11:34 Dose: 10 unit Insulin Human Lispro (Humalog) 0 units SC .MODERATE SLIDING SC PRN PRN Reason: Moderate Correctional Scale Last Admin: 05/26/18 11:34 Dose: 8 unit Insulin Human Lispro (Humalog) 0 units SC .BEDTIME SLIDING SC PRN PRN Reason: Bedtime Correctional Scale Loperamide HCl (Imodium) 2 mg PO PRN PRN PRN Reason: Diarrhea/Loose Stools Loratadine (Claritin) 10 mg PO DAILYPRN PRN PRN Reason: Sinus Symptoms Losartan Potassium (Cozaar) 100 mg PO DAILY [facility] Last Admin: 05/26/18 08:58 Dose: 100 mg Metformin HCl (Glucophage) 1,000 mg PO BID-WM [facility] Last Admin: 05/26/18 08:58 Dose: 1,000 mg Methylprednisolone Sodium Succinate (Solu-Medrol) 20 mg IVP Q8HR [facility] Mineral Oil/White Petrolatum (Eucerin Cream) 0 gm TOP BIDPRN PRN PRN Reason: Dry Skin Mometasone Furoate/Formoterol Fumar (Dulera 200 Mcg/5 Mcg Inhaler) 2 puff INH BID-RT [facility] Last Admin: 05/26/18 06:31 Dose: 2 puff Ondansetron HCl (Zofran Odt) 4 mg PO Q6H PRN PRN Reason: Nausea/Vomiting Ondansetron HCl (Zofran) 4 mg IVP Q6H PRN PRN Reason: Nausea/Vomiting Senna/Docusate Sodium (Senokot S) 2 tab PO BID PRN PRN Reason: Constipation Sertraline HCl (Zoloft) 100 mg PO DAILY [facility] Last Admin: 05/26/18 08:58 Dose: 100 mg Simvastatin (Zocor) 10 mg PO HS [facility] Last Admin: 05/25/18 20:04 Dose: 10 mg Sodium Chloride (Primera Nasal Godley 0.65%) 0 ml EA NARE QIDPRN PRN PRN Reason: Nasal Congestion Sodium Chloride (Flush - Normal Saline) 10 ml IVF Q12HR [facility] Last Admin: 05/26/18 09:00 Dose: 10 ml Sodium Chloride (Flush - Normal Saline) 10 ml IVF PRN PRN PRN Reason: Saline Flush Throat Lozenges (Cepastat Lozenges) 1 mikki PO Q2H PRN PRN Reason: Sore Throat Trazodone HCl (Desyrel) 100 mg PO [facility] Last Admin: 05/25/18 20:07 Dose: 100 mg
[2018-05-26] MEDS: Simvastatin 5 MG TAB PO SCH (22:02)
[2018-05-26] MEDS: traZODone HCl 50 MG TAB PO SCH (22:14)
[2018-05-27] MEDS: HumaLOG 300 UNITS/3 ML VIAL SC PRN ×2 (06:18→12:03)
[2018-05-27] MEDS ORDERED: HYDROcodone/Acetaminophen 10/325 mg Tablet PO PRN (07:47)
[2018-05-27] MEDS: Enoxaparin Sodium 40 MG/0.4 ML SYRINGE SC SCH (08:37)
[2018-05-27] MEDS: Amlodipine 10 MG TAB PO SCH (08:38)
[2018-05-27] MEDS: Docusate 100 MG CAP PO SCH ×2 (08:38→21:12)
[2018-05-27] MEDS: Alogliptin 25 MG TAB PO SCH (08:38)
[2018-05-27] MEDS: Losartan 25 MG TAB PO SCH (08:38)
[2018-05-27] MEDS: Carvedilol 6.25 MG TAB PO SCH ×2 (08:38→21:10)
[2018-05-27] MEDS: Gabapentin 300 MG CAP PO SCH ×3 (08:39→21:23)
[2018-05-27] MEDS: metFORMIN 500 MG TAB PO SCH ×2 (08:39→18:00)
[2018-05-27] MEDS: Famotidine 20 MG TAB PO SCH ×2 (08:39→21:11)
[2018-05-27] MEDS: cloNIDine 0.2 MG TAB PO SCH ×2 (08:39→21:11)
[2018-05-27] MEDS: Glimepiride 4 MG TAB PO SCH ×2 (08:39→21:11)
[2018-05-27] MEDS: guaiFENesin ER 600 MG TAB PO SCH ×2 (08:39→21:12)
[2018-05-27] MEDS: hydrALAZINE 25 MG TAB PO SCH ×2 (08:39→21:10)
[2018-05-27] MEDS: HumuLIN 70/30 (300 UNITS/3 ML VIAL) SC SCH ×3 (08:40→18:00)
[2018-05-27] MEDS: Furosemide 20 MG TAB PO SCH ×2 (08:40→21:11)
[2018-05-27] MEDS: Fenofibrate 48 MG TAB PO SCH (08:49)
[2018-05-27] MEDS: Mometasone/Formoterol 120 PUFF INHALER INH SCH ×2 (10:50→19:38)
--- NOTE | 2018-05-27 11:02 | PDOC.PN ---
- Subjective Encounter Start Date: 05/27/18 Encounter Start Time: 09:10 Patient seen and examined. No new complaints. No overnight events - Objective Resuscitation Status - Order Detail: 05/25/18 07:23 Resuscitation Status Routine Resuscitation Status: FULL: Full Resuscitation MAR Reviewed: Yes Vital Signs & Weight: Vital Signs (12 hours) Temp Pulse Resp BP BP BP Pulse Ox 05/27/18 10:51 80 16 97 05/27/18 08:39 82 120/70 05/27/18 08:38 82 120/70 05/27/18 08:36 96 05/27/18 08:00 98.6 F 82 20 120/70 96 05/27/18 00:00 98.4 F 89 20 118/55 L 92 L 05/26/18 23:56 95 16 92 L Weight Weight 172 lb I&O: 05/26/18 05/27/18 05/28/18 06:59 06:59 06:59 Intake Total 480 1280 Balance 480 1280 Result Diagrams: 05/26/18 07:14 05/26/18 07:14 Additional Labs: Accuchecks 05/27/18 05/26/18 05/26/18 04:38 19:34 17:00 POC Glucose 391 H 301 H 78 05/26/18 05/26/18 16:14 11:16 POC Glucose 61 L 331 H Phys Exam - Physical Examination Constitutional: NAD HEENT: PERRLA, moist MMs, sclera anicteric Neck: no JVD, supple Respiratory: no rales, wheezing present Cardiovascular: RRR, no significant murmur, no rub Gastrointestinal: soft, non-tender, no distention, positive bowel sounds Musculoskeletal: no edema, pulses present Neurological: non-focal, normal sensation, moves all 4 limbs Lymphatic: no nodes Psychiatric: normal affect, A&O x 3 Skin: no rash, normal turgor Dx/Plan (1) Acute on chronic respiratory failure with hypoxemia Code(s): J96.21 - ACUTE AND CHRONIC RESPIRATORY FAILURE WITH HYPOXIA Status: Acute Comment: Secondary to CHF exacerbation (2) Chronic obstructive pulmonary disease with acute exacerbation Code(s): J44.1 - CHRONIC OBSTRUCTIVE PULMONARY DISEASE W (ACUTE) EXACERBATION Status: Acute (3) HTN (hypertension) Code(s): I10 - ESSENTIAL (PRIMARY) HYPERTENSION Status: Chronic (4) Obesity (BMI 30.0-34.9) Code(s): E66.9 - OBESITY, UNSPECIFIED Status: Chronic (5) Tobacco abuse Code(s): Z72.0 - TOBACCO USE Status: Chronic Comment: (6) Diabetes type 2, uncontrolled Code(s): E11.65 - TYPE 2 DIABETES MELLITUS WITH HYPERGLYCEMIA Status: Chronic - Plan cont current plan of care, continue antibiotics, respiratory therapy * medication reviewed as below * symptomatic treatment * continue levaquin * continue respiratory therapy * expecting discharge tomorrow. Review of Systems - Review of Systems ENT: negative: Ear Pain, Ear Discharge, Nose Pain, Nose Discharge, Nose Congestion, Mouth Pain, Mouth Swelling, Throat Pain, Throat Swelling, Other Respiratory: negative: Cough, Dry, Shortness of Breath, Hemoptysis, SOB with Excertion, Pleuritic Pain, Sputum, Wheezing Cardiovascular: negative: chest pain, palpitations, orthopnea, paroxysmal nocturnal dyspnea, edema, light headedness, other Gastrointestinal: negative: Nausea, Vomiting, Abdominal Pain, Diarrhea, Constipation, Melena, Hematochezia, Other Genitourinary: negative: Dysuria, Frequency, Incontinence, Hematuria, Retention , Other Musculoskeletal: negative: Neck Pain, Shoulder Pain, Arm Pain, Back Pain, Hand Pain, Leg Pain, Foot Pain, Other - Medications/Allergies Allergies/Adverse Reactions: Allergies Allergy/AdvReac Type Severity Reaction Status Date / Time No Known Allergies Allergy Verified 05/25/18 17:52 Medications: Current Medications Acetaminophen (Tylenol) 650 mg PO Q4H PRN PRN Reason: Headache/Fever/Mild Pain (1-3) Hydrocodone Bitart/Acetaminophen ([place] 5/325) 1 tab PO Q4H PRN PRN Reason: Moderate Pain (4-6) Hydrocodone Bitart/Acetaminophen ([place] 10/325) 1 tab PO Q6H PRN PRN Reason: Pain Albuterol/Ipratropium (Duoneb) 3 ml NEB [id number] [facility] Last Admin: 05/27/18 10:51 Dose: 3 ml Alogliptin Benzoate (Alogliptin) 25 mg PO DAILY [facility] Last Admin: 05/27/18 08:38 Dose: 25 mg Amlodipine Besylate (Norvasc) 10 mg PO DAILY [facility] Last Admin: 05/27/18 08:38 Dose: 10 mg Artificial Tears (Tears Naturale) 2 drop EA EYE PRN PRN PRN Reason: Dry Eyes Bisacodyl (Dulcolax) 10 mg PO DAILYPRN PRN PRN Reason: Constipation Bisacodyl (Dulcolax) 10 mg [place] DAILYPRN PRN PRN Reason: Constipation Calcium Carbonate (Tums) 1,000 mg PO Q4H PRN PRN Reason: Heartburn or Indigestion Carvedilol (Coreg) 6.25 mg PO BID [facility] Last Admin: 05/27/18 08:38 Dose: 6.25 mg Clonidine (Catapres) 0.2 mg PO BID [facility] Last Admin: 05/27/18 08:39 Dose: 0.2 mg Dextrose/Water (Dextrose 50%) 25 gm SLOW IVP PRN PRN PRN Reason: Hypoglycemia Docusate Sodium (Colace) 100 mg PO BID [facility] Last Admin: 05/27/18 08:38 Dose: Not Given Enoxaparin Sodium (Lovenox) 40 mg SC 0900 [facility] Last Admin: 05/27/18 08:37 Dose: 40 mg Famotidine (Pepcid) 20 mg PO BID [facility] Last Admin: 05/27/18 08:39 Dose: 20 mg Fenofibrate (Tricor) 48 mg PO DAILY [facility] Last Admin: 05/27/18 08:49 Dose: Not Given Furosemide (Lasix) 20 mg PO BID [facility] Last Admin: 05/27/18 08:40 Dose: 20 mg Gabapentin (Neurontin) 300 mg PO TID [facility] Last Admin: 05/27/18 08:39 Dose: 300 mg Glimepiride (Amaryl) 4 mg PO BID [facility] Last Admin: 05/27/18 08:39 Dose: 4 mg Glucagon (Glucagon) 1 mg IM PRN PRN PRN Reason: Hypoglycemia Guaifenesin (Mucinex) 600 mg PO Q12HR [facility] Last Admin: 05/27/18 08:39 Dose: 600 mg Guaifenesin (Robitussin Sf) 200 mg PO Q4H PRN PRN Reason: Cough Hydralazine HCl (Apresoline) 10 mg SLOW IVP Q4H PRN PRN Reason: SBP > 180 and HR < 70 Hydralazine HCl (Apresoline) 50 mg PO BID [facility] Last Admin: 05/27/18 08:39 Dose: 50 mg Levofloxacin 500 mg/ Device 100 mls @ 100 mls/hr IVPB 0800 [facility] Last Admin: 05/27/18 08:41 Dose: 100 mls Dextrose/Water (D5w) 1,000 mls @ 0 mls/hr IV .Q0M PRN PRN Reason: Hypoglycemia Insulin Human Isoph/Insulin Regular (Humulin 70/30) 10 units SC [facility] Last Admin: 05/27/18 08:40 Dose: 10 unit Insulin Human Lispro (Humalog) 0 units SC .MODERATE SLIDING SC PRN PRN Reason: Moderate Correctional Scale Last Admin: 05/27/18 06:18 Dose: 10 unit Insulin Human Lispro (Humalog) 0 units SC .BEDTIME SLIDING SC PRN PRN Reason: Bedtime Correctional Scale Loperamide HCl (Imodium) 2 mg PO PRN PRN PRN Reason: Diarrhea/Loose Stools Loratadine (Claritin) 10 mg PO DAILYPRN PRN PRN Reason: Sinus Symptoms Losartan Potassium (Cozaar) 100 mg PO DAILY [facility] Last Admin: 05/27/18 08:38 Dose: 100 mg Metformin HCl (Glucophage) 1,000 mg PO BID-[facility] Last Admin: 05/27/18 08:39 Dose: 1,000 mg Methylprednisolone Sodium Succinate (Solu-Medrol) 20 mg IVP Q8HR [facility] Last Admin: 05/27/18 06:14 Dose: 20 mg Mineral Oil/White Petrolatum (Eucerin Cream) 0 gm TOP BIDPRN PRN PRN Reason: Dry Skin Mirtazapine (Remeron) 15 mg PO [facility] Mometasone Furoate/Formoterol Fumar (Dulera 200 Mcg/5 Mcg Inhaler) 2 puff INH BID-RT [facility] Last Admin: 05/27/18 10:50 Dose: Not Given Ondansetron HCl (Zofran Odt) 4 mg PO Q6H PRN PRN Reason: Nausea/Vomiting Ondansetron HCl (Zofran) 4 mg IVP Q6H PRN PRN Reason: Nausea/Vomiting Senna/Docusate Sodium (Senokot S) 2 tab PO BID PRN PRN Reason: Constipation Sertraline HCl (Zoloft) 100 mg PO DAILY [facility] Last Admin: 05/27/18 08:39 Dose: 100 mg Simvastatin (Zocor) 10 mg PO [facility] Last Admin: 05/26/18 22:02 Dose: 10 mg Sodium Chloride ([place] Nasal [place] 0.65%) 0 ml EA NARE QIDPRN PRN PRN Reason: Nasal Congestion Sodium Chloride (Flush - Normal Saline) 10 ml IVF Q12HR [facility] Last Admin: 05/27/18 08:41 Dose: 10 ml Sodium Chloride (Flush - Normal Saline) 10 ml IVF PRN PRN PRN Reason: Saline Flush Throat Lozenges (Cepastat Lozenges) 1 mikki PO Q2H PRN PRN Reason: Sore Throat Trazodone HCl (Desyrel) 100 mg PO [facility] Last Admin: 05/26/18 22:14 Dose: 100 mg
[2018-05-27] MEDS ORDERED: Mirtazapine 15 MG TAB PO SCH (21:00)
[2018-05-27] MEDS: Simvastatin 5 MG TAB PO SCH (21:09)
[2018-05-27] MEDS: traZODone HCl 50 MG TAB PO SCH (21:09)
[2018-05-28] MEDS: HumaLOG 300 UNITS/3 ML VIAL SC PRN (05:15)
[2018-05-28] MEDS: Mometasone/Formoterol 120 PUFF INHALER INH SCH (06:20)
[2018-05-28 08:20] LABS: #Lymphocytes 0.9 thou/uL (1.20-3.40); #Monocytes 0.6 thou/uL (0.11-0.59); #Neutrophils 12.2 thou/uL (1.40-6.50); %Basophils 0.2 % (0.0-1.0); %Eosinophils 0.1 % (0.0-10.0); %Lymphocytes 6.7 % (21.0-51.0); %Neutrophils 89.1 % (42.0-75.0); Hemoglobin 13.3 g/dL (12.0-16.0); Mean Corpuscular Hemoglobin 27.7 pg (27.0-31.0); Mean Corpuscular Volume 89.5 fL (78.0-98.0); Mean Platelet Volume 9.3 fL (7.4-10.4); Platelet Count 222 thou/uL (130-400); RBC Distribution Width 13.5 % (11.5-14.5); Red Blood Cell (RBC) Count 4.81 mill/uL (4.20-5.40); White Blood Cell (WBC) Count 13.7 thou/uL (4.8-10.8)
[2018-05-28] MEDS: HumuLIN 70/30 (300 UNITS/3 ML VIAL) SC SCH (08:37)
[2018-05-28] MEDS: Losartan 25 MG TAB PO SCH (08:38)
[2018-05-28] MEDS: Carvedilol 6.25 MG TAB PO SCH (08:38)
[2018-05-28] MEDS: Alogliptin 25 MG TAB PO SCH (08:38)
[2018-05-28] MEDS: metFORMIN 500 MG TAB PO SCH (08:39)
[2018-05-28] MEDS: Docusate 100 MG CAP PO SCH (08:39)
[2018-05-28] MEDS: guaiFENesin ER 600 MG TAB PO SCH (08:39)
[2018-05-28] MEDS: Fenofibrate 48 MG TAB PO SCH (08:39)
[2018-05-28] MEDS: Furosemide 20 MG TAB PO SCH (08:39)
[2018-05-28] MEDS: cloNIDine 0.2 MG TAB PO SCH (08:39)
[2018-05-28] MEDS: Glimepiride 4 MG TAB PO SCH (08:40)
[2018-05-28] MEDS: Famotidine 20 MG TAB PO SCH (08:40)
[2018-05-28] MEDS: Enoxaparin Sodium 40 MG/0.4 ML SYRINGE SC SCH (08:40)
[2018-05-28 08:41] LABS: Anion Gap 15 mmol/L (10-20); BUN (Urea Nitrogen) 40 mg/dL (9.8-20.1); Calc. Creatinine Clearance 59 mL/min (70-130); Calcium 10.3 mg/dL (7.8-10.44); Carbon Dioxide 29 mmol/L (23-31); Chloride 96 mmol/L (98-107); Estimated GFR-MDRD 57; Glucose 285 mg/dL (80-115); Potassium 4.4 mmol/L (3.5-5.1); Sodium 136 mmol/L (136-145)
[2018-05-28] MEDS: hydrALAZINE 25 MG TAB PO SCH (08:42)
[2018-05-28] MEDS: Amlodipine 10 MG TAB PO SCH (08:42)
--- NOTE | 2018-05-28 09:52 | PDOC.PN ---
- Subjective Encounter Start Date: 05/28/18 Encounter Start Time: 09:00 Patient seen and examined. No new complaints. No overnight events - Objective Resuscitation Status - Order Detail: 05/25/18 07:23 Resuscitation Status Routine Resuscitation Status: FULL: Full Resuscitation MAR Reviewed: Yes Vital Signs & Weight: Vital Signs (12 hours) Temp Pulse Resp BP BP Pulse Ox 05/28/18 08:42 82 05/28/18 08:39 113/57 L 05/28/18 08:38 113/57 L 05/28/18 07:56 98.4 F 82 18 107/65 90 L 05/28/18 06:18 76 18 97 05/27/18 22:12 74 16 95 Weight Weight 172 lb I&O: 05/27/18 05/28/18 05/29/18 06:59 06:59 06:59 Intake Total 1280 850 Balance 1280 850 Result Diagrams: 05/28/18 08:01 05/28/18 08:01 Additional Labs: Accuchecks 05/28/18 05/27/18 05/27/18 05:12 21:19 16:14 POC Glucose 253 H 172 H 80 05/27/18 11:05 POC Glucose 358 H Phys Exam - Physical Examination Constitutional: NAD HEENT: PERRLA, moist MMs, sclera anicteric Neck: no JVD, supple Respiratory: no wheezing, no rales, no rhonchi, clear to auscultation bilateral Cardiovascular: RRR, no significant murmur, no rub Gastrointestinal: soft, non-tender, no distention, positive bowel sounds Musculoskeletal: no edema, pulses present Neurological: non-focal, normal sensation Lymphatic: no nodes Psychiatric: normal affect, A&O x 3 Skin: no rash, normal turgor Dx/Plan (1) Acute on chronic respiratory failure with hypoxemia Code(s): J96.21 - ACUTE AND CHRONIC RESPIRATORY FAILURE WITH HYPOXIA Status: Acute Comment: Secondary to CHF exacerbation (2) Chronic obstructive pulmonary disease with acute exacerbation Code(s): J44.1 - CHRONIC OBSTRUCTIVE PULMONARY DISEASE W (ACUTE) EXACERBATION Status: Acute (3) HTN (hypertension) Code(s): I10 - ESSENTIAL (PRIMARY) HYPERTENSION Status: Chronic (4) Obesity (BMI 30.0-34.9) Code(s): E66.9 - OBESITY, UNSPECIFIED Status: Chronic (5) Tobacco abuse Code(s): Z72.0 - TOBACCO USE Status: Chronic Comment: (6) Diabetes type 2, uncontrolled Code(s): E11.65 - TYPE 2 DIABETES MELLITUS WITH HYPERGLYCEMIA Status: Chronic - Plan cont current plan of care, continue antibiotics, respiratory therapy * medication reviewed as below * symptomatic treatment * see discharge haroon. Review of Systems - Review of Systems ENT: negative: Ear Pain, Ear Discharge, Nose Pain, Nose Discharge, Nose Congestion, Mouth Pain, Mouth Swelling, Throat Pain, Throat Swelling, Other Respiratory: negative: Cough, Dry, Shortness of Breath, Hemoptysis, SOB with Excertion, Pleuritic Pain, Sputum, Wheezing Cardiovascular: negative: chest pain, palpitations, orthopnea, paroxysmal nocturnal dyspnea, edema, light headedness, other Gastrointestinal: negative: Nausea, Vomiting, Abdominal Pain, Diarrhea, Constipation, Melena, Hematochezia, Other Genitourinary: negative: Dysuria, Frequency, Incontinence, Hematuria, Retention , Other Musculoskeletal: negative: Neck Pain, Shoulder Pain, Arm Pain, Back Pain, Hand Pain, Leg Pain, Foot Pain, Other - Medications/Allergies Allergies/Adverse Reactions: Allergies Allergy/AdvReac Type Severity Reaction Status Date / Time No Known Allergies Allergy Verified 05/25/18 17:52 Medications: Current Medications Acetaminophen (Tylenol) 650 mg PO Q4H PRN PRN Reason: Headache/Fever/Mild Pain (1-3) Hydrocodone Bitart/Acetaminophen ([place] 5/325) 1 tab PO Q4H PRN PRN Reason: Moderate Pain (4-6) Hydrocodone Bitart/Acetaminophen ([place] 10/325) 1 tab PO Q6H PRN PRN Reason: Pain Albuterol/Ipratropium (Duoneb) 3 ml NEB [id number] [facility] Last Admin: 05/28/18 06:18 Dose: 3 ml Alogliptin Benzoate (Alogliptin) 25 mg PO DAILY [facility] Last Admin: 05/28/18 08:38 Dose: 25 mg Amlodipine Besylate (Norvasc) 10 mg PO DAILY [facility] Last Admin: 05/28/18 08:42 Dose: Not Given Artificial Tears (Tears Naturale) 2 drop EA EYE PRN PRN PRN Reason: Dry Eyes Bisacodyl (Dulcolax) 10 mg PO DAILYPRN PRN PRN Reason: Constipation Bisacodyl (Dulcolax) 10 mg [place] DAILYPRN PRN PRN Reason: Constipation Calcium Carbonate (Tums) 1,000 mg PO Q4H PRN PRN Reason: Heartburn or Indigestion Carvedilol (Coreg) 6.25 mg PO BID [facility] Last Admin: 05/28/18 08:38 Dose: 6.25 mg Clonidine (Catapres) 0.2 mg PO BID [facility] Last Admin: 05/28/18 08:39 Dose: 0.2 mg Dextrose/Water (Dextrose 50%) 25 gm SLOW IVP PRN PRN PRN Reason: Hypoglycemia Docusate Sodium (Colace) 100 mg PO BID [facility] Last Admin: 05/28/18 08:39 Dose: Not Given Enoxaparin Sodium (Lovenox) 40 mg SC 09 [facility] Last Admin: 05/28/18 08:40 Dose: Not Given Famotidine (Pepcid) 20 mg PO BID [facility] Last Admin: 05/28/18 08:40 Dose: 20 mg Fenofibrate (Tricor) 48 mg PO DAILY [facility] Last Admin: 05/28/18 08:39 Dose: 48 mg Furosemide (Lasix) 20 mg PO BID [facility] Last Admin: 05/28/18 08:39 Dose: 20 mg Gabapentin (Neurontin) 300 mg PO TID [facility] Last Admin: 05/27/18 21:23 Dose: 300 mg Glimepiride (Amaryl) 4 mg PO BID [facility] Last Admin: 05/28/18 08:40 Dose: 4 mg Glucagon (Glucagon) 1 mg IM PRN PRN PRN Reason: Hypoglycemia Guaifenesin (Mucinex) 600 mg PO Q12HR [facility] Last Admin: 05/28/18 08:39 Dose: 600 mg Guaifenesin (Robitussin Sf) 200 mg PO Q4H PRN PRN Reason: Cough Hydralazine HCl (Apresoline) 10 mg SLOW IVP Q4H PRN PRN Reason: SBP > 180 and HR < 70 Hydralazine HCl (Apresoline) 50 mg PO BID [facility] Last Admin: 05/28/18 08:42 Dose: Not Given Levofloxacin 500 mg/ Device 100 mls @ 100 mls/hr IVPB 0800 [facility] Last Admin: 05/28/18 08:40 Dose: 100 mls Dextrose/Water (D5w) 1,000 mls @ 0 mls/hr IV .Q0M PRN PRN Reason: Hypoglycemia Insulin Human Isoph/Insulin Regular (Humulin 70/30) 10 units SC AC [facility] Last Admin: 05/28/18 08:37 Dose: 10 unit Insulin Human Lispro (Humalog) 0 units SC .MODERATE SLIDING SC PRN PRN Reason: Moderate Correctional Scale Last Admin: 05/28/18 05:15 Dose: 6 unit Insulin Human Lispro (Humalog) 0 units SC .BEDTIME SLIDING SC PRN PRN Reason: Bedtime Correctional Scale Loperamide HCl (Imodium) 2 mg PO PRN PRN PRN Reason: Diarrhea/Loose Stools Loratadine (Claritin) 10 mg PO DAILYPRN PRN PRN Reason: Sinus Symptoms Losartan Potassium (Cozaar) 100 mg PO DAILY [facility] Last Admin: 05/28/18 08:38 Dose: 100 mg Metformin HCl (Glucophage) 1,000 mg PO BID-[facility] Last Admin: 05/28/18 08:39 Dose: 1,000 mg Methylprednisolone Sodium Succinate (Solu-Medrol) 20 mg IVP Q8HR [facility] Last Admin: 05/28/18 05:11 Dose: 20 mg Mineral Oil/White Petrolatum (Eucerin Cream) 0 gm TOP BIDPRN PRN PRN Reason: Dry Skin Mirtazapine (Remeron) 15 mg PO [facility] Last Admin: 05/27/18 21:09 Dose: 15 mg Mometasone Furoate/Formoterol Fumar (Dulera 200 Mcg/5 Mcg Inhaler) 2 puff INH BID-RT [facility] Last Admin: 05/28/18 06:20 Dose: 2 puff Ondansetron HCl (Zofran Odt) 4 mg PO Q6H PRN PRN Reason: Nausea/Vomiting Ondansetron HCl (Zofran) 4 mg IVP Q6H PRN PRN Reason: Nausea/Vomiting Senna/Docusate Sodium (Senokot S) 2 tab PO BID PRN PRN Reason: Constipation Sertraline HCl (Zoloft) 100 mg PO DAILY [facility] Last Admin: 05/28/18 08:39 Dose: 100 mg Simvastatin (Zocor) 10 mg PO [facility] Last Admin: 05/27/18 21:09 Dose: 10 mg Sodium Chloride ([place] Nasal [place] 0.65%) 0 ml EA NARE QIDPRN PRN PRN Reason: Nasal Congestion Sodium Chloride (Flush - Normal Saline) 10 ml IVF Q12HR [facility] Last Admin: 05/28/18 08:40 Dose: 10 ml Sodium Chloride (Flush - Normal Saline) 10 ml IVF PRN PRN PRN Reason: Saline Flush Throat Lozenges (Cepastat Lozenges) 1 mikki PO Q2H PRN PRN Reason: Sore Throat Trazodone HCl (Desyrel) 100 mg PO HS [facility] Last Admin: 05/27/18 21:09 Dose: 100 mg
[2018-05-28 10:34] VITALS: BP 132/57; TEMP 98.1
--- NOTE | 2018-05-28 11:18 | DIS ---
DATE OF ADMISSION: 05/25/2018 DATE OF DISCHARGE: 05/28/2018 PRIMARY CARE PHYSICIAN: Dr. Maged Ventura MD. DISCHARGE DISPOSITION: Home with home health. PRIMARY DISCHARGE DIAGNOSES: 1. Acute on chronic respiratory failure with hypoxia. 2. Chronic obstructive pulmonary disease exacerbation. SECONDARY DISCHARGE DIAGNOSES: Tobacco abuse disorder, obesity with BMI 31, hypertension, diabetes type 2, anxiety and depression, COPD, chronic respiratory failure with home oxygen. PRIMARY PROCEDURE/OPERATION: None. RADIOLOGICAL INVESTIGATION: Chest x-ray was unremarkable. CT angio was negative for PE. SIGNIFICANT LABORATORY DATA: WBC 13.7, hemoglobin 13.3, platelet 222. D-dimer 0.56. Sodium 136, potassium 4.4, BUN 40, creatinine 1.16, calcium 10.3. Urinalysis unremarkable. Blood culture negative. Influenza negative. DISCHARGE MEDICATIONS: New medication; prednisone 20 mg p.o. b.i.d. for 7 days, Dulera two puff inhalation b.i.d., hydralazine 50 mg p.o. b.i.d., Mucinex 600 mg b.i.d., Tylenol 650 mg q.4 hourly p.r.n., trazodone 100 mg p.o. at bedtime, Januvia 100 mg daily, Zocor 10 mg p.o. at bedtime, Zoloft 100 mg p.o. daily, Remeron 15 mg p.o. at bedtime, metformin 1000 mg p.o. b.i.d., losartan 100 mg daily, DuoNeb q.6 hourly, Amaryl 4 mg b.i.d., gabapentin 300 mg t.i.d., Lasix 80 mg daily, Tricor 48 mg p.o. daily, clonidine 0.2 mg b.i.d., amlodipine 10 mg daily, [place] 1 tablet q.6 hourly p.r.n. CONTRAINDICATION: None. CODE STATUS: Full code. INPATIENT COMPUTER METEOROLOGIST: None. ALLERGIES: NO KNOWN DRUG ALLERGIES. DISCHARGE PLAN: Posthospital, the patient will follow up with primary care physician in one week. HOSPITAL COURSE: A 68-year-old female, who was admitted by me on 05/25/2018. Please see my HPI for further details. On admission, the patient was having increasing shortness of breath, increasing cough. She was slightly hypoxic than her baseline. She was suffering from acute on chronic respiratory failure secondary to COPD exacerbation. She was admitted to medical floor. She was treated optimally with respiratory therapy and empiric antibiotic therapy and steroid. With this therapy, the patient's condition significantly improved. By the time of discharge, she was feeling up to her baseline level. She was able to ambulate by herself and tolerating p.o. well. She was able to talk in full sentence. She had a slightly elevated D-dimer and that is why she had CT angio which was negative for PE. Upon discharge we prescribed prednisone and Dulera inhaler. Rest of her medications will be continued as per previous. She did not require any antibiotic therapy upon discharge. The patient is seen and examined at bedside today. Please see my progress note from today for further detail. Job ID: [id number]
== END 2018-05-28 10:49 | disposition home health service (06) | DRG 190 ==
LOC: ERS 01:33 → ERHOLD 05:25 → 3SE 15:27 → ERHOLD 16:20 → T4-A 17:34
PROVIDERS: ADMIT Family Medicine; ATTEND Family Medicine
DX: J44.1 Chronic obstructive pulmonary disease with (acute) exacerbation (principal); J96.21 Acute and chronic respiratory failure with hypoxia; I50.32 Chronic diastolic (congestive) heart failure; I13.0 Hypertensive heart and chronic kidney disease with heart failure and stage 1 through stage 4 chronic kidney disease, or unspecified chronic kidney disease; E66.9 Obesity, unspecified; E78.5 Hyperlipidemia, unspecified; E11.65 Type 2 diabetes mellitus with hyperglycemia; F41.9 Anxiety disorder, unspecified; F31.9 Bipolar disorder, unspecified; N18.3 Chronic kidney disease, stage 3 (moderate); F17.210 Nicotine dependence, cigarettes, uncomplicated; R59.0 Localized enlarged lymph nodes; Z79.84 Long term (current) use of oral hypoglycemic drugs; Z68.31 Body mass index [BMI] 31.0-31.9, adult; Z79.899 Other long term (current) drug therapy; Z98.890 Other specified postprocedural states; Z98.51 Tubal ligation status; Z90.710 Acquired absence of both cervix and uterus; Z99.81 Dependence on supplemental oxygen
CPT/HCPCS: 36415; 36416; 71045; 71275; 80048; 80053; 81001; 83690; 83880; 84484; 85025; 85379; 87040; 87804; 93005; 94640; 94664; 96365; 96375; J0696; J1650; J1940; J1956; J2920; J2930; J7620

== ENCOUNTER 2018-07-01 19:59 | Inpatient (IN) | payer MEDICARE, MEDICAID ==
[2018-07-01] MEDS ORDERED: Albuterol Sulfate 2.5 mg/3 ml Neb ONE (20:08)
[2018-07-01] MEDS ORDERED: Albuterol Sulfate 2.5 mg/0.5 ml Neb ONE (20:09)
[2018-07-01 20:27] LABS: #Basophils 0.1 thou/uL (0.0-0.2); #Eosinphils 0.1 thou/uL (0.0-0.7); #Lymphocytes 2.5 thou/uL (1.20-3.40); #Monocytes 0.6 thou/uL (0.11-0.59); #Neutrophils 7.7 thou/uL (1.40-6.50); %Basophils 0.8 % (0.0-1.0); %Eosinophils 1.1 % (0.0-10.0); %Lymphocytes 23.1 % (21.0-51.0); Hemoglobin 12.4 g/dL (12.0-16.0); Mean Corpuscular HGB CONC 31.2 g/dL (32.0-36.0); Mean Corpuscular Hemoglobin 28.4 pg (27.0-31.0); Platelet Count 308 thou/uL (130-400); RBC Distribution Width 13.9 % (11.5-14.5); Red Blood Cell (RBC) Count 4.38 mill/uL (4.20-5.40)
[2018-07-01] MEDS ORDERED: Magnesium 2 GM/50 ML 2 GM in Premix Bag 1 BAG IVPB SCH (20:30)
[2018-07-01 20:43] LABS: Actual Bicarbonate (HCO3a) 26.2 mEq/L (22-28); Analyzer IN Cardio ER; Base Excess (BEa) 0.6 mEq/L (-2.0 to +3.0); CO2 Tension 46.1 mmHg (35.0-45.0); Calcium, Ionized 1.19 mmol/L (1.12-1.30); Carboxyhemoglobin (COHb) 3.9 gm% (0.0-3.0); Hemoglobin (Hb) 12.3 g/dL (12.0-16.0); O2 Tension (PaO2) 75.8 mmHg (> 80.0); Potassium - ABG Lab 3.43 mmol/L (3.70-5.30); pH, Arterial 7.37 (7.35-7.45)
[2018-07-01 20:47] LABS: ALT (SGPT) 10 U/L (8-55); AST (SGOT) 22 U/L (5-34); Albumin 3.7 g/dL (3.4-4.8); Alkaline Phosphatase 85 U/L (40-150); Anion Gap 14 mmol/L (10-20); BUN (Urea Nitrogen) 7 mg/dL (9.8-20.1); Bilirubin, Total 0.4 mg/dL (0.2-1.2); Calc. Creatinine Clearance 0 mL/min (70-130); Calcium 9.5 mg/dL (7.8-10.44); Carbon Dioxide 25 mmol/L (23-31); Chloride 101 mmol/L (98-107); Estimated GFR-MDRD 73; Glucose 370 mg/dL (80-115); Magnesium 1.6 mg/dL (1.6-2.6); Potassium 3.7 mmol/L (3.5-5.1); Protein, Total 7.7 g/dL (6.0-8.3); Sodium 136 mmol/L (136-145)
--- NOTE | 2018-07-01 20:55 | RAD ---
PORTABLE CHEST: 07/01/18 HISTORY: Dyspnea. COMPARISON: 05/25/18 study. Heart size is borderline with atherosclerotic changes of the aorta. the lungs are clear of infiltrate s. No signs of failure. IMPRESSION: Borderline heart size. POS: [facility]
[2018-07-01 20:56] LABS: Puncture Site LRA
[2018-07-01 20:57] LABS: ALV-art Gradient 116.125 (0-20)
[2018-07-01 21:48] LABS: Bilirubin Negative (Negative); Blood, Urine Negative (Negative); Clarity CLEAR (Clear); Glucose, Urine (Dipstick) >=1000 mg/dL (Negative); Leukocyte Negative (Negative); Nitrite Negative (Negative); Protein, Urine (Dipstick) Negative (Neg-Trace); Specific Gravity, Urine 1.024 (1.002-1.036); pH, Urine 6.5 (5.0-9.0)
[2018-07-02] MEDS ORDERED: Ondansetron ODT 4 MG TAB PO PRN (00:26)
[2018-07-02] MEDS ORDERED: Ondansetron PF 4 MG/2 ML Vial IVP PRN (00:26)
[2018-07-02] MEDS ORDERED: methylPREDNISolone Sod Succ 40 MG VIAL ONE ×2 (00:30→05:43)
[2018-07-02] MEDS: methylPREDNISolone Sod Succ 40 MG VIAL IVP SCH ×4 (02:19→18:04)
[2018-07-02 03:35] LABS: #Lymphocytes 0.3 thou/uL (1.20-3.40); #Neutrophils 9.3 thou/uL (1.40-6.50); %Basophils 0.5 % (0.0-1.0); %Lymphocytes 3.2 % (21.0-51.0); %Monocytes 0.3 % (0.0-10.0); Hemoglobin 11.7 g/dL (12.0-16.0); Mean Corpuscular HGB CONC 31.9 g/dL (32.0-36.0); Mean Corpuscular Hemoglobin 28.8 pg (27.0-31.0); Mean Corpuscular Volume 90.4 fL (78.0-98.0); Mean Platelet Volume 9.1 fL (7.4-10.4); Platelet Count 275 thou/uL (130-400); Red Blood Cell (RBC) Count 4.05 mill/uL (4.20-5.40); White Blood Cell (WBC) Count 9.7 thou/uL (4.8-10.8)
[2018-07-02 03:51] LABS: Anion Gap 16 mmol/L (10-20); BUN (Urea Nitrogen) 10 mg/dL (9.8-20.1); Calc. Creatinine Clearance 0 mL/min (70-130); Calcium 9.2 mg/dL (7.8-10.44); Carbon Dioxide 24 mmol/L (23-31); Chloride 100 mmol/L (98-107); Estimated GFR-MDRD 78; Glucose 479 mg/dL (80-115); Potassium 3.8 mmol/L (3.5-5.1); Sodium 136 mmol/L (136-145)
[2018-07-02] MEDS ORDERED: Dextrose 5% in Water 1,000 ML IV PRN (04:17)
[2018-07-02] MEDS ORDERED: Dextrose 50% Abboject 50 ML SYRINGE IVP PRN (04:17)
--- NOTE | 2018-07-02 05:28 | HP ---
PRIMARY CARE DOCTOR: Dr. Maged Ventura. CODE STATUS: Full code. TIME OF EVALUATION: 11:00 p.m. CHIEF COMPLAINT: Worsening shortness of breath. HISTORY OF PRESENT ILLNESS: This is a 68-year-old female with past medical history of COPD, came to the hospital after having severe, gradually worsening shortness of breath with drop in saturation from baseline. No clear triggers. No alleviating factors. The patient reported that the symptoms have been present for the past few days, but really got worse yesterday. The patient needed BiPAP initially in the ER and had significant improvement after the initial approach. By the time of my examination, the patient was in nasal cannula. She is still tachycardic and tachypneic, but reported feeling better. REVIEW OF SYSTEMS: CONSTITUTIONAL: No fever or chills. The patient has generalized weakness. RESPIRATORY: The patient has cough with scant sputum production, severe shortness of breath as mentioned above. CARDIOVASCULAR: No chest pain. The patient has palpitation. GASTROINTESTINAL: No nausea. No vomiting, diarrhea, or abdominal pain. [employer] HE[employer]GER: No dizziness, headache, or feeling lightheaded. GENITOURINARY: No burning on urination. EXTREMITIES: No leg swelling. All other systems were reviewed and negative except for the findings mentioned above. PAST MEDICAL HISTORY: Positive for: 1. Hyperlipidemia. 2. COPD. 3. Chronic bronchitis. 4. Emphysema. 5. Diabetes. PAST SURGICAL HISTORY: 1. Partial hysterectomy. 2. Ear surgery. 3. Finger surgery. PSYCH HISTORY: No psych history except for anxiety. SOCIAL HISTORY: The patient smokes on a daily basis half pack per day. No alcohol use. No drug use. FAMILY HISTORY: Reviewed and noncontributory for current presentation. KNOWN ALLERGIES: No known drug allergies. REPORTED MEDICATIONS: 1. Glimepiride. 2. Amlodipine. 3. Carvedilol. 4. Clonidine. 5. Gabapentin. 6. Metformin. 7. Januvia. 8. Losartan. 9. Fenofibrate. 10. Sertraline. 11. Simvastatin. 12. Spiriva with inhaler. 13. Trazodone. 14. Hydralazine. 15. Baclofen. 16. Zoloft. PHYSICAL EXAMINATION: VITAL SIGNS: On presentation, blood pressure 176/132 with heart rate 113, respiratory rate was 18. Pain was 0/10. Oxygen saturation 97% on CPAP. GENERAL APPEARANCE: The patient is in mild distress due to respiratory distress, but reported feeling better. Alert, oriented. HEENT: Eyes, normal conjunctiva. Moist oral mucosa. Anicteric. No JVD. RESPIRATORY: Bilateral air entry decreased, scattered wheezing bilaterally. Symmetric expansion is decreased. CARDIOVASCULAR: The patient is tachycardic. Normal rhythm. No murmurs. No gallop. Bilateral leg edema. ABDOMEN: Soft. Normal bowel sounds. MUSCULOSKELETAL: Baseline range of motion and strength. SKIN: Warm, intact. No pallor. No rash. No redness. Peripheral pulses are present. Capillary refill seems to be intact. NEUROLOGIC: No evidence of any new focal weakness. Baseline speech. Cranial nerves seems to be intact. PSYCH: The patient is in good mood. No anxiety. Optimal judgment. IMAGING STUDIES: EKG was reviewed. The patient has sinus tachycardia at the rate of 114, NM 172, QRS 72, QT corrected 463. Chest x-ray was reviewed. The patient has borderline heart size. LABORATORY DATA: Labs were reviewed. The patient has a white count 9.7, hemoglobin 11.7, platelet count 275. ABG was done, pH 3.37, pCO2 of 46, PO2 of 75.8, who was on BiPAP and mechanical rate of 8 with inspired oxygen 35 and 10/5 for IPAP/EPAP. Chemistry; sodium 136, potassium 3.7, chloride 101, carbon dioxide 25, anion gap 14, BUN 7, creatinine 0.9, GFR 73, glucose 217 with early glucose 179, lactic acid 1.9 with calcium 9.5, magnesium 1.6, total bilirubin 0.4, AST 22, ALT 10, alkaline phosphatase is 85. Troponin was negative. Beta natriuretic peptide 135. ASSESSMENT AND PLAN: The patient will be placed in the hospital with following medical problems: 1. Chronic obstructive pulmonary disease exacerbation, severe: The patient needs BiPAP, but unable to give due to hypoxia and hypercarbic respiratory failure that is improving now. The patient tolerated nasal cannula, will continue nebs, steroids, nebulizers, and oxygen support. 2. Acute on chronic hypoxic respiratory failure. The patient is on BiPAP to recover from COPD exacerbation, she is improving now. Monitor closely. 3. Uncontrolled diabetes. Place the patient on sliding scale for optimal control. Reconcile home medications. 4. Deep venous thrombosis prophylaxis. 5. Hyperlipidemia. Low-cholesterol diet is advised, reconcile home medications. Job ID: [id number]
[2018-07-02] MEDS ORDERED: HumaLOG 300 UNITS/3 ML VIAL ONE (05:43)
[2018-07-02] MEDS ORDERED: Enoxaparin Sodium 40 MG/0.4 ML SYRINGE ONE (08:40)
[2018-07-02] MEDS: Insulin Glargine 10 UNITS in Pre-Filled Syringe 1 EACH SC SCH ×2 (09:07→22:16)
[2018-07-02] MEDS: Enoxaparin Sodium 40 MG/0.4 ML SYRINGE SC SCH (09:15)
[2018-07-02 16:38] VITALS: BMI 30.8
[2018-07-02] MEDS: Gabapentin 300 MG CAP PO SCH ×2 (16:49→21:20)
[2018-07-02] MEDS: Glimepiride 4 MG TAB PO SCH (18:04)
[2018-07-02] MEDS: HumaLOG 300 UNITS/3 ML VIAL SC PRN (18:11)
[2018-07-02] MEDS: Mometasone/Formoterol 120 PUFF INHALER INH SCH (19:39)
[2018-07-02] MEDS: guaiFENesin ER 600 MG TAB PO SCH (21:14)
[2018-07-02] MEDS: Simvastatin 5 MG TAB PO SCH (21:14)
[2018-07-02] MEDS: Mirtazapine 15 MG TAB PO SCH (21:14)
[2018-07-02] MEDS: cloNIDine 0.2 MG TAB PO SCH (21:15)
[2018-07-03] MEDS: methylPREDNISolone Sod Succ 40 MG VIAL IVP SCH ×4 (01:41→18:33)
[2018-07-03] MEDS: Glimepiride 4 MG TAB PO SCH ×2 (08:14→17:35)
[2018-07-03] MEDS: cloNIDine 0.2 MG TAB PO SCH ×2 (08:14→20:08)
[2018-07-03] MEDS: Gabapentin 300 MG CAP PO SCH ×3 (08:14→20:08)
[2018-07-03] MEDS: guaiFENesin ER 600 MG TAB PO SCH ×2 (08:14→20:09)
[2018-07-03] MEDS: Enoxaparin Sodium 40 MG/0.4 ML SYRINGE SC SCH (08:15)
[2018-07-03] MEDS: Fenofibrate 48 MG TAB PO SCH (08:15)
[2018-07-03] MEDS: Amlodipine 10 MG TAB PO SCH (08:15)
[2018-07-03] MEDS ORDERED: Amlodipine 5 MG TAB PO SCH (09:00)
[2018-07-03] MEDS: Insulin Glargine 10 UNITS in Pre-Filled Syringe 1 EACH SC SCH (10:24)
[2018-07-03] MEDS: HumaLOG 300 UNITS/3 ML VIAL SC PRN ×5 (10:25→21:00)
[2018-07-03] MEDS: Mometasone/Formoterol 120 PUFF INHALER INH SCH ×2 (11:15→18:23)
[2018-07-03 12:17] LABS: #Lymphocytes 0.5 thou/uL (1.20-3.40); #Monocytes 0.1 thou/uL (0.11-0.59); #Neutrophils 12.9 thou/uL (1.40-6.50); %Basophils 0.1 % (0.0-1.0); %Eosinophils 0.1 % (0.0-10.0); %Lymphocytes 3.8 % (21.0-51.0); %Monocytes 1.1 % (0.0-10.0); Hemoglobin 12.5 g/dL (12.0-16.0); Mean Corpuscular HGB CONC 30.9 g/dL (32.0-36.0); Mean Corpuscular Hemoglobin 27.8 pg (27.0-31.0); Mean Corpuscular Volume 90.1 fL (78.0-98.0); Mean Platelet Volume 9.3 fL (7.4-10.4); Platelet Count 278 thou/uL (130-400); RBC Distribution Width 13.9 % (11.5-14.5); Red Blood Cell (RBC) Count 4.48 mill/uL (4.20-5.40); White Blood Cell (WBC) Count 13.6 thou/uL (4.8-10.8)
[2018-07-03 12:35] LABS: Anion Gap 15 mmol/L (10-20); BUN (Urea Nitrogen) 18 mg/dL (9.8-20.1); Calc. Creatinine Clearance 67 mL/min (70-130); Calcium 10.3 mg/dL (7.8-10.44); Carbon Dioxide 28 mmol/L (23-31); Chloride 98 mmol/L (98-107); Estimated GFR-MDRD 70; Glucose 487 mg/dL (80-115); Potassium 4.9 mmol/L (3.5-5.1); Sodium 136 mmol/L (136-145)
[2018-07-03] MEDS ORDERED: Insulin Glargine 10 UNITS in Pre-Filled Syringe 1 EACH SC SCH (15:00)
[2018-07-03] MEDS ORDERED: Non-Formulary Item 1 EACH (Insulin Detemir [Levemir] 10 UNIT) SQ SCH (15:00)
--- NOTE | 2018-07-03 15:01 | PDOC.PN ---
- Subjective Encounter Start Date: 07/03/18 Encounter Start Time: 07:40 Pt seen for followup re: acute hypoxic respiratory failure. Says she feels better. - Objective Resuscitation Status - Order Detail: 07/02/18 00:26 Resuscitation Status Routine Resuscitation Status: FULL: Full Resuscitation MAR Reviewed: Yes Vital Signs & Weight: Vital Signs (12 hours) Temp Pulse Resp BP BP Pulse Ox 07/03/18 11:49 90 16 07/03/18 11:15 87 16 07/03/18 08:15 87 07/03/18 08:00 97.8 F 94 17 137/101 H 94 L 07/03/18 07:00 87 16 07/03/18 04:00 98 F 87 18 136/94 H 92 L Weight Weight 162 lb I&O: 07/02/18 07/03/18 07/04/18 06:59 06:59 06:59 Intake Total 480 Balance 480 Result Diagrams: 07/03/18 11:35 07/03/18 11:35 Additional Labs: Accuchecks 07/03/18 07/03/18 07/02/18 11:25 05:25 20:50 POC Glucose 453 H 475 H 215 H 07/02/18 17:13 POC Glucose 304 H EKG Reviewed by me: Yes (Tele: NSR) Phys Exam - Physical Examination Constitutional: NAD HEENT: moist MMs, sclera anicteric, oral pharynx no lesions, 2+ tonsils Neck: no nodes, no JVD, supple, full ROM Respiratory: wheezing present Cardiovascular: RRR, no rub S1, S2 Gastrointestinal: soft, non-tender, no distention, positive bowel sounds Neurological: moves all 4 limbs Psychiatric: normal affect, A&O x 3 Dx/Plan (1) Acute on chronic respiratory failure with hypoxemia Code(s): J96.21 - ACUTE AND CHRONIC RESPIRATORY FAILURE WITH HYPOXIA Status: Acute Comment: Secondary to COPD exacerbation (2) Chronic obstructive pulmonary disease with acute exacerbation Code(s): J44.1 - CHRONIC OBSTRUCTIVE PULMONARY DISEASE W (ACUTE) EXACERBATION Status: Acute Comment: Improving with oxygen, steroids, bronchodilators and antibiotics (3) Anxiety and depression Code(s): F41.9 - ANXIETY DISORDER, UNSPECIFIED; F32.9 - MAJOR DEPRESSIVE DISORDER, SINGLE EPISODE, UNSPECIFIED Status: Chronic Comment: mild depression, stable (4) Diabetes type 2, uncontrolled Code(s): E11.65 - TYPE 2 DIABETES MELLITUS WITH HYPERGLYCEMIA Status: Chronic Comment: continue accuchecks, start aggressive sliding scale, start lantus 10 units daily. Start metformin and glimepiride. (5) HTN (hypertension) Code(s): I10 - ESSENTIAL (PRIMARY) HYPERTENSION Status: Chronic Comment: Resume home antihypertensives, monitor vital signs and titrate antihypertensives as needed. (6) Tobacco abuse Code(s): Z72.0 - TOBACCO USE Status: Chronic Comment: counseled re; cessation, Start nicotine replacement therapy. - Plan * . Review of Systems - Review of Systems Constitutional: negative: fever, chills, sweats, weakness, malaise Respiratory: Cough, Dry, SOB with Excertion, Wheezing. negative: Shortness of Breath, Hemoptysis, Pleuritic Pain, Sputum Cardiovascular: negative: chest pain, palpitations, orthopnea, paroxysmal nocturnal dyspnea, edema, light headedness Gastrointestinal: negative: Nausea, Vomiting, Abdominal Pain, Diarrhea, Constipation, Melena, Hematochezia Genitourinary: negative: Dysuria, Frequency, Incontinence, Hematuria, Retention - Medications/Allergies Allergies/Adverse Reactions: Allergies Allergy/AdvReac Type Severity Reaction Status Date / Time No Known Allergies Allergy Verified 07/02/18 16:31 Medications: Current Medications Acetaminophen (Tylenol) 650 mg PO Q4H PRN PRN Reason: Headache/Fever/Mild Pain (1-3) Albuterol/Ipratropium (Duoneb) 3 ml NEB [id number] [facility] Last Admin: 07/03/18 11:49 Dose: 3 ml Alogliptin Benzoate (Alogliptin) 25 mg PO DAILY [facility] Amlodipine Besylate (Norvasc) 10 mg PO DAILY [facility] Last Admin: 07/03/18 08:15 Dose: 10 mg Clonidine (Catapres) 0.2 mg PO BID [facility] Last Admin: 07/03/18 08:14 Dose: 0.2 mg Dextrose/Water (Dextrose 50%) 25 gm IVP PRN PRN PRN Reason: HYPOGLYCEMIA PROTOCOL Enoxaparin Sodium (Lovenox) 40 mg SC 0900 [facility] Last Admin: 07/03/18 08:15 Dose: 40 mg Fenofibrate (Tricor) 48 mg PO DAILY [facility] Last Admin: 07/03/18 08:15 Dose: 48 mg Furosemide (Lasix) 80 mg PO DAILY [facility] Gabapentin (Neurontin) 300 mg PO TID [facility] Last Admin: 07/03/18 08:14 Dose: 300 mg Glimepiride (Amaryl) 4 mg PO BID-WM [facility] Last Admin: 07/03/18 08:14 Dose: 4 mg Glucagon (Glucagon) 1 mg IM PRN PRN PRN Reason: HYPOGLYCEMIA PROTOCOL Guaifenesin (Mucinex) 600 mg PO BID [facility] Last Admin: 07/03/18 08:14 Dose: 600 mg Hydralazine HCl (Apresoline) 50 mg PO BID [facility] Levofloxacin 750 mg/ Device 150 mls @ 100 mls/hr IVPB Q24HR [facility] Last Admin: 07/03/18 01:41 Dose: 150 mls Dextrose/Water (D5w) 1,000 mls @ 0 mls/hr IV INF PRN PRN Reason: HYPOGLYCEMIA PROTOCOL Insulin Glargine 10 units/ (Miscellaneous Medication) 0.1 mls @ 0 mls/[facility] Ins[facility] Human Lispro (Humalog) 0 units SC .AGGRESSIVE SLIDING PRN; Protocol PRN Reason: AGGRESSIVE SLIDING SCALE Last Admin: 07/03/18 13:11 Dose: 13 unit Losartan Potassium (Cozaar) 100 mg PO DAILY [facility] Metformin HCl (Glucophage) 1,000 mg PO BID-[facility] Methylprednisolone Sodium Succinate (Solu-Medrol) 40 mg IVP Q6HR [facility] Last Admin: 07/03/18 11:58 Dose: 40 mg Mirtazapine (Remeron) 15 mg PO [facility] Last Admin: 07/02/18 21:14 Dose: 15 mg Mometasone Furoate/Formoterol Fumar (Dulera 200 Mcg/5 Mcg Inhaler) 2 puff INH BID-RT [facility] Last Admin: 07/03/18 11:15 Dose: 2 puff Ondansetron HCl (Zofran Odt) 4 mg PO Q6H PRN PRN Reason: Nausea/Vomiting Ondansetron HCl (Zofran) 4 mg IVP Q6H PRN PRN Reason: Nausea/Vomiting Sertraline HCl (Zoloft) 100 mg PO DAILY [facility] Last Admin: 07/03/18 08:14 Dose: 100 mg Simvastatin (Zocor) 10 mg PO [facility] Last Admin: 07/02/18 21:14 Dose: 10 mg Sodium Chloride (Flush - Normal Saline) 10 ml IVF Q12HR [facility] Last Admin: 07/03/18 08:15 Dose: 10 ml Sodium Chloride (Flush - Normal Saline) 10 ml IVF PRN PRN PRN Reason: Saline Flush
[2018-07-03] MEDS ORDERED: Non-Formulary Item 1 EACH (Metformin Hcl [Metformin Hcl] 1,000 MG) PO SCH (17:00)
[2018-07-03] MEDS: metFORMIN 500 MG TAB PO SCH (17:34)
--- NOTE | 2018-07-03 19:39 | CON ---
DATE OF CONSULTATION: HISTORY OF PRESENT ILLNESS: Deja Gutierrez is a pleasant 68-year-old female with a history of COPD. Unfortunately, she continues to smoke. She is followed by Dr. Ventura. I do not find any record that we have seen her. She presented with complaints of progressive shortness of breath. Her daughter was at the bedside and actually helped with the history. When I saw her, she had just awakened from a nap. She says she is feeling better. PAST MEDICAL HISTORY: Remarkable for; 1. Liver disorder. 2. COPD. 3. Diabetes. PAST SURGICAL HISTORY: She has a has had a hysterectomy in the past. SOCIAL HISTORY: She is a half pack-a-day smoker. She is not a daily drinker. Does not use drugs. ALLERGIES: SHE HAS NO ALLERGIES REPORTED. MEDICATIONS: Prior to admission, she is on; 1. Glimepiride. 2. Amlodipine. 3. Coreg. 4. Catapres. 5. Gabapentin. 6. Metformin. 7. Januvia. 8. Losartan. 9. Fenofibrate. 10. Zoloft. 11. Simvastatin. 12. Spiriva. 13. Trazodone. 14. Hydralazine. 15. Baclofen. REVIEW OF SYSTEMS: Ten points otherwise negative. PHYSICAL EXAMINATION: VITAL SIGNS: She is afebrile, heart rate is 89, respiratory rate 16, oximetry is 93 on 3L, and blood pressure 142/68. GENERAL: She appears older than her age. HEENT: Her pupils are equal. Sclerae are anicteric. NECK: Supple. No lymphadenopathy. Trachea is midline. LUNGS: Remarkable for diffuse wheezes that are mild. HEART: Regular rhythm. S1 and S2 are normal. ABDOMEN: Soft and nontender. EXTREMITIES: Without clubbing, cyanosis, or edema. Feet are warm. LABORATORY DATA: White count 13.6, hemoglobin 12.5, and platelets 278. Sodium 136, potassium 4.9, chloride 98, bicarb 28, BUN 18, creatinine 0.96, and glucose 47. IMPRESSION: 1. Chronic obstructive pulmonary disease exacerbation. 2. Bronchitis. Reviewed her chest radiograph, I do not see any infiltrates. 3. Diabetes, aggravated by her steroids. 4. History of hypertension. 5. Ongoing tobacco use. PLAN: Continue steroids, antibiotics, and nebulized treatments, can be switched to p.o. antimicrobial therapy. Her dose of her steroids will be decreased and this may help with her glucose control. Job ID: [id number]
[2018-07-03] MEDS: hydrALAZINE 25 MG TAB PO SCH (20:07)
[2018-07-03] MEDS: Simvastatin 5 MG TAB PO SCH (20:07)
[2018-07-03] MEDS: Mirtazapine 15 MG TAB PO SCH (20:08)
[2018-07-04] MEDS: methylPREDNISolone Sod Succ 40 MG VIAL IVP SCH ×4 (00:21→16:56)
[2018-07-04] MEDS: HumaLOG 300 UNITS/3 ML VIAL SC PRN ×3 (06:20→19:55)
[2018-07-04] MEDS: Mometasone/Formoterol 120 PUFF INHALER INH SCH (07:09)
[2018-07-04 07:30] LABS: #Lymphocytes 0.5 thou/uL (1.20-3.40); #Monocytes 0.5 thou/uL (0.11-0.59); #Neutrophils 14.5 thou/uL (1.40-6.50); %Basophils 0.2 % (0.0-1.0); %Eosinophils 0.1 % (0.0-10.0); %Lymphocytes 3.2 % (21.0-51.0); %Monocytes 3.3 % (0.0-10.0); %Neutrophils 93.1 % (42.0-75.0); Hemoglobin 12.7 g/dL (12.0-16.0); Mean Corpuscular HGB CONC 31.3 g/dL (32.0-36.0); Mean Corpuscular Hemoglobin 28.7 pg (27.0-31.0); Mean Corpuscular Volume 91.9 fL (78.0-98.0); Mean Platelet Volume 9.6 fL (7.4-10.4); Platelet Count 275 thou/uL (130-400); RBC Distribution Width 14.1 % (11.5-14.5); Red Blood Cell (RBC) Count 4.44 mill/uL (4.20-5.40); White Blood Cell (WBC) Count 15.6 thou/uL (4.8-10.8)
[2018-07-04 07:51] LABS: Anion Gap 18 mmol/L (10-20); BUN (Urea Nitrogen) 21 mg/dL (9.8-20.1); Calc. Creatinine Clearance 76 mL/min (70-130); Calcium 10.1 mg/dL (7.8-10.44); Carbon Dioxide 21 mmol/L (23-31); Chloride 99 mmol/L (98-107); Estimated GFR-MDRD 78; Glucose 289 mg/dL (80-115); Potassium 5.1 mmol/L (3.5-5.1); Sodium 133 mmol/L (136-145)
[2018-07-04] MEDS ORDERED: Non-Formulary Item 1 EACH (Losartan Potassium [Losartan Potassium] 100 MG) PO SCH (09:00)
[2018-07-04] MEDS: Furosemide 80 MG TAB PO SCH (09:27)
[2018-07-04] MEDS: metFORMIN 500 MG TAB PO SCH ×2 (09:27→16:18)
[2018-07-04] MEDS: Losartan 25 MG TAB PO SCH (09:27)
[2018-07-04] MEDS: hydrALAZINE 25 MG TAB PO SCH ×2 (09:27→19:54)
[2018-07-04] MEDS: Alogliptin 25 MG TAB PO SCH (09:27)
[2018-07-04] MEDS: Gabapentin 300 MG CAP PO SCH ×3 (09:27→19:53)
[2018-07-04] MEDS: cloNIDine 0.2 MG TAB PO SCH ×2 (09:28→19:53)
[2018-07-04] MEDS: Enoxaparin Sodium 40 MG/0.4 ML SYRINGE SC SCH (09:28)
[2018-07-04] MEDS: Amlodipine 10 MG TAB PO SCH (09:28)
[2018-07-04] MEDS: guaiFENesin ER 600 MG TAB PO SCH ×2 (09:28→19:54)
[2018-07-04] MEDS: Fenofibrate 48 MG TAB PO SCH (09:28)
[2018-07-04] MEDS: Glimepiride 4 MG TAB PO SCH ×2 (09:28→16:18)
[2018-07-04] MEDS: Insulin Glargine 10 UNITS in Pre-Filled Syringe 1 EACH SC SCH ×2 (09:29→19:54)
[2018-07-04] MEDS: Nicotine 21 MG PATCH TD SCH (09:29)
[2018-07-04] MEDS: Acetaminophen 325 MG TAB PO PRN ×2 (10:46→16:18)
--- NOTE | 2018-07-04 14:25 | PDOC.PN ---
- Subjective Encounter Start Date: 07/04/18 Encounter Start Time: 10:20 Pt seen for followup re: acute on chronic hypoxic respiratory failure. - Objective Resuscitation Status - Order Detail: 07/02/18 00:26 Resuscitation Status Routine Resuscitation Status: FULL: Full Resuscitation MAR Reviewed: Yes Vital Signs & Weight: Vital Signs (12 hours) Temp Pulse Resp BP BP Pulse Ox 07/04/18 11:00 98.0 F 91 18 113/52 L 94 L 07/04/18 10:43 92 20 07/04/18 09:28 87 135/62 07/04/18 09:27 87 135/82 07/04/18 08:00 97.8 F 87 20 135/62 96 07/04/18 07:09 86 20 91 L 07/04/18 06:52 91 L 07/04/18 06:50 86 20 91 L 07/04/18 04:00 98.5 F 81 20 129/61 90 L Weight Weight 168 lb 9 oz I&O: 07/03/18 07/04/18 07/05/18 06:59 06:59 06:59 Intake Total 480 1060 Balance 480 1060 Result Diagrams: 07/04/18 07:03 07/04/18 07:03 Additional Labs: Accuchecks 07/04/18 07/04/18 07/03/18 11:36 05:39 20:37 POC Glucose 310 H 282 H 338 H 07/03/18 16:58 POC Glucose 405 H labs reviewed by me Phys Exam - Physical Examination Constitutional: NAD HEENT: moist MMs Neck: supple Respiratory: clear to auscultation bilateral Cardiovascular: RRR Gastrointestinal: soft Neurological: moves all 4 limbs Psychiatric: normal affect Dx/Plan (1) Acute on chronic respiratory failure with hypoxemia Code(s): J96.21 - ACUTE AND CHRONIC RESPIRATORY FAILURE WITH HYPOXIA Status: Acute Comment: Improving, secondary to COPD exacerbation (2) Chronic obstructive pulmonary disease with acute exacerbation Code(s): J44.1 - CHRONIC OBSTRUCTIVE PULMONARY DISEASE W (ACUTE) EXACERBATION Status: Acute Comment: Improving, continue oxygen, steroids, bronchodilators and antibiotics (3) Anxiety and depression Code(s): F41.9 - ANXIETY DISORDER, UNSPECIFIED; F32.9 - MAJOR DEPRESSIVE DISORDER, SINGLE EPISODE, UNSPECIFIED Status: Chronic Comment: mild depression, stable (4) Diabetes type 2, uncontrolled Code(s): E11.65 - TYPE 2 DIABETES MELLITUS WITH HYPERGLYCEMIA Status: Chronic Comment: sugars still high, change lantus to 10 units SC BID (5) HTN (hypertension) Code(s): I10 - ESSENTIAL (PRIMARY) HYPERTENSION Status: Chronic Comment: controlled (6) Tobacco abuse Code(s): Z72.0 - TOBACCO USE Status: Chronic Comment: continue nicotine replacement therapy. - Plan * . Review of Systems - Review of Systems Respiratory: Cough, SOB with Excertion, Sputum. negative: Dry, Shortness of Breath, Hemoptysis, Pleuritic Pain, Wheezing Cardiovascular: negative: chest pain, palpitations, orthopnea, paroxysmal nocturnal dyspnea, edema, light headedness - Medications/Allergies Allergies/Adverse Reactions: Allergies Allergy/AdvReac Type Severity Reaction Status Date / Time No Known Allergies Allergy Verified 07/02/18 16:31 Medications: Current Medications Acetaminophen (Tylenol) 650 mg PO Q4H PRN PRN Reason: Headache/Fever/Mild Pain (1-3) Albuterol/Ipratropium (Duoneb) 3 ml NEB [id number] [facility] Last Admin: 07/04/18 10:43 Dose: 3 ml Alogliptin Benzoate (Alogliptin) 25 mg PO DAILY [facility] Last Admin: 07/04/18 09:27 Dose: 25 mg Amlodipine Besylate (Norvasc) 10 mg PO DAILY [facility] Last Admin: 07/04/18 09:28 Dose: 10 mg Clonidine (Catapres) 0.2 mg PO BID [facility] Last Admin: 07/04/18 09:28 Dose: 0.2 mg Dextrose/Water (Dextrose 50%) 25 gm IVP PRN PRN PRN Reason: HYPOGLYCEMIA PROTOCOL Enoxaparin Sodium (Lovenox) 40 mg SC 0900 [facility] Last Admin: 07/04/18 09:28 Dose: 40 mg Fenofibrate (Tricor) 48 mg PO DAILY [facility] Last Admin: 07/04/18 09:28 Dose: 48 mg Furosemide (Lasix) 80 mg PO DAILY [facility] Last Admin: 07/04/18 09:27 Dose: 80 mg Gabapentin (Neurontin) 300 mg PO TID [facility] Last Admin: 07/04/18 09:27 Dose: 300 mg Glimepiride (Amaryl) 4 mg PO BID-[facility] Last Admin: 07/04/18 09:28 Dose: 4 mg Glucagon (Glucagon) 1 mg IM PRN PRN PRN Reason: HYPOGLYCEMIA PROTOCOL Guaifenesin (Mucinex) 600 mg PO BID [facility] Last Admin: 07/04/18 09:28 Dose: 600 mg Hydralazine HCl (Apresoline) 50 mg PO BID [facility] Last Admin: 07/04/18 09:27 Dose: 50 mg Levofloxacin 750 mg/ Device 150 mls @ 100 mls/hr IVPB Q24HR [facility] Last Admin: 07/04/18 00:22 Dose: 150 mls Dextrose/Water (D5w) 1,000 mls @ 0 mls/hr IV INF PRN PRN Reason: HYPOGLYCEMIA PROTOCOL Insulin Glargine 10 units/ (Miscellaneous Medication) 0.1 mls @ 0 mls/hr SC QAM [facility] Last Admin: 07/04/18 09:29 Dose: 0.1 mls Insulin Human Lispro (Humalog) 0 units SC .AGGRESSIVE SLIDING PRN; Protocol PRN Reason: AGGRESSIVE SLIDING SCALE Last Admin: 07/04/18 12:44 Dose: 11 unit Losartan Potassium (Cozaar) 100 mg PO DAILY [facility] Last Admin: 07/04/18 09:27 Dose: 100 mg Metformin HCl (Glucophage) 1,000 mg PO BID-WM [facility] Last Admin: 07/04/18 09:27 Dose: 1,000 mg Methylprednisolone Sodium Succinate (Solu-Medrol) 20 mg IVP Q6HR [facility] Last Admin: 07/04/18 12:44 Dose: 20 mg Mirtazapine (Remeron) 15 mg PO HS [facility] Last Admin: 07/03/18 20:08 Dose: 15 mg Mometasone Furoate/Formoterol Fumar (Dulera 200 Mcg/5 Mcg Inhaler) 2 puff INH BID-RT [facility] Last Admin: 07/04/18 07:09 Dose: 2 puff Nicotine (Nicoderm Patch) 21 mg TD DAILY [facility] Last Admin: 07/04/18 09:29 Dose: 21 mg Ondansetron HCl (Zofran Odt) 4 mg PO Q6H PRN PRN Reason: Nausea/Vomiting Ondansetron HCl (Zofran) 4 mg IVP Q6H PRN PRN Reason: Nausea/Vomiting Sertraline HCl (Zoloft) 100 mg PO DAILY [facility] Last Admin: 07/04/18 09:27 Dose: 100 mg Simvastatin (Zocor) 10 mg PO HS [facility] Last Admin: 07/03/18 20:07 Dose: 10 mg Sodium Chloride (Flush - Normal Saline) 10 ml IVF Q12HR [facility] Last Admin: 07/04/18 10:47 Dose: 10 ml Sodium Chloride (Flush - Normal Saline) 10 ml IVF PRN PRN PRN Reason: Saline Flush Last Admin: 07/04/18 05:30 Dose: 10 ml
--- NOTE | 2018-07-04 17:52 | PRG ---
DATE OF SERVICE: 07/04/2018 SUBJECTIVE: Ms. Gutierrez is in no distress. OBJECTIVE: VITAL SIGNS: She is afebrile. Heart rate is 92, respiratory rate is 20, oximetry is 94%, and blood pressure 113/52. LUNGS: Free of wheezes at this time. HEART: Regular rhythm. ABDOMEN: Soft. LABORATORY DATA: White count 15.6, hemoglobin 12.7, and platelets 275. Sodium 133, potassium 5.1, chloride 99, bicarb 21, BUN 21, creatinine 0.88, glucose 289. IMPRESSION: 1. Acute on chronic respiratory failure with hypoxemia. 2. Chronic obstructive pulmonary disease exacerbation. 3. Diabetes. 4. Deconditioning. 5. Hypertension. 6. Ongoing tobacco use. In my opinion, it is very unlikely that she will quit smoking. She needs to be out of bed more as I have explained to her and she needs to be ambulating if she will be discharged directly to home. Every time I come in to see her, she is in bed, completely covered up by the covers and did not even want to sit up for an exam. Job ID: [id number]
[2018-07-04] MEDS: Mirtazapine 15 MG TAB PO SCH (19:55)
[2018-07-04] MEDS: Simvastatin 5 MG TAB PO SCH (19:55)
[2018-07-05] MEDS: HumaLOG 300 UNITS/3 ML VIAL SC PRN ×4 (05:42→19:47)
[2018-07-05 07:51] LABS: #Lymphocytes 2.6 thou/uL (1.20-3.40); #Monocytes 0.7 thou/uL (0.11-0.59); #Neutrophils 11.5 thou/uL (1.40-6.50); %Basophils 0.1 % (0.0-1.0); %Eosinophils 0.1 % (0.0-10.0); %Lymphocytes 17.5 % (21.0-51.0); %Monocytes 4.9 % (0.0-10.0); %Neutrophils 77.3 % (42.0-75.0); Mean Corpuscular HGB CONC 31.3 g/dL (32.0-36.0); Mean Corpuscular Hemoglobin 27.9 pg (27.0-31.0); Mean Corpuscular Volume 89.2 fL (78.0-98.0); Mean Platelet Volume 9.3 fL (7.4-10.4); Platelet Count 269 thou/uL (130-400); Red Blood Cell (RBC) Count 4.66 mill/uL (4.20-5.40); White Blood Cell (WBC) Count 14.9 thou/uL (4.8-10.8)
[2018-07-05 08:12] LABS: Anion Gap 14 mmol/L (10-20); BUN (Urea Nitrogen) 28 mg/dL (9.8-20.1); Calc. Creatinine Clearance 71 mL/min (70-130); Calcium 10.1 mg/dL (7.8-10.44); Carbon Dioxide 29 mmol/L (23-31); Chloride 99 mmol/L (98-107); Estimated GFR-MDRD 73; Glucose 224 mg/dL (80-115); Potassium 3.6 mmol/L (3.5-5.1); Sodium 138 mmol/L (136-145)
[2018-07-05] MEDS: Insulin Glargine 10 UNITS in Pre-Filled Syringe 1 EACH SC SCH ×2 (10:24→19:46)
[2018-07-05] MEDS: Losartan 25 MG TAB PO SCH (10:25)
[2018-07-05] MEDS: Gabapentin 300 MG CAP PO SCH ×3 (10:25→19:47)
[2018-07-05] MEDS: Amlodipine 10 MG TAB PO SCH (10:25)
[2018-07-05] MEDS: Alogliptin 25 MG TAB PO SCH (10:25)
[2018-07-05] MEDS: predniSONE 20 MG TAB PO SCH (10:26)
[2018-07-05] MEDS: guaiFENesin ER 600 MG TAB PO SCH ×2 (10:26→19:47)
[2018-07-05] MEDS: Furosemide 80 MG TAB PO SCH (10:26)
[2018-07-05] MEDS: cloNIDine 0.2 MG TAB PO SCH ×2 (10:26→19:47)
[2018-07-05] MEDS: Glimepiride 4 MG TAB PO SCH ×2 (10:26→16:24)
[2018-07-05] MEDS: metFORMIN 500 MG TAB PO SCH ×2 (10:26→16:24)
[2018-07-05] MEDS: Nicotine 21 MG PATCH TD SCH (10:27)
[2018-07-05] MEDS: hydrALAZINE 25 MG TAB PO SCH ×2 (10:27→19:48)
[2018-07-05] MEDS: Fenofibrate 48 MG TAB PO SCH (10:27)
[2018-07-05] MEDS: Enoxaparin Sodium 40 MG/0.4 ML SYRINGE SC SCH (10:33)
--- NOTE | 2018-07-05 13:46 | PDOC.PN ---
- Subjective Encounter Start Date: 07/05/18 Encounter Start Time: 09:40 Pt seen for followup re: acute on chronic hypoxic respiratory failure. Feels better, not ambulating much. - Objective Resuscitation Status - Order Detail: 07/02/18 00:26 Resuscitation Status Routine Resuscitation Status: FULL: Full Resuscitation MAR Reviewed: Yes Vital Signs & Weight: Vital Signs (12 hours) Temp Pulse Resp BP BP Pulse Ox 07/05/18 11:00 98.3 F 115 H 20 111/69 92 L 07/05/18 10:39 80 20 07/05/18 10:27 92 122/74 07/05/18 10:26 122/74 07/05/18 10:25 92 122/74 07/05/18 08:00 92 L 07/05/18 07:59 97.7 F 92 20 108/77 97 07/05/18 06:37 95 07/05/18 06:33 75 20 95 07/05/18 02:02 95 16 94 L Weight Weight 166 lb 14.4 oz I&O: 07/04/18 07/05/18 07/06/18 06:59 06:59 06:59 Intake Total 1060 1730 Balance 1060 1730 Result Diagrams: 07/05/18 07:26 07/05/18 07:26 Additional Labs: Accuchecks 07/05/18 07/05/18 07/04/18 12:01 04:49 19:43 POC Glucose 270 H 418 H 276 H 07/04/18 16:56 POC Glucose 146 H labs reviewed by me Phys Exam - Physical Examination Obese HEENT: moist MMs Neck: supple Respiratory: clear to auscultation bilateral Cardiovascular: RRR Gastrointestinal: soft Neurological: moves all 4 limbs Psychiatric: normal affect Dx/Plan (1) Acute on chronic respiratory failure with hypoxemia Code(s): J96.21 - ACUTE AND CHRONIC RESPIRATORY FAILURE WITH HYPOXIA Status: Acute Comment: Improving (2) Chronic obstructive pulmonary disease with acute exacerbation Code(s): J44.1 - CHRONIC OBSTRUCTIVE PULMONARY DISEASE W (ACUTE) EXACERBATION Status: Acute Comment: Continue oxygen, steroids, bronchodilators and antibiotics (3) Anxiety and depression Code(s): F41.9 - ANXIETY DISORDER, UNSPECIFIED; F32.9 - MAJOR DEPRESSIVE DISORDER, SINGLE EPISODE, UNSPECIFIED Status: Chronic Comment: mild depression, stable (4) Diabetes type 2, uncontrolled Code(s): E11.65 - TYPE 2 DIABETES MELLITUS WITH HYPERGLYCEMIA Status: Chronic Comment: Improving control (5) HTN (hypertension) Code(s): I10 - ESSENTIAL (PRIMARY) HYPERTENSION Status: Chronic Comment: controlled (6) Tobacco abuse Code(s): Z72.0 - TOBACCO USE Status: Chronic Comment: on nicotine replacement therapy. - Plan continue antibiotics, PT/OT, out of bed/ambulate * . Review of Systems - Review of Systems Respiratory: Cough, Dry, SOB with Excertion. negative: Shortness of Breath, Hemoptysis, Pleuritic Pain, Sputum, Wheezing Cardiovascular: negative: chest pain, palpitations, orthopnea, paroxysmal nocturnal dyspnea, edema, light headedness - Medications/Allergies Allergies/Adverse Reactions: Allergies Allergy/AdvReac Type Severity Reaction Status Date / Time No Known Allergies Allergy Verified 07/02/18 16:31 Medications: Current Medications Acetaminophen (Tylenol) 650 mg PO Q4H PRN PRN Reason: Headache/Fever/Mild Pain (1-3) Albuterol/Ipratropium (Duoneb) 3 ml NEB [id number] [facility] Last Admin: 07/05/18 10:39 Dose: 3 ml Alogliptin Benzoate (Alogliptin) 25 mg PO DAILY [facility] Last Admin: 07/05/18 10:25 Dose: 25 mg Amlodipine Besylate (Norvasc) 10 mg PO DAILY [facility] Last Admin: 07/05/18 10:25 Dose: 10 mg Clonidine (Catapres) 0.2 mg PO BID [facility] Last Admin: 07/05/18 10:26 Dose: 0.2 mg Dextrose/Water (Dextrose 50%) 25 gm IVP PRN PRN PRN Reason: HYPOGLYCEMIA PROTOCOL Enoxaparin Sodium (Lovenox) 40 mg SC 0900 [facility] Last Admin: 07/05/18 10:33 Dose: 40 mg Fenofibrate (Tricor) 48 mg PO DAILY [facility] Last Admin: 07/05/18 10:27 Dose: 48 mg Furosemide (Lasix) 80 mg PO DAILY [facility] Last Admin: 07/05/18 10:26 Dose: 80 mg Gabapentin (Neurontin) 300 mg PO TID [facility] Last Admin: 07/05/18 10:25 Dose: 300 mg Glimepiride (Amaryl) 4 mg PO BID[facility] Last Admin: 07/05/18 10:26 Dose: 4 mg Glucagon (Glucagon) 1 mg IM PRN PRN PRN Reason: HYPOGLYCEMIA PROTOCOL Guaifenesin (Mucinex) 600 mg PO BID [facility] Last Admin: 07/05/18 10:26 Dose: 600 mg Hydralazine HCl (Apresoline) 50 mg PO BID [facility] Last Admin: 07/05/18 10:27 Dose: 50 mg Dextrose/Water (D5w) 1,000 mls @ 0 mls/hr IV INF PRN PRN Reason: HYPOGLYCEMIA PROTOCOL Insulin Glargine 10 units/ (Miscellaneous Medication) 0.1 mls @ 0 mls/hr [facility] Last Admin: 07/05/18 10:24 Dose: 0.1 mls Insulin Glargine 10 units/ (Miscellaneous Medication) 0.1 mls @ 0 mls/hr SC [facility] Last Admin: 07/04/18 19:54 Dose: 0.1 mls Insulin Human Lispro (Humalog) 0 units SC .AGGRESSIVE SLIDING PRN; Protocol PRN Reason: AGGRESSIVE SLIDING SCALE Last Admin: 07/05/18 05:42 Dose: 13 unit Losartan Potassium (Cozaar) 100 mg PO DAILY [facility] Last Admin: 07/05/18 10:25 Dose: 100 mg [facility] (Gluc[facility]) [facility] Last Admin: 07/05/18 10:26 Dose: 1,000 mg Mirtazapine (Remeron) 15 mg PO [facility] Last Admin: 07/04/18 19:55 Dose: 15 mg Nicotine (Nicoderm Patch) 21 mg TD DAILY [facility] Last Admin: 07/05/18 10:27 Dose: 21 mg Ondansetron HCl (Zofran Odt) 4 mg PO Q6H PRN PRN Reason: Nausea/Vomiting Ondansetron HCl (Zofran) 4 mg IVP Q6H PRN PRN Reason: Nausea/Vomiting Prednisone (Prednisone) 40 mg PO [facility] Last Admin: 07/05/18 10:26 Dose: 40 mg Sertraline HCl (Zoloft) 100 mg PO DAILY [facility] Last Admin: 07/05/18 10:25 Dose: 100 mg Simvastatin (Zocor) 10 mg PO [facility] Last Admin: 07/04/18 19:55 Dose: 10 mg Sodium Chloride (Flush - Normal Saline) 10 ml IVF Q12HR [facility] Last Admin: 07/05/18 10:28 Dose: 10 ml Sodium Chloride (Flush - Normal Saline) 10 ml IVF PRN PRN PRN Reason: Saline Flush Last Admin: 07/04/18 05:30 Dose: 10 ml
--- NOTE | 2018-07-05 19:19 | PRG ---
DATE OF SERVICE: 07/05/2018 SUBJECTIVE: Deja Gutierrez was lying in bed supine this morning. She is in bed with her head covered up every morning when I make rounds on her. She says she wants to go home. It has been explained to her that if she does not start moving and get out of bed, she will not go home. She was not wheezing today when I saw her. OBJECTIVE: HEART: Regular rhythm. ABDOMEN: Soft. VITAL SIGNS: Have been stable. Oximetry is 91 to 92 on 3 L cannula. She is afebrile. Heart rates in the 90s, blood pressure 113/46 this afternoon. IMPRESSION: 1. Chronic obstructive pulmonary disease exacerbation, slowly improving. 2. Deconditioning with poor compliance with my recommendations that she get out of bed everyday. We will continue to follow. Job ID: [id number]
[2018-07-05] MEDS: Simvastatin 5 MG TAB PO SCH (19:47)
[2018-07-05] MEDS: Mirtazapine 15 MG TAB PO SCH (19:47)
[2018-07-06] MEDS: HumaLOG 300 UNITS/3 ML VIAL SC PRN ×2 (04:26→13:05)
[2018-07-06 07:03] LABS: Anion Gap 16 mmol/L (10-20); BUN (Urea Nitrogen) 32 mg/dL (9.8-20.1); Calc. Creatinine Clearance 71 mL/min (70-130); Calcium 10.6 mg/dL (7.8-10.44); Carbon Dioxide 31 mmol/L (23-31); Chloride 94 mmol/L (98-107); Estimated GFR-MDRD 73; Glucose 199 mg/dL (80-115); Potassium 3.5 mmol/L (3.5-5.1); Sodium 137 mmol/L (136-145)
[2018-07-06] MEDS: Nicotine 21 MG PATCH TD SCH (09:48)
[2018-07-06] MEDS: cloNIDine 0.2 MG TAB PO SCH (09:49)
[2018-07-06] MEDS: Losartan 25 MG TAB PO SCH (09:49)
[2018-07-06] MEDS: metFORMIN 500 MG TAB PO SCH (09:50)
[2018-07-06] MEDS: Gabapentin 300 MG CAP PO SCH ×2 (09:50→15:13)
[2018-07-06] MEDS: predniSONE 20 MG TAB PO SCH (09:50)
[2018-07-06] MEDS: guaiFENesin ER 600 MG TAB PO SCH (09:50)
[2018-07-06] MEDS: Alogliptin 25 MG TAB PO SCH (09:50)
[2018-07-06] MEDS: hydrALAZINE 25 MG TAB PO SCH (09:50)
[2018-07-06] MEDS: Furosemide 80 MG TAB PO SCH (09:51)
[2018-07-06] MEDS: Enoxaparin Sodium 40 MG/0.4 ML SYRINGE SC SCH (09:51)
[2018-07-06] MEDS: Amlodipine 10 MG TAB PO SCH (09:51)
[2018-07-06] MEDS: Insulin Glargine 10 UNITS in Pre-Filled Syringe 1 EACH SC SCH (09:52)
[2018-07-06] MEDS: Glimepiride 4 MG TAB PO SCH (09:52)
[2018-07-06] MEDS: Fenofibrate 48 MG TAB PO SCH (09:52)
[2018-07-06 09:57] LABS: Hemoglobin 12.7 g/dL (12.0-16.0); Lymphocytes 15 % (21-51); MDiff Complete? YES; Mean Corpuscular HGB CONC 31.4 g/dL (32.0-36.0); Mean Corpuscular Hemoglobin 28.2 pg (27.0-31.0); Mean Corpuscular Volume 89.6 fL (78.0-98.0); Mean Platelet Volume 9.2 fL (7.4-10.4); Monocytes 7 % (0-10); Neutrophil 78 % (42-75); Platelet Count 253 thou/uL (130-400); Platelet Morphology Comment Appears Adequate; Polychromasia SLIGHT = 2-3 cells (100X) (0-2/hpf); RBC Distribution Width 14.1 % (11.5-14.5); Red Blood Cell (RBC) Count 4.51 mill/uL (4.20-5.40); White Blood Cell (WBC) Count 14.9 thou/uL (4.8-10.8)
--- NOTE | 2018-07-06 11:19 | PRG ---
DATE OF SERVICE: 07/06/2018 SUBJECTIVE: Deja Gutierrez was in bed this morning, in sleep, I awakened her. She said she walked yesterday. OBJECTIVE: VITAL SIGNS: Heart rate later this morning is 101, earlier is 92, respiratory rate in the teens, oximetry is 96% on 3 L. She says she has oxygen at home. LUNGS: Her lungs are completely clear. HEART: Regular rhythm. ABDOMEN: Soft and nontender. LABORATORY DATA: White count 14.9, hemoglobin 12.7, platelets 253,000. Sodium 137, potassium 3.5, chloride 94, bicarb 31, BUN 32, creatinine 0.93, glucose 199. IMPRESSION: 1. Chronic obstructive pulmonary disease exacerbation. 2. Deconditioning. 3. Diabetes. Probably, it would be reasonable to discharge her home with slow steroid taper, nebulizer treatments four times a day and follow up with me in 3 to 4 weeks. She is again encouraged not to smoke. Job ID: [id number]
[2018-07-06 12:23] VITALS: TEMP 98.2
--- NOTE | 2018-07-06 14:29 | DIS ---
DATE OF ADMISSION: 07/01/2018 DATE OF DISCHARGE: 07/06/2018 PRIMARY CARE PROVIDER: Dr. Maged Ventura. DISCHARGE DIAGNOSES: 1. Acute on chronic hypoxic respiratory failure. 2. Chronic obstructive pulmonary disease exacerbation. CONSULTATIONS DURING THIS HOSPITALIZATION: Pulmonary and Critical Care Medicine, Dr. Valladares. DISCHARGE MEDICATIONS: 1. Amlodipine 10 mg daily. 2. Clonidine 0.2 mg 2 times a day. 3. Tricor 48 mg daily. 4. Lasix 80 mg daily. 5. Gabapentin 300 mg three times a day. 6. Amaryl 4 mg 2 times a day. 7. Tresiba 10 units daily. 8. Losartan 100 mg daily. 9. Metformin 1000 mg 2 times a day. 10. Mirtazapine 15 mg at bedtime. 11. Prednisone taper over two weeks. 12. Sertraline 100 mg daily. 13. Simvastatin 10 mg at bedtime. 14. Januvia 100 mg daily. 15. Tylenol regular strength 650 mg every 4 hours as needed. 16. Hydralazine 50 mg 2 times a day. 17. DuoNebs 3 mL four times a day. 18. Dulera 200/5 mcg 2 puffs two times a day. CONDITION OF PATIENT ON THE DAY OF DISCHARGE: Stable. I assessed Ms. Gutierrez on the day of discharge. She denies any chest pain or shortness of breath. Vital signs are stable. S1 and S2 are heard, regular. Lungs are clear to auscultation bilaterally. HOSPITAL COURSE: Ms. Gutierrez is a pleasant 68-year-old lady, who was admitted to [facility] on July 02, 2018, for acute on chronic hypoxic respiratory failure secondary to chronic obstructive pulmonary disease exacerbation. She was seen by Pulmonology Service. She improved with oxygen, steroids, and bronchodilators. She was seen by Physical Therapy Service. She was ambulating. She is being discharged home in a stable condition. Many thanks for allowing me to participate in your patient's care. Please feel free to contact me with any questions or concerns. LABORATORY DATA: On the day of discharge, Ms. Gutierrez has white count 14,900, hemoglobin 12.7, platelet count 253,000, sodium 137, potassium 3.5, and creatinine 0.93. BNP during this hospitalization was 135. DISCHARGE DESTINATION: Home. TIME SPENT: Total amount of time spent coordinating this discharge: 31 minutes. Job ID: [id number]
[2018-07-06 15:09] VITALS: BP 124/58
== END 2018-07-06 15:10 | disposition home health service (06) | DRG 189 ==
LOC: ERS 19:59 → ERHOLD 22:49 → 2NO 07-02 16:10 → T4-B 07-03 17:52
PROVIDERS: ADMIT Hospitalist; ATTEND Hospitalist
DX: J96.21 Acute and chronic respiratory failure with hypoxia (principal); I50.30 Unspecified diastolic (congestive) heart failure; J44.1 Chronic obstructive pulmonary disease with (acute) exacerbation; J96.22 Acute and chronic respiratory failure with hypercapnia; I11.0 Hypertensive heart disease with heart failure; E11.65 Type 2 diabetes mellitus with hyperglycemia; F17.210 Nicotine dependence, cigarettes, uncomplicated; F32.9 Major depressive disorder, single episode, unspecified; E78.2 Mixed hyperlipidemia; F41.9 Anxiety disorder, unspecified; Z79.84 Long term (current) use of oral hypoglycemic drugs; Z79.899 Other long term (current) drug therapy
CPT/HCPCS: 36415; 36416; 51701; 71045; 80048; 80053; 81003; 82805; 83605; 83735; 83880; 84484; 85025; 87804; 93005; 94640; 94660; 96365; 96366; 96367; A4353; J1650; J1825; J1956; J2920; J3475; J7611; J7620

== ENCOUNTER 2018-08-13 09:33 | Outpatient (CLI) | payer MEDICARE, MEDICAID ==
--- NOTE | 2018-08-13 10:27 | RAD ---
CHEST 2 VIEWS: Date: 08/13/18 HISTORY: Dyspnea. COMPARISON: 07/01/18. FINDINGS: Heart size is normal. Mild stable increased markings bilaterally. No confluent pneumonia, overt edema , or pleural effusion. IMPRESSION: Stable mild chronic changes. Atherosclerosis of aorta. No acute intrathoracic disease. POS: C
== END 2018-08-13 09:34 | disposition home or self-care (01) ==
LOC: RAD 09:33
PROVIDERS: ATTEND Internal Medicine Critical Care Medicine
DX: R06.00 Dyspnea, unspecified (principal); I70.0 Atherosclerosis of aorta
CPT/HCPCS: 71046

== ENCOUNTER 2018-08-26 13:45 | Emergency (ER) | payer MEDICARE, OTHER | END 2018-08-26 17:17 | disposition home or self-care (01) | LOC: ERS 13:45 | DX: E11.65 Type 2 diabetes mellitus with hyperglycemia (principal); R09.02 Hypoxemia; J44.9 Chronic obstructive pulmonary disease, unspecified; F32.9 Major depressive disorder, single episode, unspecified; F41.9 Anxiety disorder, unspecified; F17.210 Nicotine dependence, cigarettes, uncomplicated | CPT/HCPCS: 36416 ==

== ENCOUNTER 2019-01-14 10:59 | Emergency (ER) | payer MEDICARE, OTHER ==
--- NOTE | 2019-01-14 11:39 | RAD ---
XR Chest 1 View Portable HISTORY: Dyspnea COMPARISON: 07/01/2018 FINDINGS: The heart size is at upper limits of normal. The lungs are well expanded without focal area s of consolidation, pneumothorax or pleural effusions. IMPRESSION: No radiographic evidence of acute cardiopulmonary process.
[2019-01-14 11:43] LABS: #Eosinphils 0.1 thou/uL (0.0-0.7); #Lymphocytes 1.4 thou/uL (1.20-3.40); #Monocytes 0.4 thou/uL (0.11-0.59); %Basophils 0.1 % (0.0-1.0); %Eosinophils 1.2 % (0.0-10.0); %Monocytes 5.3 % (0.0-10.0); %Neutrophils 75.4 % (42.0-75.0); Hemoglobin 12.5 g/dL (12.0-16.0); Mean Corpuscular HGB CONC 31.2 g/dL (32.0-36.0); Mean Corpuscular Hemoglobin 27.8 pg (27.0-31.0); Mean Platelet Volume 10.4 fL (7.4-10.4); Platelet Count 156 thou/uL (130-400); RBC Distribution Width 15.1 % (11.5-14.5); White Blood Cell (WBC) Count 7.9 thou/uL (4.8-10.8)
[2019-01-14 12:04] LABS: ALT (SGPT) 9 U/L (8-55); AST (SGOT) 22 U/L (5-34); Albumin 3.8 g/dL (3.4-4.8); Alkaline Phosphatase 92 U/L (40-150); Anion Gap 11 mmol/L (10-20); BUN (Urea Nitrogen) 10 mg/dL (9.8-20.1); Bilirubin, Total 0.7 mg/dL (0.2-1.2); Calc. Creatinine Clearance 0 mL/min (70-130); Calcium 9.6 mg/dL (7.8-10.44); Carbon Dioxide 30 mmol/L (23-31); Chloride 97 mmol/L (98-107); Estimated GFR-MDRD 75; Globulin 3.9 g/dL (2.4-3.5); Glucose 436 mg/dL (80-115); Potassium 4.1 mmol/L (3.5-5.1); Protein, Total 7.7 g/dL (6.0-8.3); Sodium 134 mmol/L (136-145)
== END 2019-01-14 13:56 | disposition left against medical advice (07) ==
LOC: ERS 10:59
DX: R06.00 Dyspnea, unspecified (principal); R09.02 Hypoxemia; E78.5 Hyperlipidemia, unspecified; J44.9 Chronic obstructive pulmonary disease, unspecified; E11.9 Type 2 diabetes mellitus without complications; F31.9 Bipolar disorder, unspecified; F17.210 Nicotine dependence, cigarettes, uncomplicated; Z79.899 Other long term (current) drug therapy; Z79.84 Long term (current) use of oral hypoglycemic drugs
CPT/HCPCS: 36415; 71045; 80053; 85025; 93005; 94640; 94760; J7620